=== PATIENT | male | born 1960 | race Caucasian/White ===

== ENCOUNTER 2020-10-23 08:11 | Outpatient (REF) | payer BC, SELFPAY ==
[2020-10-23 11:44] LABS: Alanine Aminotransferase 23 U/L (0-40); Albumin Level 4.3 g/dL (3.5-5.0); Alkaline Phosphatase 62 U/L (39-117); Anion Gap 13 (12-20); Aspartate Amino Transferase 22 U/L (5-37); Bilirubin Total 0.4 mg/dL (0.0-1.0); Blood Urea Nitrogen 19 mg/dL (9-16); Calcium 9.1 mg/dL (8.4-10.2); Carbon Dioxide 26 mmol/L (22-29); Chloride 104 mmol/L (96-108); Cholesterol 138 mg/dL; Estimated Glomerular Filt Rate > 60; Glucose Fasting 97 mg/dL (60-99); HDL Cholesterol 43 mg/dL; LDL Cholesterol Calculated 66 mg/dl; Sodium 139 mmol/L (135-145); Total Protein 7.2 g/dL (6.5-8.0); Triglycerides 146 mg/dL
[2020-10-23 12:07] LABS: Prostate Specific Antigen Scr 0.67 ng/mL (<0.05-4.0); TSH reflex Free T4 1.52 mIU/mL (0.32-4.0)
== END 2020-10-23 08:12 | disposition home or self-care (01) ==
LOC: HO.HMGCLDS 08:11
PROVIDERS: PCP Nurse Practitioner Family; Visit Provider Nurse Practitioner Family
DX: I10 Essential (primary) hypertension (principal); Z12.5 Encounter for screening for malignant neoplasm of prostate
CPT/HCPCS: 80053; 80061; 84153; 84443

== ENCOUNTER 2021-02-25 10:50 | Outpatient (REF) | payer BC, SELFPAY ==
--- NOTE | ~2021-02-25 | XR_ITS ---
EXAMINATION: XR CHEST CLINICAL INFORMATION: Cough. COMPARISON: Chest 12/05/2015 TECHNIQUE: 2 views of the chest were obtained. FINDINGS: The lungs are hyperinflated but clear of acute process. Heart size and pulmonary vascularity is normal. There is moderate spondylosis of dorsal spine. No lytic process. XR/XR chest 2V IMPRESSION: Hyperinflated lungs. No acute process.
== END 2021-02-25 10:51 | disposition home or self-care (01) ==
LOC: HO.HMGCX 10:50
PROVIDERS: Visit Provider Hospitalist
DX: R05 Cough (principal)
CPT/HCPCS: 71046

== ENCOUNTER 2021-05-07 10:24 | Outpatient (REF) | payer BC, SELFPAY ==
--- NOTE | ~2021-05-07 | XR_ITS ---
EXAMINATION: XR CHEST CLINICAL INFORMATION: Bronchitis; J40. COMPARISON: Chest radiographs 02/25/2021, 12/05/2015 TECHNIQUE: 2 views of the chest were obtained. FINDINGS: There is no hyperinflation, airspace consolidation, or effusion. The costophrenic sulci are well-defined. No bronchiectasis demonstrated. The vascularity is normal. The heart is normal in size. The hilar and mediastinal contours and bony structures are stable. XR/XR chest 2V IMPRESSION: No acute intrathoracic disease.
== END 2021-05-07 10:25 | disposition home or self-care (01) ==
LOC: HO.HMGCX 10:24
PROVIDERS: PCP Nurse Practitioner Family; Visit Provider Hospitalist
DX: J40 Bronchitis, not specified as acute or chronic (principal)
CPT/HCPCS: 71046

== ENCOUNTER → 2021-08-20 15:28 | Outpatient (BNVA) | payer BC, SELFPAY | PROVIDERS: PCP Nurse Practitioner Family; Visit Provider Internal Medicine ==

== ENCOUNTER 2021-09-17 08:44 | Outpatient (REF) | payer BC, SELFPAY ==
[2021-09-17 11:42] LABS: Appearance Urine CLEAR; Color Urine STRAW; Glucose Urine UA NEG (NEG); Leukocyte Esterase Urine NEG (NEG); Nitrite Urine NEG (NEG); UACC Culture Trigger NO; Urine Blood 2+ (NEG); Urine Ketones NEG (NEG); Urine Protein NEG (NEG-TRACE)
[2021-09-17 11:56] LABS: Alanine Aminotransferase 28 U/L (0-40); Albumin Level 4.5 g/dL (3.5-5.0); Alkaline Phosphatase 73 U/L (39-117); Anion Gap 11 (12-20); Aspartate Amino Transferase 26 U/L (5-37); Bilirubin Total 0.6 mg/dL (0.0-1.0); Blood Urea Nitrogen 16 mg/dL (9-16); Calcium 9.3 mg/dL (8.4-10.2); Carbon Dioxide 28 mmol/L (22-29); Chloride 104 mmol/L (96-108); Cholesterol 134 mg/dL; Estimated Glomerular Filt Rate > 60; Glucose Fasting 105 mg/dL (60-99); HDL Cholesterol 40 mg/dL; LDL Cholesterol Calculated 66 mg/dl; Potassium 4.1 mmol/L (3.3-5.1); Sodium 139 mmol/L (135-145); Total Protein 7.3 g/dL (6.5-8.0); Triglycerides 142 mg/dL
[2021-09-17 12:03] LABS: Prostate Specific Antigen Scr 0.39 ng/mL (<0.05-4.0); TSH reflex Free T4 1.39 uIU/mL (0.32-4.0)
== END 2021-09-17 08:45 | disposition home or self-care (01) ==
LOC: HO.HMGCLDS 08:44
PROVIDERS: PCP Nurse Practitioner Family; Visit Provider Nurse Practitioner Family
DX: Z00.00 Encounter for general adult medical examination without abnormal findings (principal); Z12.5 Encounter for screening for malignant neoplasm of prostate
CPT/HCPCS: 36415; 80053; 80061; 81001; 84153; 84443

== ENCOUNTER → 2021-09-29 15:45 | Outpatient (BNVA) | payer BC, SELFPAY | PROVIDERS: PCP Nurse Practitioner Family; Visit Provider Internal Medicine ==

== ENCOUNTER 2021-10-13 15:41 | Outpatient (REF) | payer BC, SELFPAY ==
--- NOTE | 2021-10-13 17:38 | PFT_ITS ---
Forced vital capacity, FEV1, GQC07-75, and MVV are all normal. There is no change after bronchodilator therapy. Total lung capacity normal. Residual volume is slightly decreased. Diffusion capacity normal. CONCLUSION: Normal pulmonary function test. No response to bronchodilator therapy noted. Ryder Prasad MD MSB/MODL / [id number]
== END 2021-10-13 15:42 | disposition home or self-care (01) ==
LOC: HO.RESP 15:41
PROVIDERS: PCP Nurse Practitioner Family; Visit Provider Internal Medicine
DX: J45.909 Unspecified asthma, uncomplicated (principal); R05.9 Cough, unspecified
CPT/HCPCS: 94060; 94727; 94729

== ENCOUNTER 2021-11-18 08:01 | Outpatient (REF) | payer BC, SELFPAY ==
[2021-11-18 11:27] LABS: MANUAL DIFF FLAG NO
[2021-11-18 11:30] LABS: Basophils Percent Auto 0.6 % (0-2); Eosinophils Absolute Auto 0.3 X10*3/uL (0.0-0.4); Eosinophils Percent Auto 5.5 % (0-4); Hematocrit 45.3 % (42.0-52.0); Imm Gran Abs Auto 0.02 X10*3/uL (0.00-0.03); Imm Gran Pct Auto 0.3 % (0.0-0.4); Lymphocytes Absolute Auto 1.5 X10*3/uL (1.2-4.9); Lymphocytes Percent Auto 24.3 % (20-40); Mean Corpuscular HGB Conc 33.1 g/dl (31.0-36.0); Mean Corpuscular Hemoglobin 29.5 pg (27.0-33.0); Monocytes Absolute Auto 0.5 X10*3/uL (0.1-1.2); Monocytes Percent Auto 7.2 % (2-11); Neutrophils Absolute Auto 3.9 x10*3/uL (2.0-8.3); Neutrophils Percent Auto 62.1 % (45-73); Platelet Count 227 X10*3/uL (160-400); Red Blood Count 5.09 X10*6/uL (4.60-5.80); Red Cell Distribution Width 12.3 % (11.0-16.0); White Blood Count 6.2 X10*3/uL (4.8-10.8)
[2021-11-18 11:34] LABS: Prothrombin Time 11.2 SEC (9.9-13.0)
[2021-11-18 11:36] LABS: Partial Thromboplastin Time 32.1 SEC (24.1-38.0)
[2021-11-18 11:51] LABS: Alanine Aminotransferase 34 U/L (0-40); Albumin Level 4.4 g/dL (3.5-5.0); Alkaline Phosphatase 73 U/L (39-117); Anion Gap 11 (12-20); Aspartate Amino Transferase 26 U/L (5-37); Bilirubin Total 0.8 mg/dL (0.0-1.0); Blood Urea Nitrogen 22 mg/dL (9-16); Calcium 9.7 mg/dL (8.4-10.2); Carbon Dioxide 28 mmol/L (22-29); Chloride 106 mmol/L (96-108); Estimated Glomerular Filt Rate > 60; Glucose Random 113 mg/dL (60-115); Potassium 4.4 mmol/L (3.3-5.1); Sodium 141 mmol/L (135-145); Total Protein 7.3 g/dL (6.5-8.0)
== END 2021-11-18 08:02 | disposition home or self-care (01) ==
LOC: HO.HMGCLDS 08:01
PROVIDERS: PCP Nurse Practitioner Family; Visit Provider Nurse Practitioner Family
DX: Z01.818 Encounter for other preprocedural examination (principal)
CPT/HCPCS: 36415; 80053; 85025; 85610; 85730

== ENCOUNTER → 2022-07-26 13:45 | Outpatient (REF) | payer BC, SELFPAY ==
--- NOTE | 2022-07-26 13:55 | HM_ITS ---
Conclusion: 1. Patient was monitored for total period of 3 days and 1 hour 2. Baseline rhythm was normal sinus rhythm with average heart rate of 67 beats per minute 3. No significant pauses or bradycardia noted 4. Very rare ectopy noted 5. Few short runs of SVT noted with longest episode lasting 4 beats at 155 beats per minute 6. No patient reported events MTDD
--- NOTE | 2022-07-26 13:55 | CA_ITS ---
Transthoracic Echocardiogram Patient (Last, First, Middle): Faraz Bailey D Gender: Male Date of : 1960 Age: 62 Procedure Date: 07/26/2022 Procedure Type: Transthoracic Echocardiogram Location: OP Height: 175.26 cm Weight: 83.92 kg BSA: 2.00 m2 Heart Rate: 64 bpm BP: 136 / 70 mmHg Thermodynamic Physicist: MEREDITH Referring MD: Abdulkadir Sanchez MD [employer] Liaison Officer: Abdulkadir Sanchez MD Symptoms: I49.3 - Ventricular premature depolarization Study Quality: Adequate ECG Rhythm: Sinus Conclusions: - Essentially normal study Findings Left Ventricle Normal left ventricular size, thickness, and systolic function. The visually estimated ejection fraction is between 60-65%. Spectral Doppler is indicative of a normal filling pattern. Right Ventricle Normal right ventricular cavity size and systolic function. Atria The left atrium is normal in size. There is no evidence of interatrial shunt. The right atrium is normal in size. Aortic Valve The aortic valve structure and function is likely normal. There is no aortic valve stenosis. There is no aortic valve regurgitation. Mitral Valve Normal mitral valve structure and function. There is trace mitral valve regurgitation. There is no mitral valve stenosis. Pulmonic Valve The pulmonic valve is likely normal. Tricuspid Valve Normal tricuspid valve structure. There is trace tricuspid valve regurgitation. The right ventricular systolic pressure is normal. The right ventricular systolic pressure is 35 mmHg. Normal right atrial pressure. There is no evidence of pulmonary hypertension. Great Vessels All visible segments of the aorta are normal in size. The pulmonary artery was not well visualized. Venous The inferior vena cava is normal in size and collapses greater than 50% with inspiration. Pericardium/Pleural There is no evidence of pericardial effusion. Measurements 2D Linear Measurements IVSd: 0.98 0.6-0.9/0.6-1.0 cm LVIDd: 5.02 3.9-5.3/4.2-5.9 cm LVIDd Index: 2.51 2.4-3.2/2.2-3.1 cm/m2 LVIDs: 3.17 2.0-3.6 cm LVPWd: 0.76 0.7-1.1 cm LA Diam: 3.70 2.7-3.8/3.0-4.0 cm LAIDs Index: 1.85 1.5-2.3 cm/m2 LV Mass: 189.99 67-162/88-224 g LV Mass Index: 95.00 43-95/49-115 g/m2 LVOT Diam: 2.10 3.0+(-)1.3 cm 2D Systolic Function EF 4C: 57.10 >55% Mitral Valve MV Pk E: 1.14 MV PK A: 0.86 MV Decel Time: 170.00 E/A: 1.30 E'Lateral: 10.30 E'Medial: 6.64 E/E' Med: 17.20 E/E' Lat: 11.10 PHT: 50.00 MVA PHT: 4.40 Decel Dade: 6.72 Aortic Valve AoV Pk Edmund: 1.65 AoV Mn Edmund: 1.10 AoV VTI: 0.37 AoV Pk Grad: 11.00 Aov Mn Grad: 5.00 STEPHANIE Cont.VTI: 2.71 LVOT LVOT Pk Edmund: 1.50 LVOT Mn Edmund: 0.96 LVOT VTI: 0.29 LVOT Pk Grad: 9.00 LVOT Mn Grad: 4.00 LVOT Diam: 2.10 LVOT Area: 3.46 Diastolic Function MV Pk E: 1.14 MV Pk A: 0.86 E/A: 1.30 E'Medial: 6.64 E/E' Med: 17.20 E' Laterial: 10.30 E/E' Lat: 11.10 Right Ventricle TAPSE (mm): 24.30 TVS' Edmund: 10.70 Tricuspid Valve TR Pk Edmund: 2.85 TR Pk Grad: 32.00 RA Press: 3.00 RVSP: 35.00 Great Vessels Aorta Sinus of Valsalva: 3.10 2.0-3.5 cm Ao Asc: 3.20 2.1-3.4 cm Pulmonary Veins Pulm Vein S/D 0.90 Pulmonary Valve PV Pk Edmund: 0.92 Peak PV Grad: 3.00 Updated in Other Vendor System with Status of Final Abdulkadir Sanchez MD electronically signed on 07/26/2022 4:50:26 PM with status of Final
== END ==
LOC: HO.CARD 13:45
PROVIDERS: Visit Provider Internal Medicine Cardiovascular Disease
DX: I49.3 Ventricular premature depolarization (principal); I10 Essential (primary) hypertension; G47.33 Obstructive sleep apnea (adult) (pediatric)
CPT/HCPCS: 93242; 93306

== ENCOUNTER → 2022-07-30 07:41 | Outpatient (REF) | payer BC, SELFPAY ==
--- NOTE | 2022-07-30 07:44 | CA_ITS ---
Acquisition Time: 2022-07-30 07:57:40 Total Exercise Time: 00:08:59 Test Indications: pvc's Medications: see chart Protocol: AUGUSTINA Max HR: 139 BPM 89% of Pred: 156 BPM Max BP: 172/078 mmHG Max Work Load: 10.1 METS Exercise stress test with exercise 8 min 59 sec of Augustina protocol, without anginal symptoms, with isolated PVC, with normotensive response to exercise, with borderline EKG changes in V4-V6 which correct quickly in recovery. EKG tracings and report reviewed with Dr Sanchez. Test: borderline positive. Referred By: Abdulkadir Sanchez Overread By: REHAN SCHAEFFER
== END ==
LOC: HO.CARD 07:41
PROVIDERS: Visit Provider Internal Medicine Cardiovascular Disease
DX: I49.3 Ventricular premature depolarization (principal)
CPT/HCPCS: 93017

== ENCOUNTER → 2022-09-15 10:49 | Outpatient (REF) | payer BC, SELFPAY ==
--- NOTE | 2022-09-15 10:53 | CA_ITS ---
Acquisition Time: 2022-09-15 11:30:31 Total Exercise Time: 00:09:35 Test Indications: abn ett Medications: see chart Protocol: AUGUSTINA Max HR: 141 BPM 90% of Pred: 156 BPM Max BP: 204/082 mmHG Max Work Load: 11.0 METS Exercise stress test with exercise 9 min 35 sec of Augustina protocol achieving > 85% MPHR, without anginal symptoms, with isolated PACs and PVCs, with BP 158/72 at baseline and BP 204/82 in early recovery, with borderline EKG changes suggestive of ischemia inferolateral leads. Echo images obtained by [employer] at rest and immediately post peak exercise. Definity contrast used. Test reviewed with Dr Farfan. Referred By: Abdulkadir Sanchez Overread By: REHAN SCHAEFFER
== END ==
LOC: HO.CARD 10:49
PROVIDERS: Visit Provider Internal Medicine Cardiovascular Disease
DX: R94.39 Abnormal result of other cardiovascular function study (principal)
CPT/HCPCS: 93350; Q9957

== ENCOUNTER 2022-09-24 07:56 | Outpatient (REF) | payer BC, SELFPAY ==
[2022-09-24 11:30] LABS: Appearance Urine Turbid; Color Urine Yellow; Glucose Urine UA Negative (Negative); Leukocyte Esterase Urine Negative (Negative); Nitrite Urine Negative (Negative); PH 5.5 (5.0-9.0); UMIC TRIGGER UACC YES; Urine Blood Small (1+) (Negative); Urine Ketones Negative (Negative); Urine Protein Negative (Neg-Trace)
[2022-09-24 11:32] LABS: MANUAL DIFF FLAG NO
[2022-09-24 11:48] LABS: Basophils Percent Auto 0.3 % (0-2); Eosinophils Absolute Auto 0.2 X10*3/uL (0.0-0.4); Eosinophils Percent Auto 3.1 % (0-4); Hematocrit 43.3 % (42.0-52.0); Hemoglobin 14.5 g/dl (14.0-18.0); Imm Gran Abs Auto 0.04 X10*3/uL (0.00-0.03); Imm Gran Pct Auto 0.6 % (0.0-0.4); Lymphocytes Absolute Auto 1.8 X10*3/uL (1.2-4.9); Lymphocytes Percent Auto 28.4 % (20-40); Mean Corpuscular HGB Conc 33.5 g/dl (31.0-36.0); Mean Corpuscular Hemoglobin 29.8 pg (27.0-33.0); Mean Corpuscular Volume 88.9 fL (80.0-98.0); Mean Platelet Volume 9.7 fL (9.4-12.4); Monocytes Absolute Auto 0.6 X10*3/uL (0.1-1.2); Monocytes Percent Auto 9.1 % (2-11); Neutrophils Absolute Auto 3.7 x10*3/uL (2.0-8.3); Neutrophils Percent Auto 58.5 % (45-73); Platelet Count 223 X10*3/uL (160-400); Red Blood Count 4.87 X10*6/uL (4.60-5.80); Red Cell Distribution Width 12.3 % (11.0-16.0); White Blood Count 6.4 X10*3/uL (4.8-10.8)
[2022-09-24 11:56] LABS: Alanine Aminotransferase 30 U/L (0-40); Albumin Level 4.1 g/dL (3.5-5.0); Alkaline Phosphatase 64 U/L (39-117); Anion Gap 15 (12-20); Aspartate Amino Transferase 29 U/L (5-37); Bilirubin Total 0.4 mg/dL (0.0-1.0); Blood Urea Nitrogen 20 mg/dL (9-16); Calcium 9.1 mg/dL (8.4-10.2); Carbon Dioxide 24 mmol/L (22-29); Chloride 105 mmol/L (96-108); Cholesterol 152 mg/dL; Estimated Glomerular Filt Rate > 60; Glucose Fasting 114 mg/dL (60-99); HDL Cholesterol 42 mg/dL; LDL Cholesterol Calculated 88 mg/dl; Potassium 4.3 mmol/L (3.3-5.1); Sodium 140 mmol/L (135-145); Total Protein 6.8 g/dL (6.5-8.0); Triglycerides 111 mg/dL
[2022-09-24 11:58] LABS: Bacteria Urine None Seen (None Seen); Hyaline Casts Urine 0-2 /LPF (0-2); RBC Urine 0-2 /HPF (0-2); Squamous Epithelial Cell Urine 0-2 /HPF (0-2); WBC Urine 0-5 /HPF (0-5)
[2022-09-24 12:22] LABS: Prostate Specific Antigen Scr 0.35 ng/mL (<0.05-4.0); TSH reflex Free T4 1.75 uIU/mL (0.32-4.0)
== END 2022-09-24 07:57 | disposition home or self-care (01) ==
LOC: HO.HMGCLDS 07:56
PROVIDERS: PCP Nurse Practitioner Family; Visit Provider Nurse Practitioner Family
DX: I10 Essential (primary) hypertension (principal); Z12.5 Encounter for screening for malignant neoplasm of prostate
CPT/HCPCS: 36415; 80053; 80061; 81001; 84153; 84443; 85025

== ENCOUNTER → 2022-12-02 13:23 | Outpatient (BNVA) | payer BC, SELFPAY | PROVIDERS: PCP Nurse Practitioner Family; Referring Provider Nurse Practitioner Family; Visit Provider Nurse Practitioner Family | DX: R00.2 Palpitations (principal) ==

== ENCOUNTER 2023-03-10 07:56 | Outpatient (REF) | payer BC, SELFPAY ==
[2023-03-10 11:04] LABS: MANUAL DIFF FLAG NO
[2023-03-10 11:15] LABS: Appearance Urine Clear; Color Urine Yellow; Glucose Urine UA Negative (Negative); Leukocyte Esterase Urine Negative (Negative); Nitrite Urine Negative (Negative); Specific Gravity - Urine 1.015 (1.005-1.025); UMIC TRIGGER UACC YES; Urine Blood Small (1+) (Negative); Urine Ketones Negative (Negative); Urine Protein Negative (Neg-Trace)
[2023-03-10 11:29] LABS: Bacteria Urine None Seen (None Seen); Hyaline Casts Urine 0-2 /LPF (0-2); RBC Urine 0-2 /HPF (0-2); Squamous Epithelial Cell Urine 0-2 /HPF (0-2); WBC Urine 0-5 /HPF (0-5)
[2023-03-10 11:42] LABS: Basophils Percent Auto 0.4 % (0-2); Eosinophils Absolute Auto 0.2 X10*3/uL (0.0-0.4); Eosinophils Percent Auto 3.3 % (0-4); Hematocrit 43.4 % (42.0-52.0); Hemoglobin 14.3 g/dl (14.0-18.0); Imm Gran Abs Auto 0.03 X10*3/uL (0.00-0.03); Imm Gran Pct Auto 0.5 % (0.0-0.4); Lymphocytes Absolute Auto 1.8 X10*3/uL (1.2-4.9); Lymphocytes Percent Auto 31.5 % (20-40); Mean Corpuscular HGB Conc 32.9 g/dl (31.0-36.0); Mean Corpuscular Hemoglobin 29.5 pg (27.0-33.0); Mean Corpuscular Volume 89.7 fL (80.0-98.0); Mean Platelet Volume 9.8 fL (9.4-12.4); Monocytes Absolute Auto 0.5 X10*3/uL (0.1-1.2); Monocytes Percent Auto 9.1 % (2-11); Neutrophils Absolute Auto 3.2 x10*3/uL (2.0-8.3); Neutrophils Percent Auto 55.2 % (45-73); Platelet Count 208 X10*3/uL (160-400); Red Blood Count 4.84 X10*6/uL (4.60-5.80); Red Cell Distribution Width 13.6 % (11.0-16.0); White Blood Count 5.7 X10*3/uL (4.8-10.8)
[2023-03-10 12:35] LABS: Urine Cytology See Pathology rpt
[2023-03-10 12:43] LABS: Alanine Aminotransferase 34 U/L (0-40); Albumin Level 4.3 g/dL (3.5-5.0); Alkaline Phosphatase 72 U/L (39-117); Aspartate Amino Transferase 36 U/L (5-37); Bilirubin Total 0.7 mg/dL (0.0-1.0); Blood Urea Nitrogen 16 mg/dL (9-16); Calcium 9.5 mg/dL (8.4-10.2); Carbon Dioxide 25 mmol/L (22-29); Chloride 107 mmol/L (96-108); Cholesterol 166 mg/dL; Estimated Glomerular Filt Rate > 60; Ferritin 493 ng/mL (20-250); Glucose Fasting 110 mg/dL (60-99); HDL Cholesterol 47 mg/dL; Iron 67 mcg/dL (45-160); LDL Cholesterol Calculated 95 mg/dl; Percent Iron Saturation 23 % (15-50); Potassium 4.2 mmol/L (3.3-5.1); Sodium 141 mmol/L (135-145); Total Iron Binding Capacity 288 mcg/dL (228-428); Total Protein 6.9 g/dL (6.5-8.0); Triglycerides 120 mg/dL; Unsaturated Iron Binding 221 ug/dL
[2023-03-10 12:51] LABS: Anion Gap 13 (12-20)
== END 2023-03-10 07:57 | disposition home or self-care (01) ==
LOC: HO.HMGCLDS 07:56
PROVIDERS: PCP Nurse Practitioner Family; Visit Provider Nurse Practitioner Family
DX: Z00.00 Encounter for general adult medical examination without abnormal findings (principal); G25.81 Restless legs syndrome; R31.29 Other microscopic hematuria; I10 Essential (primary) hypertension
CPT/HCPCS: 36415; 80053; 80061; 81001; 82728; 83540; 84443; 85025; 87086; 88112

== ENCOUNTER 2023-03-14 14:48 | Outpatient (REF) | payer BC, SELFPAY ==
[2023-03-14 16:31] LABS: Appearance Urine Clear; Color Urine Yellow; Glucose Urine UA Negative (Negative); Leukocyte Esterase Urine Negative (Negative); Nitrite Urine Negative (Negative); PH 5.5 (5.0-9.0); UMIC TRIGGER UACC YES; Urine Blood Small (1+) (Negative); Urine Ketones Negative (Negative); Urine Protein Negative (Neg-Trace)
[2023-03-14 16:44] LABS: Bacteria Urine None Seen (None Seen); Hyaline Casts Urine 0-2 /LPF (0-2); RBC Urine 0-2 /HPF (0-2); Squamous Epithelial Cell Urine 0-2 /HPF (0-2); WBC Urine 0-5 /HPF (0-5)
[2023-03-14 17:05] LABS: C Reactive Protein 0.22 mg/dL (< or = 0.50)
[2023-03-14 17:16] LABS: Erythrocyte Sedimentation Rate 6 MM/HR (0-15)
== END 2023-03-14 14:49 | disposition home or self-care (01) ==
LOC: HO.HMGCLDS 14:48
PROVIDERS: PCP Nurse Practitioner Family; Visit Provider Nurse Practitioner Family
DX: R79.89 Other specified abnormal findings of blood chemistry (principal); I10 Essential (primary) hypertension
CPT/HCPCS: 36415; 81001; 81256; 85652; 86140

== ENCOUNTER 2023-04-21 12:21 | Outpatient (REF) | payer BC, SELFPAY ==
[2023-04-21 13:54] LABS: MANUAL DIFF FLAG NO
[2023-04-21 13:59] LABS: Basophils Percent Auto 0.5 % (0-2); Eosinophils Absolute Auto 0.2 X10*3/uL (0.0-0.4); Eosinophils Percent Auto 2.9 % (0-4); Hematocrit 43.3 % (42.0-52.0); Hemoglobin 14.2 g/dl (14.0-18.0); Imm Gran Abs Auto 0.03 X10*3/uL (0.00-0.03); Imm Gran Pct Auto 0.5 % (0.0-0.4); Lymphocytes Percent Auto 31.6 % (20-40); Mean Corpuscular HGB Conc 32.8 g/dl (31.0-36.0); Mean Corpuscular Hemoglobin 29.2 pg (27.0-33.0); Mean Corpuscular Volume 88.9 fL (80.0-98.0); Mean Platelet Volume 9.9 fL (9.4-12.4); Monocytes Absolute Auto 0.4 X10*3/uL (0.1-1.2); Monocytes Percent Auto 6.7 % (2-11); Neutrophils Absolute Auto 3.6 x10*3/uL (2.0-8.3); Neutrophils Percent Auto 57.8 % (45-73); Platelet Count 213 X10*3/uL (160-400); Red Blood Count 4.87 X10*6/uL (4.60-5.80); Red Cell Distribution Width 12.5 % (11.0-16.0); White Blood Count 6.2 X10*3/uL (4.8-10.8)
[2023-04-21 14:24] LABS: Alanine Aminotransferase 24 U/L (0-40); Albumin Level 4.1 g/dL (3.5-5.0); Alkaline Phosphatase 75 U/L (39-117); Anion Gap 10 (12-20); Aspartate Amino Transferase 22 U/L (5-37); Bilirubin Total 0.8 mg/dL (0.0-1.0); Blood Urea Nitrogen 12 mg/dL (9-16); Calcium 9.5 mg/dL (8.4-10.2); Carbon Dioxide 28 mmol/L (22-29); Chloride 108 mmol/L (96-108); Estimated Glomerular Filt Rate > 60; Glucose Random 84 mg/dL (60-115); Sodium 142 mmol/L (135-145); Total Protein 6.9 g/dL (6.5-8.0)
[2023-04-21 14:45] LABS: Ferritin 454 ng/mL (20-250)
== END 2023-04-21 12:22 | disposition home or self-care (01) ==
LOC: HO.HMGCLDS 12:21
PROVIDERS: PCP Nurse Practitioner Family; Visit Provider Nurse Practitioner Family
DX: R79.89 Other specified abnormal findings of blood chemistry (principal)
CPT/HCPCS: 36415; 80053; 82728; 85025

== ENCOUNTER 2023-06-27 12:04 | Outpatient (REF) | payer BC, SELFPAY ==
[2023-06-27 14:59] LABS: Ferritin 427 ng/mL (20-250)
== END 2023-06-27 12:05 | disposition home or self-care (01) ==
LOC: HO.HMGCLDS 12:04
PROVIDERS: PCP Nurse Practitioner Family; Visit Provider Nurse Practitioner Family
DX: R79.89 Other specified abnormal findings of blood chemistry (principal)
CPT/HCPCS: 36415; 82728

== ENCOUNTER 2023-07-15 10:20 | Outpatient (REF) | payer BC, SELFPAY ==
--- NOTE | ~2023-07-15 | US_ITS ---
EXAMINATION: US ABDOMEN COMPLETE CLINICAL INFORMATION: Elevated ferritin. COMPARISON: Ultrasound abdomen complete dated 11/06/2019. TECHNIQUE: Real-time imaging of the abdominal viscera. FINDINGS: PANCREAS: Normal. ABDOMINAL AORTA: The proximal, mid, and distal segments are normal in caliber. There are distal atherosclerotic calcifications. INFERIOR VENA CAVA: Visualized portions are normal. LIVER: Normal. The liver is normal in size. The liver contour is normal. Parenchymal echogenicity is normal. No focal hepatic lesion. There is no intrahepatic biliary duct dilatation seen. GALLBLADDER: Normal. The gallbladder is physiologically distended without evidence of stones, sludge, polyps, wall thickening or pericholecystic fluid. COMMON BILE DUCT: Normal in caliber measuring 0.4 cm in diameter. RIGHT KIDNEY: Normal. No hydronephrosis. No renal calculi or focal parenchymal lesions. The kidney measures 12.2 cm in maximum dimension. LEFT KIDNEY: Normal. No hydronephrosis. No renal calculi or focal parenchymal lesions. The kidney measures 12.2 cm in maximum dimension. SPLEEN: Normal. The spleen measures 10.3 cm in maximum dimension. FREE FLUID: None. US/US abdomen complete IMPRESSION: Unremarkable examination.
== END 2023-07-15 10:21 | disposition home or self-care (01) ==
LOC: HO.HMGCX 10:20
PROVIDERS: PCP Nurse Practitioner Family; Visit Provider Nurse Practitioner Family
DX: R79.89 Other specified abnormal findings of blood chemistry (principal); Z87.19 Personal history of other diseases of the digestive system
CPT/HCPCS: 76700

== ENCOUNTER → 2023-07-29 11:20 | Outpatient (BNV) | payer BC, MEDICARE, SELFPAY | PROVIDERS: PCP Nurse Practitioner Family; Visit Provider Internal Medicine | DX: R79.89 Other specified abnormal findings of blood chemistry (principal) | CPT/HCPCS: 99204; 99213; 99214 ==

== ENCOUNTER 2023-12-01 08:44 | Outpatient (REF) | payer MEDICARE, SELFPAY ==
[2023-12-01 11:47] LABS: Appearance Urine Turbid; Color Urine Yellow; Glucose Urine UA Negative (Negative); Leukocyte Esterase Urine Negative (Negative); Nitrite Urine Negative (Negative); PH 5.5 (5.0-9.0); Specific Gravity - Urine 1.025 (1.005-1.025); UMIC TRIGGER UACC YES; Urine Blood Trace (Negative); Urine Ketones Negative (Negative); Urine Protein Negative (Neg-Trace)
[2023-12-01 11:49] LABS: MANUAL DIFF FLAG NO
[2023-12-01 11:52] LABS: Bacteria Urine None Seen (None Seen); Hyaline Casts Urine 0-2 /LPF (0-2); RBC Urine 0-2 /HPF (0-2); Squamous Epithelial Cell Urine 0-2 /HPF (0-2); WBC Urine 0-5 /HPF (0-5)
[2023-12-01 12:12] LABS: Basophils Absolute Auto 0.1 X10*3/uL (0.0-0.2); Basophils Percent Auto 0.9 % (0-2); Eosinophils Absolute Auto 0.2 X10*3/uL (0.0-0.4); Eosinophils Percent Auto 3.9 % (0-4); Hematocrit 46.5 % (42.0-52.0); Hemoglobin 15.3 g/dl (14.0-18.0); Imm Gran Abs Auto 0.03 X10*3/uL (0.00-0.03); Imm Gran Pct Auto 0.5 % (0.0-0.4); Lymphocytes Absolute Auto 1.7 X10*3/uL (1.2-4.9); Mean Corpuscular HGB Conc 32.9 g/dl (31.0-36.0); Mean Corpuscular Volume 88.1 fL (80.0-98.0); Mean Platelet Volume 9.9 fL (9.4-12.4); Monocytes Absolute Auto 0.5 X10*3/uL (0.1-1.2); Monocytes Percent Auto 8.2 % (2-11); Neutrophils Absolute Auto 3.4 x10*3/uL (2.0-8.3); Neutrophils Percent Auto 57.5 % (45-73); Platelet Count 244 X10*3/uL (160-400); Red Blood Count 5.28 X10*6/uL (4.60-5.80); Red Cell Distribution Width 13.9 % (11.0-16.0); White Blood Count 5.8 X10*3/uL (4.8-10.8)
[2023-12-01 12:33] LABS: Prostate Specific Antigen Scr 0.48 ng/mL (<0.05-4.0)
[2023-12-01 12:42] LABS: Alanine Aminotransferase 27 U/L (0-40); Albumin Level 4.3 g/dL (3.5-5.0); Alkaline Phosphatase 79 U/L (39-117); Anion Gap 14 (12-20); Aspartate Amino Transferase 28 U/L (5-37); Bilirubin Total 0.5 mg/dL (0.0-1.0); Blood Urea Nitrogen 27 mg/dL (9-16); Calcium 9.8 mg/dL (8.4-10.2); Carbon Dioxide 28 mmol/L (22-29); Chloride 107 mmol/L (96-108); Cholesterol 160 mg/dL (<200); Estimated Glomerular Filt Rate > 60; Glucose Fasting 106 mg/dL (60-99); HDL Cholesterol 43 mg/dL (>40); LDL Cholesterol Calculated 83 mg/dL (<100); Potassium 4.5 mmol/L (3.3-5.1); Sodium 144 mmol/L (135-145); Total Protein 7.5 g/dL (6.5-8.0); Triglycerides 172 mg/dL (<150)
[2023-12-01 12:44] LABS: Ferritin 550 ng/mL (20-250); TSH reflex Free T4 1.89 uIU/mL (0.32-4.0)
== END 2023-12-01 08:45 | disposition home or self-care (01) ==
LOC: HO.HMGCLDS 08:44
PROVIDERS: PCP Nurse Practitioner Family; Visit Provider Nurse Practitioner Family
DX: Z12.5 Encounter for screening for malignant neoplasm of prostate (principal); I10 Essential (primary) hypertension; R79.89 Other specified abnormal findings of blood chemistry; E78.5 Hyperlipidemia, unspecified
CPT/HCPCS: 36415; 80053; 80061; 81001; 82728; 84153; 84443; 85025

== ENCOUNTER 2023-12-14 14:03 | Outpatient (AMB) | payer MEDICARE, SELFPAY ==
--- NOTE | 2023-12-14 14:34 | A.OFFPC_ITS ---
Vital Signs 12/14/23 14:35 Height 5 ft 9 in Weight 181 lb 6 oz BMI 26.8 BP 128/72 Blood Pressure Location Rt brachial Position Sitting Pulse 58 Pulse Source Pulse Oximeter Pulse Oximetry (%) 98 Oxygen Delivery Method Room Air Intake Visit Reasons: 6M Follow up, rescheduled from 09/26 Intake Note: Pt is here to follow for HTN and lipids Allergies erythromycin base [ERYTHROMYCIN BASE] Allergy (Unknown, Verified 12/14/23 14:36) Gastrointestinal Upset penicillin V Allergy (Unknown, Verified 12/14/23 14:36) Gastrointestinal Upset Penicillins [PENICILLINS] Allergy (Unknown, Verified 12/14/23 14:36) Gastrointestinal Upset Tobacco use date assessed: 12/14/23 Fall risk assessment: No Falls in past year Last assessed Fall Risk: 12/14/23 Dental Screening Dental Screen Date: 12/14/23 Did you have a dental visit in the last 12 months?: Yes Did you have a dental problem in the last 6 months where you did not have access to dental care?: No Was dental information given to patient?: Patient has dentist HPI 6M Follow up, rescheduled from 09/26 HPI Details Pt has a hx of elevated ferritin. He is following up with hematology. Pt has cut down on drinking significantly. He quit drinking completely for 4 mo nths and his ferritin remained at 550. Due for colon screen, will refer to GI. Denies fever, chills, and dizziness. [facility] Medical History Obstructive sleep apnea on CPAP Asthma NICOLE (obstructive sleep apnea) Asthmatic bronchitis BPH (benign prostatic hyperplasia) Microscopic hematuria Urethral stricture Surgical History History of tonsillectomy History of appendectomy Family History Father HTN (hypertension) Mother No problems noted. Brother No problems noted. Sister No problems noted. Son No problems noted. Daughter No problems noted. Social History Housing: House Alcohol intake: current Alcohol intake frequency: a few times a week Patient Tobacco Use Status: Former Tobacco user Years Smoked: 20 years e-Cigarette/Vaping Use: Never Used Second Hand Smoke Exposure: No service: No Current occupational status: employed Current occupation: [employer] Current occupational exposures/hazards: No Cognitive needs: No Hearing needs: No Vision needs: No Questionnaire Thrive Questionnaire Date Thrive assessed: 03/24/23 JAMILAH-7 AMB Questionnaire JAMILAH-7 Date JAMILAH - 7 assessed: 03/24/23 Source: Developed by Drs. Rehan De La Cruz, Dayana Iglesias, Mendez Leigh and colleagues, with an educational reji from [employer]. Review of Systems Const Reports as per HPI Physical exam (Primary Care) Vital Signs: Last Vital Signs Pulse 58 12/14/23 14:35 BP 128/72 12/14/23 14:35 Pulse Ox 98 12/14/23 14:35 Oxygen Delivery Method Room Air 12/14/23 14:35 BMI result Body Mass Index 26.8 Tobacco/Smoking Status: Tobacco use Status Tobacco use date assessed 12/14/23 12/14/23 14:40 Patient Tobacco Use Status Former Tobacco user 12/14/23 14:40 e-Cigarette/Vaping Use Never Used 12/14/23 14:40 Thrive Assessment: Date of Thrive Assessment Date Thrive assessed 03/24/23 12/14/23 14:40 Const General: cooperative Orientation/consciousness: patient oriented x3 Resp Other: faint expiratory wheeze to right upper lobe Effort & Inspection: normal respiratory effort Cardio Rate: regular rate Rhythm: regular rhythm Heart sounds: S1 normal heart sound present and S2 normal heart sound present GI Palpation (GI): Soft to palpation and nontender Neuro General: patient oriented x3 Psych Appearance: grossly normal Mental Status: mental status grossly normal Speech and movement: Normal speech and movement present Affect: normal affect Attitude: cooperative Thought process: Normal thought process present Thought content: Normal thought content present Insight: Good insight present (Psych) Judgement: Good judgement present (Psych) Assessment and Plan Assessment & Plan (1) Screening for colon cancer: Code(s): Z12.11 - Encounter for screening for malignant neoplasm of colon Plan: Referred to GI (2) Elevated ferritin: Code(s): R79.89 - Other specified abnormal findings of blood chemistry Plan The patient agreed to the use of a medical records receptionist for this encounter. Scribed for HERLINDA Cagle-BC by Marcy Lewis medical records receptionist, on 12/14/2023 at 14:55 EST. Orders: Referrals Gastroenterology Referral Z12.11 - Encounter for screening for malignant neoplasm of colon Coding Level of Care Code Est Pt Level 3 (08164) Diagnoses Screening for colon cancer Z12.11 Elevated ferritin R79.89
[2023-12-14 14:35] VITALS: BP 128/72; PULSE 58; O2SAT 98; BMI 26.8
== END 2023-12-14 15:27 | disposition home or self-care (01) ==
PROVIDERS: PCP Nurse Practitioner Family; Visit Provider Nurse Practitioner Family
DX: Z12.11 Encounter for screening for malignant neoplasm of colon (principal); R79.89 Other specified abnormal findings of blood chemistry
CPT/HCPCS: 99213

== ENCOUNTER 2024-04-25 08:34 | Day surgery (SDC) | payer MEDICARE, SELFPAY ==
[2024-04-23 11:51] VITALS: BMI 27.2
--- NOTE | 2024-04-24 10:17 | P.CONAN_ITS ---
Documented by User: Taylor Gary NP 04/24/24 10:17 HPI - Anesthesia Eval Consult details Narrative: 64yo M for Colonoscopy PMFSH Active Problems Active Problems: All Active Problems Screening for colon cancer (Acute) History of fatty infiltration of liver (Acute) Elevated ferritin (Chronic) Elevated fasting blood sugar (Acute) Plantar fibromatosis (Acute) Chest discomfort (Acute) Palpitations (Acute) Viral illness (Acute) Otitis media (Acute) Restless leg (Acute) Physical exam (Acute) Pre-op evaluation (Acute) Wheezing (Acute) Tracheobronchitis (Acute) Cough (Acute) Hyperlipidemia, unspecified (Acute) Physical exam (Acute) Screening PSA (prostate specific antigen) (Acute) HTN (hypertension) (Acute) Microscopic hematuria (Acute) Asthma (Acute) NICOLE (obstructive sleep apnea) (Acute) Asthmatic bronchitis (Acute) Past Medical History Medical History (Updated 04/23/24 @ 11:47 by Candy Barrientos RN) Hiatal hernia Elevated PSA Anxiety Hyperlipidemia Obstructive sleep apnea on CPAP Asthma NICOLE (obstructive sleep apnea) Asthmatic bronchitis BPH (benign prostatic hyperplasia) Microscopic hematuria Urethral stricture Family History Family History Father HTN (hypertension) Mother No problems noted. Brother No problems noted. Sister No problems noted. Son No problems noted. Daughter No problems noted. Surgical History Surgical History (Updated 04/23/24 @ 11:47 by Candy Barrientos RN) Hx of arthroscopy of left knee History of esophagogastroduodenoscopy (EGD) H/O colonoscopy History of tonsillectomy History of appendectomy Social History Social History Housing: House Alcohol intake: current Alcohol intake frequency: a few times a week Patient Tobacco Use Status: Former Tobacco user Years Smoked: 20 years e-Cigarette/Vaping Use: Never Used Second Hand Smoke Exposure: No Advance Directives: No Advance Directives Information Provided: Yes service: No Current occupational status: employed Current occupation: [employer] Current occupational exposures/hazards: No Cognitive needs: No Hearing needs: No Vision needs: No Meds Allergies Allergy/AdvReac Type Severity Reaction Status Date / Time erythromycin base Allergy Unknown Gastrointestinal Verified 01/19/24 10:23 [ERYTHROMYCIN BASE] Upset penicillin V Allergy Unknown Gastrointestinal Verified 01/19/24 10:23 Upset Penicillins [PENICILLINS] Allergy Unknown Gastrointestinal Verified 01/19/24 10:23 Upset Home Medications ?Medication ?Instructions ?Recorded ?Confirmed ?Last Taken ?Type clonazepam 0.5 mg tablet 1 mg PO DAILY 02/15/23 04/23/24 Unknown History sertraline 100 mg tablet 200 mg PO DAILY 04/23/24 04/23/24 Unknown History Exam Height,Weight and Vital Signs: Height 5 ft 9 in Weight 83.461 kg Assessment and Plan Assessment Anesthesia Assessment: Chart Reviewed Documented by User: Asher Alexandra MD 04/25/24 08:45 [facility] Past Medical History Medical History (Updated 04/23/24 @ 11:47 by Candy Barrientos RN) Hiatal hernia Elevated PSA Anxiety Hyperlipidemia Obstructive sleep apnea on CPAP Asthma NICOLE (obstructive sleep apnea) Asthmatic bronchitis BPH (benign prostatic hyperplasia) Microscopic hematuria Urethral stricture Family History Family History Father HTN (hypertension) Mother No problems noted. Brother No problems noted. Sister No problems noted. Son No problems noted. Daughter No problems noted. Family history of problems with anesthesia: No Surgical History Surgical History (Updated 04/23/24 @ 11:47 by Candy Barrientos RN) Hx of arthroscopy of left knee History of esophagogastroduodenoscopy (EGD) H/O colonoscopy History of tonsillectomy History of appendectomy History of Problems with Anesthesia: No Social History Social History Housing: House Alcohol intake: current Alcohol intake frequency: a few times a week Patient Tobacco Use Status: Former Tobacco user Years Smoked: 20 years e-Cigarette/Vaping Use: Never Used Second Hand Smoke Exposure: No Advance Directives: No Advance Directives Information Provided: Yes service: No Current occupational status: employed Current occupation: [employer] Current occupational exposures/hazards: No Cognitive needs: No Hearing needs: No Vision needs: No Meds Allergies Allergy/AdvReac Type Severity Reaction Status Date / Time erythromycin base Allergy Unknown Gastrointestinal Verified 01/19/24 10:23 [ERYTHROMYCIN BASE] Upset penicillin V Allergy Unknown Gastrointestinal Verified 01/19/24 10:23 Upset Penicillins [PENICILLINS] Allergy Unknown Gastrointestinal Verified 01/19/24 10:23 Upset Home Medications ?Medication ?Instructions ?Recorded ?Confirmed ?Last Taken ?Type clonazepam 0.5 mg tablet 1 mg PO DAILY 02/15/23 04/23/24 Unknown History sertraline 100 mg tablet 200 mg PO DAILY 04/23/24 04/23/24 Unknown History Exam Airway Mallampati Class: III TM Dist: >3cm Neck ROM: Full Assessment and Plan Assessment Anesthesia Assessment: Anesthesia Plan Discussed Final Anesthetic Review Family History of Problems with Anesthesia: No History of Problems with Anesthesia: No NPO: Yes ASA Class: III Final Preanesthetic Review: No Changes in Pt Med Stat, Meds/Allgs Chart Re viewed, Consent Obtained/Reviewed and Anes Risks/Benef Reviewed Patient Risk: Intermediate Procedure Risk: Low Anesthetic Plan Anesthetic Plan: TIVA Disposition: Standard PACU
[2024-04-25 08:53] VITALS: BP 156/78; PULSE 56; RESP 16; TEMP 36.4; O2SAT 98
[2024-04-25] MEDS: Lactated Ringers 1,000 ML 100 ML IVCONT (09:03)
[2024-04-25 10:10] VITALS: BP 104/60; PULSE 50; RESP 16; TEMP 36.3; O2SAT 100
--- NOTE | 2024-04-25 10:10 | PM.OP ---
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 Ileocecal valve ulceration) Condition: stable Disposition: PACU
[2024-04-25 10:25] VITALS: BP 140/75; PULSE 47; RESP 16; TEMP 36.2; O2SAT 97
--- NOTE | 2024-04-25 11:25 | OP_ITS ---
DATE OF SERVICE: 04/25/2024 SURGEON: Rehan Gaviria MD INDICATIONS: The patient presents for evaluation of colorectal cancer screening and family history of colon cancer. Full consent has been obtained from him for this, including risks of bleeding and perforation. PREOPERATIVE DIAGNOSIS: POSTOPERATIVE DIAGNOSIS: PROCEDURE PERFORMED: Colonoscopy to the cecum with biopsies. ESTIMATED BLOOD LOSS: COMPLICATIONS: ANESTHESIA: Monitored anesthesia care. ASSISTANTS: SPECIMENS: PREOPERATIVE DIAGNOSES: Colorectal cancer screening and family history of colon cancer. POSTOPERATIVE DIAGNOSES: Colorectal cancer screening, family history of colon cancer, area of ulceration on ileocecal valve, diverticulosis, and internal hemorrhoids. DESCRIPTION OF PROCEDURE: The patient was placed in the left decubitus position. The digital rectal exam revealed no abnormalities. The Olympus video pediatric colonoscope was then entered into the rectum and advanced easily to the cecum. Once in the cecum, I did identify a normal-appearing cecal pouch. The entire cecum was well visualized and appeared normal. The ileocecal valve was well visualized. On a portion of the valve seen from the ascending colon, was an approximately 1 cm area of some ulceration, friability, and some firmness when biopsies were taken. The great majority of the ileocecal valve appeared normal. The scope was slowly withdrawn assessing all mucosal surfaces carefully. Preparation was excellent. I did not visualize any polyps, colitis, nor angiodysplasias. There was a mild amount of sigmoid diverticulosis. In the rectum, scope was retroflexed, visualizing internal hemorrhoids, but no other pathology. The rectal mucosa appeared normal. The scope was straightened and withdrawn from the patient. He tolerated the procedure well and was returned to the recovery area in stable condition. IMPRESSION: 1. Area of ulceration on ileocecal valve, status post biopsy. 2. Diverticulosis. 3. Internal hemorrhoids. PLAN: The results of the biopsies will be checked. If the biopsies are negative for any adenomatous or worrisome changes, then would recommend a repeat colonoscopy in 5 years for followup given the family history of colon cancer. He was advised not to use any aspirin and NSAIDs for at least 1 week. He was advised to continue to have his iron studies monitored. I did advise him to donate blood as a regular blood donor every 2 to 3 months. MD DOM Torres/PARKER / [id number]
--- NOTE | 2024-04-26 06:40 | PC.NURSE ---
24hr update documented on paper chart
== END 2024-04-25 10:51 | disposition home or self-care (01) ==
PROVIDERS: PCP Nurse Practitioner Family; Visit Provider Internal Medicine
PROC: 0DJD8ZZ Inspection of Lower Intestinal Tract, Via Natural or Artificial Opening Endoscopic (ICD-10-PCS; CPT 45378; principal; 2024-04-25 09:30)
DX: Z12.11 Encounter for screening for malignant neoplasm of colon (principal); K63.3 Ulcer of intestine; D3A.8 Other benign neuroendocrine tumors; K57.30 Diverticulosis of large intestine without perforation or abscess without bleeding; K64.8 Other hemorrhoids; Z80.0 Family history of malignant neoplasm of digestive organs; I10 Essential (primary) hypertension; Z79.899 Other long term (current) drug therapy
CPT/HCPCS: 45380; 88305; 88341; 88342; 88360; J2704

== ENCOUNTER 2024-06-12 08:53 | Outpatient (AMB) | payer MEDICARE, SELFPAY ==
--- NOTE | 2024-06-12 08:56 | MHC.PC.OV ---
Vital Signs 06/12/24 08:59 Height 5 ft 9 in Weight 182 lb BMI 26.9 BP 122/80 Blood Pressure Location Rt brachial Position Sitting Pulse 66 Pulse Source Pulse Oximeter Pulse Oximetry (%) 98 Oxygen Delivery Method Room Air Intake Visit Reasons: Annual PE Intake Note: Patient is here for physical exam. pt would like to talk about new Dx of colon cancer and will be having surgery on 06/20. Colon: 2023 due in 5yrs Allergies erythromycin base [ERYTHROMYCIN BASE] Allergy (Unknown, Verified 06/12/24 09:27) Gastrointestinal Upset penicillin V Allergy (Unknown, Verified 06/12/24 09:27) Gastrointestinal Upset Penicillins [PENICILLINS] Allergy (Unknown, Verified 06/12/24 09:27) Gastrointestinal Upset Medication List - Last Reconciled 06/12/24 by LEN Hicks clonazepam 1 mg PO DAILY fluticasone propion-salmeterol 500-50 mcg/dose (Advair Diskus) 1 inh inhalation BID lisinopril 10 mg PO DAILY 90 days pantoprazole 40 mg PO DAILY 90 days rosuvastatin 20 mg PO DAILY sertraline 200 mg PO DAILY Tobacco use date assessed: 12/14/23 Fall risk assessment: No Falls in past year Last assessed Fall Risk: 06/12/24 Dental Screening Dental Screen Date: 12/14/23 HPI Annual PE HPI Details Pt is here for a PE. Will order labs. Colon screen is up to date, recent diagnosis of colon cancer, see notes. PSA is up to date. [facility] Medical History (Updated 06/12/24 @ 09:28 by LEN Hicks) Colon carcinoma Hiatal hernia Elevated PSA Anxiety Hyperlipidemia Obstructive sleep apnea on CPAP Asthma NICOLE (obstructive sleep apnea) Asthmatic bronchitis BPH (benign prostatic hyperplasia) Microscopic hematuria Urethral stricture Surgical History Hx of arthroscopy of left knee History of esophagogastroduodenoscopy (EGD) H/O colonoscopy History of tonsillectomy History of appendectomy Family History (Updated 06/12/24 @ 09:29 by LEN Hicks) Father HTN (hypertension) Mother No problems noted. Brother Colon cancer Sister No problems noted. Son No problems noted. Daughter No problems noted. Social History Housing: House Alcohol intake: current Alcohol intake frequency: a few times a week Patient Tobacco Use Status: Former Tobacco user Years Smoked: 20 years e-Cigarette/Vaping Use: Never Used Second Hand Smoke Exposure: No service: No Current occupational status: employed Current occupation: [employer] Current occupational exposures/hazards: No Cognitive needs: No Hearing needs: No Vision needs: No Questionnaire PHQ-9 Over the last 2 weeks, how often have you been bothered by any of the following problems? 1. Little interest or pleasure in doing things: not at all 2. Feeling down, depressed, or hopeless: not at all 3. Trouble falling or staying asleep, or sleeping too much: not at all 4. Feeling tired or having little energy: not at all 5. Poor appetite or overeating: not at all 6. Feeling bad about yourself - or that you are a failure or have let yourself or your family down: not at all 7. Trouble concentrating on things, such as reading the newspaper or watching television: not at all 8. Moving or speaking so slowly that other people could have noticed. Or the opposite - being so fidgety or restless that you have been moving around a lot more than usual: not at all 9. Thoughts that you would be better off or of hurting yourself in some way: not at all Total score: 0 Depression Screening Interpretation: Negative Depression Screening Done: Yes 41941 - PHQ-9 Billing: Yes Source: Developed by Drs. Rehan De La Cruz, Dayana Iglesias, Mendez Leigh and colleagues, with an educational reji from [employer]. Thrive Questionnaire Date Thrive assessed: 06/05/24 I am a: Patient What is your living situation today?: I have a steady place to live Within the past 12 months, did the food you bought not last and you didn't have the money to get more?: Never true Within the past 12 months, did you worry whether your food would run out before you got money to buy more?: Never true Do you have trouble paying for medicines?: No Do you have trouble getting transportation to medical appointments?: No Do you have trouble paying your heating and electricity bill?: No Do you have trouble taking care of your child, family member or friend?: No Do you have trouble with day-to-day activities such as bathing, preparing meals, shopping, managing finances, etc.?: No Are you currently unemployed and looking for a job?: No Are you interested in more education?: No Please select the resources that you would like help with: Housing/Skilled Nursing Currently or been in a relationship where the following occur: No concerns reported THRIVE Score: 0 AUDIT C Alcohol Use Questionnaire (AUDIT-C) 1. How often do you have a drink containing alcohol?: 2-3 times a week 2. How many drinks containing alcohol do you have on a typical day when you are drinking?: 3 or 4 3. How often do you have six or more drinks on one occasion?: Never Total Score: 4 Score Reviewed/Action Taken: Yes JAMILAH-7 AMB Questionnaire JAMILAH-7 Date JAMILAH - 7 assessed: 03/24/23 Feeling nervous, anxious, or on edge: 0 = Not at all Not being able to stop or control worryin = Not at all Worrying too much about different things: 0 = Not at all Trouble relaxin = Not at all Being so restless that it is hard to sit still: 0 = Not at all Becoming easily annoyed or irritable: 0 = Not at all Feeling afraid as if something awful might happen: 0 = Not at all Total JAMILAH-7 score (0-4 normal; 5-9 mild; 10-14 moderate; 15-21 severe): 0 Source: Developed by Drs. Rehan De La Cruz, Dayana Iglesias, Mendez Leigh and colleagues, with an educational reji from [employer]. JAMILAH-7 Assessment Billing JAMILAH-7 Assessment Tool: JAMIALH-7 Assessment 96536 Review of Systems Const Denies chills and Denies fever(s) Eyes Denies blurry vision ENT Denies vertigo, Denies dizziness and Denies sore throat Card Denies chest pain at rest, Denies chest pain with activity, Denies diaphoresis, Denies dyspnea and Denies dyspnea on exertion Resp Denies cough, Denies dyspnea, Denies dyspnea on exertion and Denies wheezing GI Denies abdominal pain, Denies melena, Denies hematochezia, Denies constipation, Denies diarrhea and Denies loose stools Denies hematuria Musc Denies numbness and Denies tingling Skin/Breast Denies lesions Neuro Denies vertigo, Denies dizziness, Denies numbness and Denies tingling Psych Denies anxiety, Denies depression, Denies homicidal ideation, Denies suicidal ideation and Denies other (substance abuse) Aller/Immun Denies wheezing Physical exam (Primary Care) Vital Signs: Last Vital Signs Pulse 66 06/12/24 08:59 BP 122/80 06/12/24 08:59 Pulse Ox 98 06/12/24 08:59 Oxygen Delivery Method Room Air 06/12/24 08:59 BMI result Body Mass Index 26.9 Tobacco/Smoking Status: Tobacco use Status Tobacco use date assessed 12/14/23 06/12/24 08:57 Patient Tobacco Use Status Former Tobacco user 06/12/24 08:57 e-Cigarette/Vaping Use Never Used 06/12/24 08:57 PHQ-9: PHQ-9 Score PHQ-9: Total score 0 06/12/24 09:28 Depression Screening Interpretation: Negative Thrive Assessment: Date of Thrive Assessment Date Thrive assessed 06/05/24 06/12/24 08:57 Currently or been in a relationship where the following occur: No concerns reported Const General: cooperative Nutritional Appearance: well nourished Orientation/consciousness: patient oriented x3 HENMT Head: Yes normal to inspection, Yes normocephalic and Yes atraumatic Ears: TM's normal bilaterally Eyes General: appearance normal, both eyes and all related structures Alignment and Position: alignment normal and position normal Neck Neck: Yes normal visual inspection and Yes no lymphadenopathy Thyroid: Thyroid normal Resp Effort & Inspection: normal respiratory effort Auscultation: clear to auscultation bilaterally Cardio Rate: regular rate Rhythm: regular rhythm Heart sounds: S1 normal heart sound present, S2 normal heart sound present and no murmurs GI Palpation (GI): Soft to palpation and nontender Auscultation: normal bowel sounds Male General Exam: Yes normal external exam Penis: normal penis Scrotum: scrotum normal, testes descended bilaterally and no inguinal hernias Testes: no testicular mass Skin Rashes: no rashes Neuro General: patient oriented x3, moves all extremities, no focal motor deficits and deep tendon reflexes 2+ bilaterally Romberg Test: Negative Psych Appearance: grossly normal Mental Status: mental status grossly normal Speech and movement: Normal speech and movement present Affect: normal affect Attitude: cooperative Thought process: Normal thought process present Thought content: Normal thought content present Insight: Good insight present (Psych) Judgement: Good judgement present (Psych) Assessment and Plan Assessment & Plan (1) Encounter for routine adult physical exam with abnormal findings: Code(s): Z00. - Encounter for general adult medical examination with abnormal findings Plan: Labs ordered, pt following up with GI for colon carcinoma Plan The patient agreed to the use of a adjunct faculty for medical terminology for this encounter. Scribed for LEN Cagle by Marcy Lewis adjunct faculty for medical terminology, on 06/12/2024 at 09:15 EST. Orders: Orders Complete Blood Count Auto Diff Today Z00. - Encounter for general adult medical examination with abnormal findings Comprehensive [place]. Panel Fast Today Z00.01 - Encounter for general adult medical examination with abnormal findings UA CC w/rflx Micro + Cult Today Z00.01 - Encounter for general adult medical examination with abnormal findings TSH reflex Free T4 Today Z00.01 - Encounter for general adult medical examination with abnormal findings Lipid Panel Today Z00.01 - Encounter for general adult medical examination with abnormal findings Coding Level of Care Code Est Pt Prev Care >65y(74935) Diagnoses Encounter for routine adult physical exam with abnormal findings Z00. Additional Codes JAMILAH-7 Assessment Billing - JAMILAH-7 Assessment Tool: JAMILAH-7 Assessment [id number] ([id number])
[2024-06-12 08:59] VITALS: BP 122/80; PULSE 66; O2SAT 98; BMI 26.9
== END 2024-06-12 09:29 | disposition home or self-care (01) ==
PROVIDERS: PCP Nurse Practitioner Family; Visit Provider Nurse Practitioner Family
DX: Z00.00 Encounter for general adult medical examination without abnormal findings (principal)
CPT/HCPCS: 99397

== ENCOUNTER 2024-07-11 08:10 | Outpatient (REF) | payer MEDICARE, SELFPAY ==
[2024-07-11 10:09] LABS: MANUAL DIFF FLAG NO
[2024-07-11 10:18] LABS: Basophils Percent Auto 0.4 % (0-2); Eosinophils Absolute Auto 0.1 X10*3/uL (0.0-0.4); Eosinophils Percent Auto 1.9 % (0-4); Hemoglobin 13.5 g/dl (14.0-18.0); Imm Gran Abs Auto 0.03 X10*3/uL (0.00-0.03); Imm Gran Pct Auto 0.4 % (0.0-0.4); Lymphocytes Absolute Auto 2.2 X10*3/uL (1.2-4.9); Lymphocytes Percent Auto 29.7 % (20-40); Mean Corpuscular HGB Conc 32.9 g/dl (31.0-36.0); Mean Corpuscular Hemoglobin 29.5 pg (27.0-33.0); Mean Corpuscular Volume 89.5 fL (80.0-98.0); Mean Platelet Volume 9.6 fL (9.4-12.4); Monocytes Absolute Auto 0.6 X10*3/uL (0.1-1.2); Monocytes Percent Auto 8.2 % (2-11); Neutrophils Absolute Auto 4.4 x10*3/uL (2.0-8.3); Neutrophils Percent Auto 59.4 % (45-73); Platelet Count 345 X10*3/uL (160-400); Red Blood Count 4.58 X10*6/uL (4.60-5.80); White Blood Count 7.4 X10*3/uL (4.8-10.8)
[2024-07-11 10:24] LABS: Appearance Urine Clear; Color Urine Yellow; Glucose Urine UA Negative (Negative); Leukocyte Esterase Urine Negative (Negative); Nitrite Urine Negative (Negative); PH 5.5 (5.0-9.0); Specific Gravity - Urine 1.025 (1.005-1.025); UMIC TRIGGER UACC YES; Urine Blood Small (1+) (Negative); Urine Ketones Negative (Negative); Urine Protein Negative (Neg-Trace)
[2024-07-11 10:35] LABS: Bacteria Urine None Seen (None Seen); Hyaline Casts Urine 0-2 /LPF (0-2); RBC Urine 0-2 /HPF (0-2); Squamous Epithelial Cell Urine 0-2 /HPF (0-2); WBC Urine 0-5 /HPF (0-5)
[2024-07-11 10:53] LABS: Alanine Aminotransferase 23 U/L (0-40); Albumin Level 4.3 g/dL (3.5-5.0); Alkaline Phosphatase 64 U/L (39-117); Anion Gap 10 (12-20); Aspartate Amino Transferase 18 U/L (5-37); Bilirubin Total 0.5 mg/dL (0.0-1.0); Blood Urea Nitrogen 26 mg/dL (9-16); Calcium 9.4 mg/dL (8.4-10.2); Carbon Dioxide 29 mmol/L (22-29); Chloride 106 mmol/L (96-108); Cholesterol 133 mg/dL (<200); Estimated Glomerular Filt Rate > 60; Glucose Fasting 99 mg/dL (60-99); HDL Cholesterol 44 mg/dL (>40); LDL Cholesterol Calculated 70 mg/dL (<100); Potassium 4.3 mmol/L (3.3-5.1); Sodium 141 mmol/L (135-145); TSH reflex Free T4 1.32 uIU/mL (0.32-4.0); Total Protein 7.2 g/dL (6.5-8.0); Triglycerides 96 mg/dL (<150)
== END 2024-07-11 08:11 | disposition home or self-care (01) ==
LOC: HO.HMGCLDS 08:10
PROVIDERS: PCP Nurse Practitioner Family; Visit Provider Nurse Practitioner Family
DX: Z00.01 Encounter for general adult medical examination with abnormal findings (principal)
CPT/HCPCS: 36415; 80053; 80061; 81001; 84443; 85025

== ENCOUNTER 2025-01-04 07:53 | Outpatient (REF) | payer MEDICARE, SELFPAY ==
--- OUTSIDE RECORDS SUMMARY | 2025-01-04 07:57 | XMS_ITS ---
Author Name [facility] Organization Unknown History of Medication Use Medication Directions Dispensed Refills Start Date End Date [facility] lidocaine (PF) 10 mg/mL (1 %) injection solution Take 5 mL by injection route. 09/13/2023 3 completed rosuvastatin 20 mg tablet active albuterol sulfate HFA 90 mcg/actuation aerosol inhaler active methylprednisolone 4 mg tablets in a dose pack TAKE 6 TABLETS ON DAY 1 DIRECTED ON PACKAGE AND DECREASE BY 1 TAB EACH DAY FOR A TOTAL OF 6 DAYS active rosuvastatin 20 mg tablet TAKE 1 TABLET BY MOUTH EVERY DAY active Laxative (bisacodyl) 5 mg tablet,delayed release TAKE 2 TABLETS BY MOUTH AT 2 PM DAY BEFORE SURGERY DIRECTED active Advair Diskus 500 mcg-50 mcg/dose powder for inhalation active sertraline 100 mg tablet active albuterol sulfate HFA 90 mcg/actuation aerosol inhaler INHALE 2 PUFFS EVERY 4 HOURS NEEDED FOR WHEEZE OR FOR SHORTNESS OF BREATH 3 completed Advair Diskus 500 mcg-50 mcg/dose powder for inhalation active oxycodone 5 mg tablet TAKE 1 TABLET (5 MG TOTAL) BY MOUTH EVERY 4 HOURS NEEDED 3 completed acetaminophen 325 mg tablet TAKE 2 TABLETS BY MOUTH EVERY 6 HOURS NEEDED FOR PAIN 3 active clonazepam 1 mg tablet TAKE 2 TABLETS BY MOUTH DAILY AT BEDTIME active clobetasol 0.05 % topical cream APPLY TOPICALLY TO RASH TWICE DAILY FOR 1 TO 2 WEEKS active meloxicam 15 mg tablet Take 1 tablet every day by oral route as needed for 14 days. 10/18/2024 active ciprofloxacin 500 mg tablet active oxycodone 5 mg tablet TAKE 1 TABLET BY MOUTH EVERY 6 HOURS NEEDED FOR PAIN active clobetasol 0.05 % topical cream APPLY TOPICALLY TO RASH TWICE DAILY FOR 1 TO 2 WEEKS 3 active acetaminophen 325 mg tablet TAKE 2 TABLETS BY MOUTH EVERY 6 HOURS NEEDED FOR PAIN active clonazepam 0.5 mg tablet TAKE 1 TABLET BY MOUTH AT BEDTIME AND 1/2 TABLET NEEDED FOR ACTING OUT DREAMS 3 active lisinopril 10 mg tablet TAKE 1 TABLET BY MOUTH EVERY DAY active clonazepam 0.25 mg disintegrating tablet 3 active Problems Problem Status Onset Date Problem Type Date of Resoluti on Source Pain of right shoulder region active 2024-10-19 ProblemAct [facility] Prepatellar bursitis of right knee active 2023-09-15 ProblemAct [facility] Pain of left shoulder joint active 2024-10-18 ProblemAct [facility] Chondrocalcinosis due to pyrophosphate crystals active 2023-10-21 ProblemAct ENS_A ONECT
--- OUTSIDE RECORDS SUMMARY | 2025-01-04 07:57 | XMS_ITS | Encounter Summary ---
Author Organization [email or web address] Address [address] [place] [address] Care Team Providers Care Groundwater Monitoring Technician Name Role Phone Kaden Boston NP Primary Care Provider + [phone] Reason for Referral * Imaging (Routine) - Pending Review Specialty Diagnoses / Procedures Referred By Ion hart Referred To Contact Radiology Diagnoses Pain Procedures MR Shoulder wo Contrast Right Eulogio Chavez MD [address] [place] [address] Phone: tel: fax: [facility] Referral ID Status Reason Start Date Expiration Date V isits Requested Visits Authorized [id number] Pending Review 12/31/2024 12/31/2025 1 1 Reason for Visit * Imaging (Routine) - Pending Review Specialty Diagnoses / Procedures Referred By Ion hart Referred To Contact Radiology Diagnoses Pain Procedures MR Shoulder wo Contrast Right uElogio Chavez MD [address] [place] [address] Phone: tel: fax: [facility] Referral ID Status Reason Start Date Expiration Date V isits Requested Visits Authorized [id number] Pending Review 12/31/2024 12/31/2025 1 1 Encounter Details Date Type Department Care Team (Latest Contact Info) Description 01/02/2025 5:00 PM EST - 01/02/2025 11:59 PM EST Hospital Encounter [facility] MRI [address] [place] [address] Pain Discharge Disposition: Home or Self Care Social History Tobacco Use Types Packs/Day Years Used Date Smoking Tobacco: Former Smokeless Tobacco: Never Alcohol Use Standard Drinks/Week Comments Yes 0 (1 standard drink = 0.6 oz pur e alcohol) Sex and Gender Information Value Date Recorded Sex Assigned at Not on file Legal Sex Male 5:50 PM EST Gender Identity Not on file Sexual Orientation Not on file documented as of this encounter Discharge Disposition Disposition Code Departure Means Destination Home or Self Care documented in this encounter Plan of Treatment Not on file documented as of this encounter Procedures Procedure Name Priority Date/Time Associated Diagnosis Comments MR SHOULDER WO CONTRAST RIGHT Routine 01/02/2025 5:37 PM EST Pain documented in this encounter Results * MR Shoulder wo Contrast Right (01/02/2025 5:37 PM EST) Anatomical Region Laterality Modality Upper Extremities, Shoulder Right Magn etic Resonance 01/03/2025 4:50 PM EST Impressions 01/03/2025 4:59 PM EST 1. ??Severe tendinopathy of the supraspinatus with extension to involve the conjoined supraspinatus and infraspinatus fibers. ??There is mild bursal surface fraying of the mid supraspinatus and a small intrasubstance tear of the infraspinatus near the musculotendinous junction. 2. ??Insertional tendinopathy and partial tearing of the subscapularis, with partial subluxation of the long biceps tendon from the bicipital groove. ??Severe tendinopathy of the long biceps tendon with a short segment longitudinal split tear. 3. ??Irregular tear of the posterior inferior labrum with a multilobulated paralabral cyst. -------- FINAL REPORT -------- Dictated By: Marshall Renae Dictated Date: 01/03/2025 16:50 ET Assigned Physician: Marshall Renae Reviewed and Electronically Signed By: Marshall Renae Signed Date: 01/03/2025 16:59 ET Workstation ID: [id number] Transcribed By: Self Edit Transcribed Date: 01/03/2025 16:50 ET Narrative 01/03/2025 4:59 PM EST PROCEDURE: MRI of the right shoulder without intravenous contrast. HISTORY: Right shoulder pain. COMPARISON: None. TECHNIQUE: Multiplanar multisequence MRI of the right shoulder without intravenous contrast administration. FINDINGS: Rotator cuff: Normal muscle bulk. ??Prominent diffuse tendinopathy of the supraspinatus, with mild fraying of the mid bursal surface fibers. ??The tendinopathy extends to involve the conjoined supraspinatus and infraspinatus fibers. ??There is a small intrasubstance tear of the infraspinatus near the musculotendinous junction. ??Insertional tendinopathy and partial-thickness insertional tear of the subscapularis, with partial subluxation of the long biceps tendon from the bicipital groove. Tendons: Partial subluxation of the long biceps tendon from the bicipital groove. ??Severe tendinopathy of the long biceps tendon, with a small longitudinal split tear of its extra-articular segment. Labrum: Irregular tear of the posterior inferior labrum with an adjacent multilobulated paralabral cyst. Glenohumeral joint: Minimal cartilage thinning. ??No joint effusion. Acromioclavicular joint: Mild degenerative change. ??Type I acromion. ??Lateral downsloping of the acromion. ??No significant subacromial impingement. Ligaments: The glenohumeral ligaments appear normal. Other: Trace fluid in the subacromial/subdeltoid bursa. Procedure Note Marshall Renae MD - 01/03/2025 PROCEDURE: MRI of the right shoulder without intravenous contrast. HISTORY: Right shoulder pain. COMPARISON: None. TECHNIQUE: Multiplanar multisequence MRI of the right shoulder withoutintravenous contrast administration. FINDINGS: Rotator cuff: Normal muscle bulk. Prominent diffuse tendinopathy of thesupraspinatus, with mild fraying of the mid bursal surface fibers. Thetendinopathy extends to involve the conjoined supraspinatus andinfraspinatus fibers. There is a small intrasubstance tear of theinfraspinatus near the musculotendinous junction. Insertionaltendinopathy and partial-thickness insertional tear of the subscapularis,with partial subluxation of the long biceps tendon from the bicipitalgroove. Tendons: Partial subluxation of the long biceps tendon from the bicipitalgroove. Severe tendinopathy of the long biceps tendon, with a smalllongitudinal split tear of its extra-articular segment. Labrum: Irregular tear of the posterior inferior labrum with an adjacentmultilobulated paralabral cyst. Glenohumeral joint: Minimal cartilage thinning. No joint effusion. Acromioclavicular joint: Mild degenerative change. Type I acromion.Lateral downsloping of the acromion. No significant subacromialimpingement. Ligaments: The glenohumeral ligaments appear normal. Other: Trace fluid in the subacromial/subdeltoid bursa. IMPRESSION: 1. Severe tendinopathy of the supraspinatus with extension to involve theconjoined supraspinatus and infraspinatus fibers. There is mild bursalsurface fraying of the mid supraspinatus and a small intrasubstance tearof the infraspinatus near the musculotendinous junction. 2. Insertional tendinopathy and partial tearing of the subscapularis,with partial subluxation of the long biceps tendon from the bicipitalgroove. Severe tendinopathy of the long biceps tendon with a shortsegment longitudinal split tear. 3. Irregular tear of the posterior inferior labrum with a multilobulatedparalabral cyst. -------- FINAL REPORT -------- Dictated By: Marshall Renae Dictated Date: 01/03/2025 16:50 ET Assigned Physician: Marshall Renae Reviewed and Electronically Signed By: Marshall Renae Signed Date: 01/03/2025 16:59 ET Workstation ID: [id number] Transcribed By: Self Edit Transcribed Date: 01/03/2025 16:50 ET Eulogio Chavez MD IMG MRI PROCEDURES Final Resu lt documented in this encounter Visit Diagnoses Diagnosis Pain Generalized pain documented in this encounter Care Teams Groundwater Monitoring Technician Relationship Specialty Start Date End Date Kaden Boston NP [address] [facility] [place] PCP - General Family Medicine 12/16/20 documented as of this encounter
--- OUTSIDE RECORDS SUMMARY | 2025-01-04 07:57 | XMS_ITS ---
Author Organization [facility] Address [address] [place] [phone] Care Team Providers Care Sheet Sorter Name Role Phone JENS HERNÁNDEZ Primary Care Provider Rehan Lund [phone] ALLERGIES Allergen (clinical drug ingredient) Drug/Non Drug Allergy documented on EMR Reaction Allergy Type Onset Date Status penicillamine Penicillamine Unknown Drug Allergy Active erythromycin Erythromycin Unknown Drug Allergy A ctive REASON FOR VISIT Patient presents today for a neuroendocrine tumor, colon MEDICATIONS Medication SIG (Take, Route, Frequency, Duration) Notes Start Date End Date Status Protonix 40 MG 1 tablet Orally Once a day Active Rosuvastatin Calcium 20 MG 1 tablet Oral ly Once a day for 30 day(s) Active clonazePAM 1 MG 1 tablet Orally Once a day Active Zoloft 100 MG 2 tablet Orally Once a day Active Lisinopril 10 MG 1 tablet Orally Once a day Active SOCIAL HISTORY Tobacco Use: Social History Observation Description Date Details (start date - stop date) Former Smoker NA - NA Sex Assigned At : Social History Observation Description Sex Assigned At Unknown Tobacco Use/Smoking Question Answer Notes Patient is a former smoker How long has it been since you last smoked? > 10 years Alcohol Screen Question Answer Notes Did you have a drink contain ing alcohol in the past year? Yes How many drinks did you have on a typical day when you were drinking in the past year? 3 or 4 drinks (1 point) How often did you have 6 or more drinks on one occasion in the past year? Weekly (3 points) Points 4 Interpretation Positive PROBLEMS Problem Type ICD Code Onset Dates Problem Status W/U Status Risk SNOMED Code Notes Problem Other malignant neuroendocrine tumors (C7A.8) Active confirmed Malignant neuroendocrine tumor ([id number]) VITAL SIGNS BMI 26.93 kg/m2 05/01/2024 Blood pressure systolic 000 mm Hg 05/01/20 24 Blood pressure diastolic 00 mm Hg 024 Height 69 in 05/01/2024 Temperature 97.5 degrees Fahrenheit 05/01/20 24 Weight 182 lb 6 oz lbs 05/01/2024 Encounters Encounter Location Date Provider Diagnosis [facility] [address] [place] [address] 05/01/2024 Rehan Gaviria Other malignant neuroendocrine tumors C7A.8 ASSESSMENTS Encounter Date Diagnosis Assessment Notes Treatment Notes Treatment Clinical Notes 05/01/2024 Other malignant neuroendocrine tumors (ICD-10 - C7A.8) Let me know when the appointment at [facility] is going to be. PLAN OF TREATMENT Treatment Notes Assessment Notes Other malignant neuroendocrine tumors Le t me know when the appointment at [facility] is going to be. Next Appt Details Follow Up: prn, Reason: Progress Notes * Examination Category Sub-Category Detail Notes General Examination GENERAL APPEARANCE: pleasant , well nourished, well developed, in no acute distress HEAD: EYES: sclera non-icteric EARS: NOSE: THROAT: NECK/THYROID: no cervical lymphade nopathy, neck supple HEART: S1, S2 normal CHEST: LUNGS: clear to auscultatio n bilaterally ABDOMEN: normal bowel sounds, no guarding or rigidity, no guarding or rigidity, no masses palpable, soft, nontender, nondistended NEUROLOGIC: alert and oriented SKIN: nonjaundiced, no spi amador angiomata EXTREMITIES: no edema PERIPHERAL PULSES: BACK: BREASTS: MUSCULOSKELETAL: MALE GENITOURINARY: LYMPH NODES: RECTAL EXAM: FEMALE GENITOURINARY: ORAL CAVITY: mucosa moist
--- OUTSIDE RECORDS SUMMARY | 2025-01-04 07:57 | XMS_ITS ---
Author Organization [facility] Address [address] [place] [phone] Care Team Providers Care Bank Runner Name Role Phone JENS HERNÁNDEZ Primary Care Provider Rehan Lund [phone] REASON FOR VISIT Call patient's 05/04/24 Encounters Encounter Location Date Provider Diagnosis [facility] [address] [place] [phone] 05/03/2024 Rehan Gaviria PLAN OF TREATMENT No Information
--- OUTSIDE RECORDS SUMMARY | 2025-01-04 07:57 | XMS_ITS ---
Author Organization [facility] Address [address] [place] [phone] Care Team Providers Care Scheduler Conveyor Name Role Phone JENS HERNÁNDEZ Primary Care Provider Rehan Lund [phone] REASON FOR VISIT Need path report Encounters Encounter Location Date Provider Diagnosis [facility] [address] [place] [address] 09/05/2024 Rehan Gaviria PLAN OF TREATMENT No Information
--- OUTSIDE RECORDS SUMMARY | 2025-01-04 07:57 | XMS_ITS | Clinical Summary ---
Author Organization [facility] Address [address] [place] [id number] Care Team Providers Care Automotive Buyer Name Role Phone Kaden Boston Primary Care Provider [phone] Allergies Active Allergy Reactions Criticality Noted Date Comments Erythromycin Other (See Comments) High 11/12/2019 Levofloxacin 01/06/2021 Penicillins Other (See Comments) High 11/12/2019 Medications Medication Sig Dispensed Refills Start Date End Date Status lisinopril (PRINIVIL,ZESTRIL) tablet 10 mg TAKE 1 T BY MOUTH DAILY 2 04/19/2018 Active pantoprazole (PROTONIX) 40 MG tablet TK 1 T PO ONCE A DAY GEF PROTONIX 3 03/27/2018 Active sertraline (ZOLOFT) 100 MG tablet TAKE 2 TS BY MOUTH DAILY 2 04/19/2018 Active simvastatin (ZOCOR) tablet 20 mg TAKE 1 T BY MOUTH IN THE EVENING ONCE A DAY 2 04/09/2018 Active prazosin (MINIPRESS) 1 MG capsule Take 1 mg by mouth every night at bedtime. 0 11/18/2020 Active rosuvastatin (CRESTOR) tablet 20 mg Take 20 mg by mouth daily. 0 11/18/2020 Active doxycycline (VIBRA-TABS) 100 MG tablet Take 100 mg by mouth 2 (two) times a day. 0 05/07/2021 Active predniSONE (DELTASONE) tablet 20 mg 0 05/07/2021 Active meloxicam (MOBIC) 15 MG tablet Take 1 tablet daily for 7 days following surgery, beginning the night of surgery 7 tablet 0 12/07/2021 Active gabapentin (Neurontin) 300 MG capsule Take 300mg for 3 days at bedtime. Please start 1 night prior to surgery 3 capsule 0 12/07/2021 Active oxyCODONE (ROXICODONE) 5 MG immediate release tablet Take 1 tablet (5 mg total) by mouth every 6 (six) hours as needed for pain. Do not take until after surgery 25 tablet 0 12/07/2021 Active promethazine (PHENERGAN) 12.5 MG tablet Take 1 tablet (12.5 mg total) by mouth every 8 (eight) hours as needed for nausea. Use after surgery as needed 4 tablet 0 12/07/2021 Active albuterol 108 (90 Base) MCG/ACT inhaler 0 10/22/2022 Active fluticasone-salmeter ol (Advair Diskus) 500-50 MCG/ACT AEPB 0 12/09/2022 Activ e lisinopril (PRINIVIL,ZESTRIL) tablet 5 mg Daily 0 Active Active Problems Problem Noted Date Diagnosed Date S/P left rotator cuff repair 04/19/2022 Impingement syndrome of left shoulder 01/06/2021 Subacromial bursitis of left shoulder joint 12/16 Impingement syndrome of right shoulder 8 Family History Medical History Relation Name Comments Heart disease Mother Relation Name Status Comments Mother Social History Tobacco Use Types Packs/Day Years Used Date Smoking Tobacco: Former Smokeless Tobacco: Never Alcohol Use Standard Drinks/Week Comments Yes 0 (1 standard drink = 0.6 oz pur e alcohol) Sex and Gender Information Value Date Recorded Sex Assigned at Not on file Gender Identity Not on file Sexual Orientation Not on file Job Start Date Occupation Industry Not on file Not on file Not on file Last Filed Vital Signs Vital Sign Reading Time Taken Comments Blood Pressure - - Pulse - - Temperature - - Respiratory Rate - - Oxygen Saturation - - Inhaled Oxygen Concentration - - Weight 84.4 kg (186 lb) 04/19/2022 8:50 AM EDT Height 175.3 cm (5' 9 ) 04/19/2022 8:50 AM EDT Body Mass Index 27.47 04/19/2022 8:50 AM EDT Plan of Treatment Health Maintenance Due Date Last Done Comments Hepatitis C Screening 1960 COVID-19 Vaccine (#1) 1958 Depression Screening 1970 BMI Counseling 1976 Preventative Health Evaluation 1976 DTap / Tdap / Td (1 - Tdap) 1977 Colon Cancer Screening (Colonoscopy) 2003 Shingrix-Zoster Vaccine (1 of 2) 2008 Fall Risk Assessment 2023 Pneumococcal Vaccine (1 of 1 - PCV) 2023 Influenza Vaccine (#1) 2024 RSV Adult > 60+ Yrs or Pregn ant (1 - 1-dose 75+ series) 2033 Hepatitis B Vaccines Aged Out No long er eligible based on patient's age to complete this topic RSV Ped < 20 months Aged Out No longe r eligible based on patient's age to complete this topic Care Teams Automotive Buyer Relationship Specialty Start Date End Date Kaden Boston [address] [facility] [place] [address] PCP - General Family Medicine 12/16/20
--- OUTSIDE RECORDS SUMMARY | 2025-01-04 07:57 | XMS_ITS | Continuity of Care Document ---
Author Organization [facility] [place] Address [address] [place] [address] Care Team Providers Care Trackwalker Name Role Phone JENS HERNÁNDEZ Primary Care Provider JENS HERNÁNDEZ Referring Provider [phone] Assessment Encounter Date Assessment Date Assessment LastModified by Organization Details LastModified Time 12/24/2024 12/24/2024 I went over my findings with him and his . His right shoulder pain remains persistent and consistent. I have concerns about a rotator cuff tear. He has now completed a course of physical therapy. I am not sure what else I have to offer until we have additional information with an MRI. I placed an order for an MRI once again. Hopefully at this point things will be approved through his insurance. He is going to continue his self-directed home exercise program. He will let symptoms be his guide with regards to activity. Questions invited and answered. Greater than 20 minutes was spent with the encounter today, including face to face time with the patient, documentation, review of records/imaging if applicable, and coordination of care. PRIOR: Acute on chronic right shoulder pain. Unclear etiology to his persistent symptoms. Cannot exclude a small rotator cuff tear. At this point he would like to move forward with an MRI, order placed. I did give him a formal prescription for physical therapy for him to start as well. He will let symptoms be his guide with regards to activity. Down the line may consider a cortisone injection depending on what the MRI shows. PRIOR THEODORA: 64-year-old male with acute on chronic right shoulder pain less than 24 hours status post fall. He has very well-preserved strength today. His range of motion is quite reasonable, most painful with abduction. Low suspicion for high-grade rotator cuff tear. More than likely his symptoms flared up from acute aggravation. I reviewed my findings with him and we discussed treatment options. I will send him in a short course of meloxicam. GI precautions reviewed. Icing protocol reviewed. Gentle range of motion exercises were demonstrated and encouraged today. He will follow-up in 2 weeks for recheck, sooner if his condition worsens. PRIOR 06/2023: Patient's history and physical exam are very reassuring today. There is no evidence of acute injury or complication with the shoulders. He can continue activity as tolerated. He is happy with reassurance today. Advised should his symptoms worsen or progress he can present to the office for follow-up evaluation at which time physical therapy and/or injections can be discussed as appropriate. Icing protocol reviewed. Okay to use anti-inflammator ies and Tylenol with appropriate [id number] dosing and GI precautions. Questions invited & answered. Patient and his verbalize understanding and agreement with plan. Not available 12/24/2024 10:42:15 Plan of Treatment Reminders Order Date Submit Date Provider Last Modified By Organization Details Last Modified Time Details Appointments RESULTS 2024 09:00A M Eulogio Chavez MD Not available Not available Not available Lab None recorded. Referral None recorded. Procedures None recorded. Surgeries None recorded. Imaging MRI, shoulder, w/o contrast 2024 025 [facility], [address], [place], [address], 01/03/2025 17:46:53 Medication Orders None recorded. Patient TargetsNo targets recorded. Patient Instructions Encounter Date Encounter Id Patient Instructions Last Modified By Organization Details Last Modified Time 12/24/2024 [id number] views of the right shoulder were obtained 10/18/24 in the [place] office. Welled maintain joint space. Acromiohumeral interval intact. No obvious soft tissue calcification. Type II acromion. No acute fracture or dislocation appreciated. Mild degenerative changes Interpreted by: Kendrick Hrat PA-C 3 views of each of the bilateral shoulders were obtained 06/27/2023 in the [place] office. Joint spaces well-maintained. Moderate degenerative changes of the AC joint bilaterally. No acute fractures or dislocations. Marginal spurring at the inferior aspect of the right glenoid. There is evidence of rotator cuff repair and acromioplasty of the left. No acute complications appreciated. Findings: Well-maintained joint spaces. No acute fracture. Interpreted by: Kendrick Hart PA-C Not available 12/24/2024 08:19:14 Reason for Referral None Reported. Results Created Date Observation Date Name Description Value Unit Range Abnormal Flag Note LastModifiedBy Organization Detail LastModifiedTime 01/03/2001/02/2025 MRI, shoul amador, w/o contr ast No observ ation record ed. [facility] [address] [place], [address], 01/03/2025 17:46:53 Result Notes None recorded. 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 2022 LIOR VELASCO PA-C [address], [place], [address], [place] [facility] 13:08:25 Pain of right shoulder joint 5315453812456 9100 Active [address], [place], [address], [place] [facility] 09:40:11 Pain of left shoulder joint 8713010701048 9109 Active 2023 KENDRICK HART PA-C [address], [place], [address], [place] [facility] 4 09:40:11 Pain of right shoulder region Active 2023 KENDRICK HART PA-C [address], [place], [address], [place] [facility] 08:33:39 Problem Notes None recorded. Procedures Surgical History Date Name Laterality Status Provider Name and Address Organization Details Recorded Time 09/13/20 23 Knee Joint/Bursa Asp & Inj completed LIOR VELASCO PA-C [address], [place], [address], [place] [facility] 09/15/2023 08:15:22 repair of musculotendinous cuff of shoulder completed [facility] [place] [facility] 06/27/2023 14:15:30 Imaging Results None recorded. Procedure Notes None recorded. Medical Equipment None Reported. Medications Name Sig Start Date Stop Date Status Note LastModified by Organization Details LastModified Time acetaminoph en 325 mg tablet TAKE 2 TABLETS BY MOUTH EVERY 6 HOURS NEEDED FOR PAIN 09/28 completed Not Available Not Available Not Available prednisone 10 mg tablet TAKE 3 TABLETS BY MOUTH EVERY DAY FOR 4 DAYS THEN TAKE 2 TABLETS BY MOUTH EVERY DAY FOR 4 DAYS THEN TAKE 1 TABLET BY MOUTH EVERY DAY FOR 4 DAYS active Not Available Not Available No t Available meloxicam 15 mg tablet TAKE 1 TABLET BY MOUTH EVERY DAY NEEDED FOR 14 DAYS 2024 active Not Available Not Available Not Avai lable bupivacaine HCl 0.5 % (5 mg/mL) injection solution Take 5 mL by injection route. 09/28 completed Not Available Not Available Not Available clonazepam 0.5 mg tablet TAKE 1 TABLET BY MOUTH AT BEDTIME AND 1/2 TABLET NEEDED FOR ACTING OUT DREAMS 09/28 completed Not Available Not Available Not Available sertraline 100 mg tablet TAKE 2 TABLETS BY MOUTH EVERY DAY active Not Available Not Available No t Available clonazepam 1 mg tablet TAKE 1 TABLET BY MOUTH EVERYDAY AT BEDTIME active Not Available Not Available No t Available clobetasol 0.05 % topical cream APPLY TOPICALLY TO RASH TWICE DAILY FOR 1 TO 2 WEEKS 09/28 completed Not Available Not Available Not Available metronidazo le 500 mg tablet TAKE 1 TABLET BY MOUTH AT 5 PM & 1 TABLET AT 10 PM DAY BEFORE SURGERY active Not Available Not Available No t Available ciprofloxac in 500 mg tablet active Not Available Not Available Not Available pantoprazol e 40 mg tablet,dom yed release TAKE 1 TABLET BY MOUTH EVERY DAY active Not Available Not Available No t Available lisinopril 10 mg tablet TAKE 1 TABLET BY MOUTH EVERY DAY active Not Available Not Available No t Available Advair Diskus 500 mcg-50 mcg/dose powder for inhalation active Not Available Not Available N ot Available ibuprofen 600 mg tablet TAKE 1 TABLET BY MOUTH EVERY 6 HOURS FOR 14 DAYS ALTERNATE EVERY 6 HOURS WITH TYLENOL 09/28 completed Not Available Not Available Not Available methylpredn isolone 4 mg tablets in a dose pack TAKE 6 TABLETS ON DAY 1 DIRECTED ON PACKAGE AND DECREASE BY 1 TAB EACH DAY FOR A TOTAL OF 6 DAYS active Not Available Not Available No t Available neomycin 500 mg tablet TAKE 2 TABLETS AT 5PM AND 2 TABLETS AT 10 PM THE DAY BEFORE SURGERY. active Not Available Not Available No t Available albuterol sulfate HFA 90 mcg/actuati on aerosol inhaler INHALE 2 PUFFS EVERY 4 HOURS NEEDED FOR WHEEZE OR FOR SHORTNESS OF BREATH 09/28 completed Not Available Not Available Not Available oxycodone 5 mg tablet TAKE 1 TABLET (5 MG TOTAL) BY MOUTH EVERY 4 HOURS NEEDED 09/28 completed Not Available Not Available Not Available Laxative (bisacodyl) 5 mg tablet,dom yed release TAKE 2 TABLETS BY MOUTH AT 2 PM DAY BEFORE SURGERY DIRECTED active Not Available Not Available No t Available enoxaparin 40 mg/0.4 mL subcutaneou s syringe active Not Available Not Available No t Available clonazepam 0.25 mg disintegrat ing tablet 09/28 completed Not Available Not Available Not Available rosuvastati n 20 mg tablet TAKE 1 TABLET BY MOUTH EVERY DAY active Not Available Not Available No t Available lidocaine (PF) 10 mg/mL (1 %) injection solution Take 5 mL by injection route. 09/28 completed Not Available Not Available Not Available Vitals Date Recorded Body height Body mass index (BMI) Body weight Provider Name and Address Organization Details Last Updated DateTime 12/24/2024 177.8 cm 25.5 kg/m2 42890.[address] [place] [facility] 12/24/2024 10:17:50 Social History Question Answer Notes LastModified by Organizat ion Details LastModified Time Tobacco Smoking Status Never Smoker Nadya Ramon gord[place], [place] [facility] [place] 06/27/2023 14:15:56 What Is Your Level Of Alcohol Consumption? None Information not available 06/27/2023 Do You Use Any Illicit Or Recreational Drugs? No Information not available 06/27/2023 Do You Or Have You Ever Used Any Other Forms Of Tobacco Or Nicotine? No Information not available 06/27/2023 Sex: Unknown Functional Status None recorded. Mental Status None recorded. Family History Relationship Description Onset Age of this Age Resolved Age Notes LastModified by Organization Details LastModified Time Mother Hypertensive disorder Not available 2022 14:14:57 Medical History Condition Response Anxiety Disorder Y Reflux/GERD Y Hypertension Y Past Encounters Encounter ID Performer Location Encounter Start Date Encounter Closed Date Diagnosis/Indication Diagnosis SNOMED-CT Code Diagnosis ICD10 Code Diagnosis Note [id number] Eulogio Chavez MD [address] [address] 12/24/2024 09:47:09 12/24/2024 10:45:38 Pain of right shoulder joint [id number] M25.511 History of fall 49364162 9 Z91.81 Health Concerns Section Related Observation LastModified by Organization Detai ls LastModified Time None Recorded Concern Status LastModified by Organization Details LastModified Time None Recorded Payers Encounter Date Sequence Insurance Name Policy Number Policy Melton Covered Member ID Melton Member ID Guarantor Name 12/24/2024 1 [id number]ANTAGE - [place]PO) [id number] Faraz Bailey [id number] Faraz Bailey Notes Date Note Type Note Provider Name and Address Organization Details Recorded Time 12/24/2024 text/html Patient returns along with his for reevaluation of his right shoulder. He reports no interval change in his symptoms despite attending therapy twice a week for 4 to 6 weeks. At rest he reports his pain is a 0/10. With certain movements he has pain over the anterolateral shoulder rated as a 6 to a 7 on a 10 point scale. He denies any new injuries. PRIOR:Patient returns for reevaluation of his right shoulder. He tells me that his right shoulder symptoms started about a year ago. They were then aggravated about a month ago after he fell and landed on the right shoulder. He thinks the recent fall finished it off . The shoulder has not improved at all since his last visit. At rest he rates his pain as a 0/10, but with any movement he has pain. In particular abduction past 30 degrees is quite uncomfortable. Sleeping is difficult. He has not started formal physical therapy. He continues a home exercise program. He tells me he is irritated with the whole situation regarding ordering an MRI. He does not understand that if we have diagnostic tools available to us why we would not just go ahead and order and obtain an MRI. PRIOR THEODORA:64-year-old male with history of left shoulder rotator cuff repair presents to the office today for evaluation of his right side. He has had chronic intermittent right shoulder pain for over a year. His symptoms were under decent control until yesterday when he was walking in the [place] and [place]. He thinks he struck his elbow on the ground and it aggravated the shoulder. Denies dislocation. He was concerned about a rotator cuff tear as it is painful to move. He has not tried any treatment.PRIOR 06/2023:Patient presented to the office today with his complaining of random onset, intermittent right shoulder pain for approximately 1 year. He reports this happens about once or twice per month. He states the pain is usually on the front and side of his shoulder, sometimes around the biceps and describes it as mild, dull aching that is fleeting, not requiring any treatment. No trauma or injury recalled. He has no pain at rest and minimal limitations to any daily activity or sports/exercise. He denies feelings of instability. He denies any numbness, tingling or loss of sensation. He denies nighttime pain. No neck pain.Of note he did have a left rotator cuff repair in 2021. Recovered well he was concerned that the same thing may have happened on the right side. 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 Never smoker. Denies EtOH, illicit or recreational drug use. Reported medical history includes high blood pressure and GERD. Euloigo Chavez MD [address], [place], [address], [place] [facility] 12/24/2024 11:53:07
--- OUTSIDE RECORDS SUMMARY | 2025-01-04 07:57 | XMS_ITS | Data Portability ---
Author Organization [place] [facility] [place] Address [address] [place] [address] Care Team Providers Care Refractory Mixer Name Role Phone JENS HERNÁNDEZ Primary Care Provider JENS HERNÁNDEZ Referring Provider Assessment Encounter Date Assessment Date Assessment LastModified by Organization Details LastModified Time 09/13/2023 09/13/2023 63-year-old male with right knee mass consistent with prepatellar traumatic bursitis. I had a discussion with the patient regarding management. He opted for aspiration which was carried out with a 20 cc yield of serosanguineous fluid. The site was then bandaged with a sterile dressing, Kerlix, Dionicio wrap and Coban. Aftercare instructions were discussed in detail he should rest ice elevate. He can take the compression bandage off within the next 24 to 48 hours I do want to see him back within 2 weeks. Patient understands this may return for which I would have him see one of our surgeons the patient is in agreement with the above-noted plan. Patient was seen and evaluated by Lior Eastman PA-C in indirect conjuction with Documenting Provider: Kavin Leal MD . He/She agrees with history, physical examination, tests/diagnostic imaging, and treatment plan. Additional treatment plan discussed with the patient (only initiated if in boldface font) otherwise not applicable. Treatment may include the following; - Provider focused nonsteroidal anti-inflammatory regimen (discussed were the pros, cons, benefits and risks as well as any black box warnings) in patients over 60 years old they should be very cautious in taking these medications due to potential decreased kidney function and or elevated blood pressure. - Analgesic pain medication for pain suppression (discussed were the pros, cons, benefits and risks as well as any black box warnings) - The use of topical pain relieving medication were discussed - The use of ice to decrease inflammation and pain - The use of assistive ambulatory devices for ambulation and fall prevention - Formal specific guided physical therapy program I reviewed my findings at length with the patient today. ? ? ?We discussed the nature and etiology of this problem along with current treatment options. We discussed the expected course and outcomes and what to expect. We also discussed risks and benefits. ? ? ? All of their questions were answered today, and there was exhibited understanding and comprehension of all that was discussed. Time Spent: 10 minutes were spent reviewing previous imaging and charting. ? ? ?10 minutes were spent obtaining patient history. ? ? ?5 minutes were spent on physical exam. ? ? ?5? ? ?minutes were spent explaining diagnosis and assessment. Today's documentation was made using voice recognition software. This note may contain grammatical errors secondary to the software. 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 This was aspirated on 09/13/2023. It was explained to the patient and his that this had a high probability of returning for which he has. I discussed treatment options which included aspiration at today's visit however high probability of return. I also discussed referring him to interventional radiology at [facility] for ultrasound-guided drainage. He is amenable to the latter. We will arrange this and he will follow-up shortly after the procedure. If this returns I will have him see Dr. Chavez if possible. If his insurance does not allow him to see Dr. Chavez in [place] I will have him see Dr. Leal. I explained to his that an MRI would not have a higher yield regarding his current problem. She states that she feels that he has a meniscus tear . We will not exclude an MRI however at this point it is not indicated. Patient was seen and evaluated by Lior Eastman PA-C in indirect conjuction with Documenting Provider: Kavin Leal MD . He/She agrees with history, physical examination, tests/diagnostic imaging, and treatment plan. Additional treatment plan discussed with the patient (only initiated if in boldface font) otherwise not applicable. Treatment may include the following; - Provider focused nonsteroidal anti-inflammatory regimen (discussed were the pros, cons, benefits and risks as well as any black box warnings) in patients over 60 years old they should be very cautious in taking these medications due to potential decreased kidney function and or elevated blood pressure. - Analgesic pain medication for pain suppression (discussed were the pros, cons, benefits and risks as well as any black box warnings) - The use of topical pain relieving medication were discussed - The use of ice to decrease inflammation and pain - The use of assistive ambulatory devices for ambulation and fall prevention - Formal specific guided physical therapy program I reviewed my findings at length with the patient today. ? ? ?We discussed the nature and etiology of this problem along with current treatment options. We discussed the expected course and outcomes and what to expect. We also discussed risks and benefits. ? ? ? All of their questions were answered today, and there was exhibited understanding and comprehension of all that was discussed. Time Spent: 10 minutes were spent reviewing previous imaging and charting. ? ? ?10 minutes were spent obtaining patient history. ? ? ?5 minutes were spent on physical exam. ? ? ?5? ? ?minutes were spent explaining diagnosis and assessment. Today's documentation was made using voice recognition software. This note may contain grammatical errors secondary to the software. Not available 10/03/2023 06:49:10 10/18/2024 10/18/2024 64-year-old male with acute on chronic right [...] for recheck, sooner if his condition worsens. Questions invited and answered. Patient verbalizes understanding and agreement with plan. PRIOR 06/2023: Patient's history and physical exam [...] appropriate. Icing protocol reviewed. Okay to use anti-inflammatorie s and Tylenol with appropriate copp-ype-ptxvlif dosing and GI precautions. Questions invited & answered. Patient and his verbalize understanding and agreement with plan. Not available 10/18/2024 09:59:29 11/06/2024 11/06/2024 Acute on chronic right shoulder pain. Unclear [...] injection depending on what the MRI shows. Questions invited and answered. Greater than 20 minutes was spent with the encounter today, including face to face time with the patient, documentation, review of records/imaging if applicable, and coordination of care. PRIOR THEODORA: 64-year-old male with acute on [...] appropriate. Icing protocol reviewed. Okay to use anti-inflammatorie s and Tylenol with appropriate rlxi-ujp-gxyrkuu dosing and GI precautions. Questions invited & answered. Patient and his verbalize understanding and agreement with plan. Not available 11/06/2024 11:14:40 12/24/2024 12/24/2024 I went over my findings [...] appropriate. Icing protocol reviewed. Okay to use anti-inflammatorie s and Tylenol with appropriate zack-ifj-jmwekyi dosing and GI precautions. Questions invited & answered. Patient and his verbalize understanding and agreement with plan. Not available 12/24/2024 10:42:15 Plan of Treatment Reminders Order Date Submit Date Provider Last Modified By Organization Details Last Modified Time Details Appointments RESULTS 2024 09:00A M Eulogio Chavez MD Not available Not available Not available Lab None recorde d. Referral interve ntional radiolo gist referra l - Ultraso und guided aspirat ion of right prepate llar bursa, sent for fluid analysi s.Patie nt was drained on 023 with return of prepate llar bursiti s.Gram- Stain, Culture , Crystal s, Lyme [email or web address] Interventional Radiology Scheduling, [address] [place], [address], 10/11/2023 13:07:24 Procedures None recorde d. Surgeries None recorde d. Imaging MRI, shoulde r, w/o contras t 2024 025 [facility], [address] [place], [address], 01/03/2025 17:46:53 MRI, shoulde r, w/o contras t 2023 024 [email or web address] Not available 11/16/2024 10:07:43 XR, shoulde r, 2 or more view 2023 024 [email or web address] [facility], [address], [address], [place], [address], 10/18/2024 09:19:33 XR, knee, 4 or more view 2022 023 [email or web address] [facility], [address], [address], [place], [address], 09/14/2023 07:57:27 Medication Orders meloxic am 15 mg tablet 2023 025 [id number], [address] [facility], [place], [address], 12/26/2024 11:55:35 lidocai ne (PF) 10 mg/mL (1 %) injecti on solutio n 2022 023 Not available 11/06/2024 09:29:59 bupivac sean HCl 0.5 % (5 mg/mL) injecti on solutio n 2022 023 [email or web address] Not available 11/06/2024 09:30:00 Patient TargetsNo targets recorded. Patient Instructions Encounter Date Encounter Id Patient Instructions Last Modified By Organization Details Last Modified Time 09/13/2023 [id number] X-ray of the rig ht knee reveals well-maintained joint space in all 3 compartments. There is notable soft tissue edema best visualized on lateral and sunrise view when compared to the left knee. No acute bony abnormality Not available 09/15/2023 08:18:02 10/18/2024 [id number] 3 views of the right shoulder were obtained today 10/18/24 in the [place] office. Welled maintain joint space. Acromiohumeral interval intact. No obvious soft tissue calcification. Type II acromion. No acute fracture or dislocation appreciated. Mild degenerative changes Interpreted by: Kendrick Hart PA-C Not available 10/18/2024 10:00:03 11/06/2024 [id number] 3 views of the right shoulder were obtained 10/18/24 in the [place] office. Welled maintain joint space. Acromiohumeral interval intact. No obvious soft tissue calcification. Type II acromion. No acute fracture or dislocation appreciated. Mild degenerative changes Interpreted by: Kendrick Hart PA-C 3 views of each of the bilateral shoulders were obtained 06/27/2023 in the [place] office. Joint spaces well-maintained. Moderate degenerative changes of the AC joint bilaterally. No acute fractures or dislocations. Marginal spurring at the inferior aspect of the right glenoid. There is evidence of rotator cuff repair and acromioplasty of the left. No acute complications appreciated. Findings: Well-maintained joint spaces. No acute fracture. Interpreted by: Kendrick Hart PA-C Not available 11/06/2024 06:51:36 12/24/2024 [id number] views of the right shoulder were obtained 10/18/24 in the [place] office. Welled maintain joint space. Acromiohumeral interval intact. No obvious soft tissue calcification. Type II acromion. No acute fracture or dislocation appreciated. Mild degenerative changes Interpreted by: Kendrick Hart PA-C 3 views of each of the bilateral shoulders were obtained 06/27/2023 in the [place] office. Joint spaces well-maintained. Moderate degenerative changes of the AC joint bilaterally. No acute fractures or dislocations. Marginal spurring at the inferior aspect of the right glenoid. There is evidence of rotator cuff repair and acromioplasty of the left. No acute complications appreciated. Findings: Well-maintained joint spaces. No acute fracture. Interpreted by: Kendrick Hart PA-C [email or web address] Not available 12/24/2024 08:19:14 Reason for Referral Interventional Radiologist Jonnie bacon for Prepatellar bursitis of right knee Ultrasound guided aspiration of right prepatellar bursa, sent for fluid analysis.Patient was drained on 09/13/2023 with return of prepatellar bursitis.Gram-Stain, Culture, Crystals, Lyme Referring Physician: Lior Eastman, Orthopedic Surgery, Encounter Date: 09/29/2023 Results Created Date Observation Date Name Description Value Unit Range Abnormal Flag Note LastModifiedBy Organization Detail LastModifiedTime 10/12/20 23 imagi ng/di agnos tic resul t No observ ation record ed. [email or web address] Not Available 10/12 11:34:21 01/03/20 25 01/02/2025 MRI, juan amador, w/o contr ast No observ ation record ed. [facility] [address] [facility], [place], [address], 01/03/2025 17:46:53 Result Notes None recorded. 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 016238187 Active 2022 LIOR EASTMAN PA-C [address], [place], [address], [place] [facility], P 3 13:08:25 Pain of right shoulder joint 9323802910688 9100 Active 2023 KENDRICK HART PA-C [address], [place], [address], [place] [facility], P 4 09:40:11 Pain of left shoulder joint 4517155073776 9109 Active 2023 KENDRICK HART PA-C [address], [place], [address], [place] [facility], P 4 09:40:11 Pain of right shoulder region Active 2023 KENDRICK HART PA-C [address], [place], [address], [place] [facility], P 4 08:33:39 Problem Notes None recorded. Procedures Surgical History Date Name Laterality Status Provider Name and Address Organization Details Recorded Time 09/13/20 23 Knee Joint/Bursa Asp & Inj completed LIOR EASTMAN PA-C [address], [place], [address], [place] [facility], P 09/15/2023 08:15:22 repair of musculotendinous cuff of shoulder completed Nadya Ramon [place] [facility], P 06/27/2023 14:15:30 Imaging Results Imaging Date Name Status LastModified by Lisa judge Details LastModified Time 10/12/2023 imaging/diagn ostic result completed [email or web address] Information not available 10/12/2023 11:34:21 01/02/2025 MRI, shoulder, w/o contrast completed [facility] [address] [facility], [place], [address], 01/03/2025 17:46:53 Procedure Notes None recorded. Medical Equipment None [...] and Address Organization Details Last Updated DateTime 11/06/2024 177.8 cm 25.7 kg/m2 [address]48[address] [facility], P 11/06/2024 09:30:08 Date Recorded Body height Body mass index (BMI) Body weight Provider Name and Address Organization Details Last Updated DateTime 12/24/2024 177.8 cm 25.5 kg/m2 [address] [facility] P 12/24/2024 10:17:50 Date Recorded Body height Provider Name an d Address Organization Details Last Updated DateTime 09/13/[address] [place] [facility], P 09/13/2023 14:59:00 Social History Question Answer Notes LastModified by Organizat ion Details LastModified Time Tobacco Smoking Status Never Smoker Nadya Ramon null, [place] [facility] 06/27/2023 14:15:56 What Is Your Level Of [...] SNOMED-CT Code Diagnosis ICD10 Code Diagnosis Note [id number] MD VANDA Abebe[address] [address] 06/27/2023 13:34:51 06/27/2023 14:12:40 Pain of right shoulder joint 5875963757 8854947 M25.511 Pain of le ft shoulder joint 3124477985 7234635 M25.512 [id number] MD VANDA Causey [address] [address] 09/13/2023 14:29:31 09/13/2023 15:30:29 Pain of right knee joint 8706787281 35708 M25.561 Effusion o f joint of right knee 9257086483 57704 M25.461 Prepatella r bursitis of right knee 5931205743 57123 M70.41 [id number] MD VANDA Causeyeric [address] [address] 09/29/2023 15:20:13 09/29/2023 15:55:52 Prepatellar bursitis of right knee 3911735388 08638 M70.41 [id number] [facility] [address] [place] [address] 10/18/2024 08:32:20 10/18/2024 09:19:33 Pain of right shoulder region 6167184203 M25.511 Pain of ri ght shoulder joint 2873686463 1008682 M25.511 History of fall 10237039 9 Z91.81 [id number] Eulogio Chavez MD [address] [address] 11/06/2024 09:18:20 11/06/2024 10:00:54 Pain of right shoulder joint 6973487289 0762974 M25.511 History of fall 88559305 9 Z91.81 [id number] Eulogio Chavez MD [address] [address] 12/24/2024 09:47:09 12/24/2024 10:45:38 Pain of right shoulder joint 1270085019 8359292 M25.511 History of fall 51548197 9 Z91.81 Health Concerns Section Related Observation LastModified by Organization Detai ls LastModified Time None Recorded Concern Status LastModified by Organization Details LastModified Time None Recorded Advance Directives Directive None Recorded Payers Encounter Date Sequence Insurance Name Policy Number Policy Melton Covered Member ID Melton Member ID Guarantor Name 09/13/2023 1 [place] [id number] Faraz Bailey [id number] Faraz Bailey 09/29/2023 1 [place] [id number] Faraz Bailey [id number] Faraz Bailey 10/18/2024 1 [place] [id number] Faraz Bailey [id number] Faraz Bailey 11/06/2024 1 [place] [id number] Faraz Bailey [id number] Faraz Bailey 12/24/2024 1 [place] [id number] Faraz Bailey [id number] Faraz Bailey Notes Date Note Type Note Provider Name and Address Organization Details Recorded Time 09/13/2023 text/html Pleasant 63-year -old male chief complaint right bump overlying the kneecap onset of symptoms began approximately a month ago. He states he was doing tile work on his bare knees for which then he had noticed the growth of a large bump the size of a racquetball. He states he is not in any significant pain except for when he kneels on it. He denies any history of gout, rheumatoid arthritis or Lyme disease. He denies any fevers or chills denies any warmth overlying the right knee here for evaluation and treatment. LIOR EASTMAN PA-C [address] [facility] [address], [place], [address], [place] [facility] 09/15/2023 08:18:32 09/29/2023 text/html Assessment & Geoffrey n: Previous visit on [id number] male with right knee mass consistent with prepatellar traumatic bursitis. I had a discussion with the patient regarding management. He opted for aspiration which was carried out with a 20 cc yield of serosanguineous fluid. The site was then bandaged with a sterile dressing, Kerlix, Dionicio wrap and Coban. Aftercare instructions were discussed in detail he should rest ice elevate. He can take the compression bandage off within the next 24 to 48 hours I do want to see him back within 2 weeks.Patient understands this may return for which I would have him see one of our surgeons the patient is in agreement with the above-noted plan. HPI:Patient returns with his complaints of return of right traumatic prepatellar bursitis. 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 He is yet to obtain a knee pad however he does not state he has not been kneeling but his intervened during the conversation and stated he has not been on his knees. He is here for other treatment options. His who is a retired nurse is requesting an MRI of his knee because she feels that he has a meniscus tear causing the bursitis. LIOR EASTMAN PA-C [address] [facility] [address], [place], [address], [place] [facility] P 10/11/2023 10:34:41 10/18/2024 text/html 64-year-old male with history of left shoulder rotator [...] to move. He has not tried any treatment. PRIOR 06/2023:Patient presented to the office today with [...] sensation. He denies nighttime pain. No neck pain. Of note he did have a left rotator cuff repair in 2021. Recovered well he was concerned that the same thing may have happened on the right side. He states approximately 6 months ago he was moving a large water tank and felt a random twinge of pain in the left shoulder but this has otherwise not been bothersome. 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 Never smoker. Denies EtOH, illicit or recreational drug use. Reported medical history includes high blood pressure and GERD. KENDRICK HART PA-C [address], [place], [address], [place] [facility] P 10/18/2024 10:00:41 11/06/2024 text/html Patient returns for reevaluation of his right shoulder. 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 Never smoker. Denies EtOH, illicit or recreational drug use. Reported medical history includes high blood pressure and GERD. 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 Never smoker. Denies EtOH, illicit or recreational drug use. Reported medical history includes high blood pressure and GERD. Eulogio Chavez MD [address], [place], [address], [place] [facility] P 12/24/2024 11:53:07
--- OUTSIDE RECORDS SUMMARY | 2025-01-04 07:57 | XMS_ITS | Clinical Summary ---
Author Organization [facility] Address [address] [place] [address] Phone Care Team Providers Care Linux Devops Engineer Name Role Phone Kaden Boston NP Primary Care Provider [phone] Encounters Date Type Department Care Team Description 01/02/2025 5:00 PM EST - 01/02/2025 11:59 PM EST Hospital Encounter [facility] MRI [address] [place] [phone] Pain Discharge Disposition: Home or Self Care from Last 3 Months Medical History Medical History Date Comments Hypertension DX:Hypertension Anxiety DX:Anxiety Family History Medical History Relation Name Comments [...] on file Sexual Orientation Not on file Obstetrics History Last Filed Vital Signs Vital Sign Reading [...] Health Maintenance Due Date Last Done Comments COVID-19 Vaccine (#1) 1963 Zoster Vaccines (1 of 2) 1977 Abdominal Aortic Aneurysm (AAA) Screen 10/16/2022 Cholesterol Screening (Lipid Panel) 10/16/2022 Colorectal Cancer Screening: Colonoscopy 10/16/2022 Depression Screening 10/16/2022 Hepatitis C Screening 10/16/2022 Social Influencers of Health Screening 10/16/2022 Falls Risk Assessment 2023 Influenza Vaccine (#1) 2024 Hypertension/CHF/CAD Annual BMP Blood Test 05/16/2025 05/16/2024 DTaP,Tdap,and Td Vaccines (3 - Td or Tdap) 08/15/2031 08/15/2021, 11/14/2013 RSV Immunization Patients 60 + Years Old (1 - 1-dose 75+ series) 2033 Pneumococcal Vaccine: 50+ Years Completed 03/24/2023 HIB Vaccines Aged Out No longer eligi ble based on patient's age to complete this topic HPV Vaccines Aged Out No longer eligi ble based on patient's age to complete this topic Hepatitis A Vaccines Aged Out No long er eligible based on patient's age to complete this topic Hepatitis B Vaccines Aged Out No long er eligible based on patient's age to complete this topic IPV Vaccines Aged Out No longer eligi ble based on patient's age to complete this topic MMR Vaccines Aged Out No longer eligi ble based on patient's age to complete this topic Meningococcal ACWY Vaccine Aged Out N o longer eligible based on patient's age to complete this topic Meningococcal B Vacine Aged Out No lo nger eligible based on patient's age to complete this topic RSV Immunization Patients Under 20 months Aged Out No longer eligible b ased on patient's age to complete this topic Varicella Vaccines Aged Out No longer eligible based on patient's age to complete this topic Procedures Procedure Name Priority Date/Time Associated Diagnosis Comments MR SHOULDER WO CONTRAST RIGHT Routine 01/02/2025 5:37 PM EST Pain from Last 3 Months Results * MR Shoulder wo Contrast Right [...] Signed Date: 01/03/2025 16:59 ET Workstation ID: [id number] Transcribed By: Self Edit Transcribed Date: 01/03/2025 [...] Signed Date: 01/03/2025 16:59 ET Workstation ID: [id number] Transcribed By: Self Edit Transcribed Date: 01/03/2025 16:50 ET Eulogio Chavez MD IMG MRI PROCEDURES Final Resu lt from Last 3 Months Care Teams Linux Devops Engineer Relationship Specialty Start Date End Date Kaden Boston NP [address] [place], [place] PCP - General Family Medicine 12/16/20
--- OUTSIDE RECORDS SUMMARY | 2025-01-04 07:57 | XMS_ITS | Patient Health Record ---
Author Organization [facility] Address [address] [place] [address] Care Team Providers Care Data Analytics Architect Name Role Phone JENS HERNÁNDEZ Primary Care Provider Rehan Lund [phone] ALLERGIES Allergen (clinical drug ingredient) Drug/Non Drug Allergy documented on EMR Reaction Allergy Type Onset Date Status penicillamine Penicillamine Unknown Drug Allergy Active erythromycin Erythromycin Unknown Drug Allergy A ctive RESULTS Component Value Reference Range Notes Pathology Reviewed date:05/07/2024 10:31:16 PM Interpretation: Performing Lab:[facility], [address] [place] [phone] Notes/Report: REASON FOR REFERRAL No Information MEDICATIONS Medication SIG (Take, Route, Frequency, Duration) [...] 1 tablet Orally Once a day Active IMMUNIZATIONS Vaccine Route Administration Date Status Comme nts Influenza Unknown 11/15/2018 Refused Influenza Unknown 01/18/2024 Refused SOCIAL HISTORY Tobacco Use: Social History Observation [...] W/U Status Risk SNOMED Code Notes Problem Gastroesophageal reflux disease without esophagitis (K21.9) Active confirmed 720024423 Problem Esophageal dysphagia (R13.10) Active confirmed 95203897 Problem Encounter for screening for malignant neoplasm of colon (Z12.11) Active confirmed 693379900 Problem Family history of colon cancer (Z80.0) Active confirmed 235074235 Problem Elevated ferritin (R79.89) Active confirmed Serum ferritin high (665875965) Problem Other malignant neuroendocrine tumors (C7A.8) Active confirmed Malignant neuroendocrine tumor (600780263724023 ) Problem Diverticulosis of large intestine without perforation or abscess without bleeding (K57.30) Active confirmed Diverticul ar disease of colon (407636308) VITAL SIGNS Temperature 97.5 degrees Fahrenheit 05/01/2024 Blood pressure diastolic 00 mm Hg 05/01/2024 Height 69 in 05/01/2024 Blood pressure systolic 000 mm Hg 05/01/2024 Weight 182 lb 6 oz lbs 05/01/2024 BMI 26.93 kg/m2 05/01/2024 Encounters Encounter Location Date Provider Diagnosis [facility] [address] [place] [phone] 04/23/2024 Rehan Gaviria [facility] [address] [place], [place] [phone] 04/25/2024 Rehan Gaviria Encounter for screen ing colonoscopy Z12.11 ; Family history of colon cancer Z80.0 ; Ulcer of intestine K63.3 ; Diverticulosis of large intestine without perforation or abscess without bleeding K57.30 and Internal hemorrhoids K64.8 [facility] [address] [place] [phone] 01/18/2024 Rehan Gaviria Gastroesophageal ref lux disease without esophagitis K21.9 ; Family history of colon cancer Z80.0 ; Encounter for screening for malignant neoplasm of colon Z12.11 and Elevated ferritin R79.89 [facility] [address] [place] [address] 05/01/2024 Rehan Gaviria Other malignant neuroendocrine tumors C7A.8 [facility] [address] [place] [address] [place] [address] 01/19/2024 Rehan Khadra Test [place] [address] 04/27/2024 Rehan Gaviria [facility] [address] [place] [phone] 05/03/2024 Rehan Gaviria [facility] [address] [place] [address] 09/05/2024 Rehan Gaviria ASSESSMENTS Encounter Date Diagnosis Assessment Notes Treatment Notes Treatment Clinical Notes 04/25/2024 Encounter for screening colonoscopy (ICD-10 - Z12.11) 04/25/2024 Family history of colon cancer (ICD-10 - Z80.0) 01/18/2024 Gastroesophageal reflux disease without esophagitis (ICD-10 - K21.9) 01/18/2024 Family history of colon cancer (ICD-10 - Z80.0) 05/01/2024 Other malignant neuroendocrine tumors (ICD-10 - C7A.8) Let me know when the appointment at [facility] is going to be. 04/25/2024 Ulcer of intestine (ICD-10 - K63.3) 01/18/2024 Encounter for screening for malignant neoplasm of colon (ICD-10 - Z12.11) 04/25/2024 Diverticulosis of large intestine without perforation or abscess without bleeding (ICD-10 - K57.30) 01/18/2024 Elevated ferritin (ICD-10 - R79.89) Donate blood once every 2-3 months to keep the ferritin down. You don't have Hereditary Hemochromatosis based on the gentic testing from Dr. Caballero.The ferritin level can be followed by your PCP periodically. 04/25/2024 Internal hemorrhoids (ICD-10 - K64.8) PLAN OF TREATMENT Future Test Test Name Order Date UPPER GI ENDOSCOPY [place] DILATION OF ESOPH 11/15/2018 COLONOSCOPY 11/15/2018 COLONOSCOPY 01/18/2024 Insurance Providers Payer Name Payer Address Payer Phone Subscriber Number Group Number Insured Name Patient Relationship to Insured Coverage Start Date Coverage End Date [facility] [address] [place], [place] [id number] MIKE MENG Self - patient is the insured MEDICAL (GENERAL) HISTORY Medical History History ICD Code Denies DE,DM,CVA,Lung disease,renal dise ase Negative screening colonoscopy in 9 GERD--EGD in 2003--no Eastman's no stric ture HTN Hyperlipidemia Anxiety Elevated PSA--sees Dr. Lombardo---observing things for now Negative screening colonosco py in December of 2018 other than a lipomatous ileocecal valve with biopsies from the ileocecal valve were nonrevealing Upper endoscopy in December of 2018 revealed a small hiatal hernia and slight changes of reflux, without any sign of Eastman's esophagus, esophagitis, nor esophageal stricture Elevated ferritin level of a pproximately 500. Testing for hereditary hemochromatosis was negative. He did see Dr. Caballero for this. It was felt that it may be related to his intermittent alcohol use although the ferritin level remained elevated despite normal LFTs. His iron saturation was normal. 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
[2025-01-04 10:06] LABS: MANUAL DIFF FLAG NO
[2025-01-04 10:35] LABS: Basophils Percent Auto 0.4 % (0-2); Eosinophils Absolute Auto 0.2 X10*3/uL (0.0-0.4); Eosinophils Percent Auto 4.3 % (0-4); Hemoglobin 14.2 g/dl (14.0-18.0); Imm Gran Abs Auto 0.02 X10*3/uL (0.00-0.03); Imm Gran Pct Auto 0.4 % (0.0-0.4); Lymphocytes Absolute Auto 1.3 X10*3/uL (1.2-4.9); Lymphocytes Percent Auto 25.5 % (20-40); Mean Corpuscular HGB Conc 33.8 g/dl (31.0-36.0); Mean Corpuscular Hemoglobin 29.7 pg (27.0-33.0); Mean Corpuscular Volume 87.9 fL (80.0-98.0); Mean Platelet Volume 9.7 fL (9.4-12.4); Monocytes Absolute Auto 0.5 X10*3/uL (0.1-1.2); Monocytes Percent Auto 8.7 % (2-11); Neutrophils Absolute Auto 3.1 x10*3/uL (2.0-8.3); Neutrophils Percent Auto 60.7 % (45-73); Platelet Count 209 X10*3/uL (160-400); Red Blood Count 4.78 X10*6/uL (4.60-5.80); Red Cell Distribution Width 12.8 % (11.0-16.0); White Blood Count 5.2 X10*3/uL (4.8-10.8)
[2025-01-04 10:41] LABS: Prostate Specific Antigen Scr 0.37 ng/mL (<0.05-4.0)
[2025-01-04 10:43] LABS: Alanine Aminotransferase 30 U/L (0-40); Albumin Level 4.2 g/dL (3.5-5.0); Alkaline Phosphatase 74 U/L (39-117); Anion Gap 10 (12-20); Aspartate Amino Transferase 31 U/L (5-37); Bilirubin Total 0.5 mg/dL (0.0-1.0); Blood Urea Nitrogen 19 mg/dL (9-16); Calcium 9.8 mg/dL (8.4-10.2); Carbon Dioxide 28 mmol/L (22-29); Chloride 107 mmol/L (96-108); Cholesterol 126 mg/dL (<200); Estimated Glomerular Filt Rate > 60; Ferritin 479 ng/mL (20-250); Glucose Fasting 104 mg/dL (60-99); HDL Cholesterol 44 mg/dL (>40); LDL Cholesterol Calculated 62 mg/dL (<100); Potassium 4.3 mmol/L (3.3-5.1); Sodium 141 mmol/L (135-145); TSH reflex Free T4 1.73 uIU/mL (0.32-4.0); Total Protein 7.7 g/dL (6.5-8.0); Triglycerides 102 mg/dL (<150)
[2025-01-04 11:14] LABS: Appearance Urine Clear; Color Urine Yellow; Glucose Urine UA Negative (Negative); Leukocyte Esterase Urine Negative (Negative); Nitrite Urine Negative (Negative); PH 6.5 (5.0-9.0); Specific Gravity - Urine 1.025 (1.005-1.025); UMIC TRIGGER UACC YES; Urine Blood Small (1+) (Negative); Urine Ketones Negative (Negative); Urine Protein Negative (Neg-Trace)
[2025-01-04 12:19] LABS: Bacteria Urine None Seen (None Seen); Hyaline Casts Urine 0-2 /LPF (0-2); Squamous Epithelial Cell Urine 0-2 /HPF (0-2); WBC Urine 0-5 /HPF (0-5)
== END 2025-01-04 07:54 | disposition home or self-care (01) ==
LOC: HO.HMGCLDS 07:53
PROVIDERS: PCP Nurse Practitioner Family; Visit Provider Nurse Practitioner Family
DX: I10 Essential (primary) hypertension (principal); Z12.5 Encounter for screening for malignant neoplasm of prostate; R79.89 Other specified abnormal findings of blood chemistry
CPT/HCPCS: 36415; 80053; 80061; 81001; 81003; 82728; 84153; 84443; 85025

== ENCOUNTER 2025-01-10 08:21 | Outpatient (REF) | payer MEDICARE, SELFPAY ==
--- NOTE | ~2025-01-10 | XR_ITS ---
EXAMINATION: XR HIP, RIGHT CLINICAL INFORMATION: M25.559 - Pain in unspecified hip COMPARISON: None available. TECHNIQUE: Two views of the right hip. FINDINGS: No fracture, dislocation, or suspicious bone lesion. Normal bone mineralization. Normal alignment. Normal femoral head contour without evidence of AVN. Mild degenerative arthropathy in the right hip joint, with minimal subcapital and superolateral acetabular osteophytic spurs. There is mild calcific enthesopathy at the anterior aspect of the greater trochanter. There is normal acetabular coverage. Soft tissues appear normal. There are vasectomy clips present. XR/XR hip RT min 2V IMPRESSION: 1. Mild degenerative arthritis right hip joint. 2. Mild calcific enthesopathy the anterior aspect greater trochanter. This may represent insertional gluteal CPPD. Electronically signed by: Marcos Hernandez MD 01/10/2025 10:13 AM [facility]
--- NOTE | ~2025-01-10 | XR_ITS ---
EXAMINATION: XR KNEE, RIGHT CLINICAL INFORMATION: M25.569 - Pain in unspecified knee COMPARISON: None available. TECHNIQUE: Two views of the right knee. FINDINGS: There is an excess stenosis at the quadriceps tendon insertion in the patella. There is chondrocalcinosis involving the medial and lateral menisci. There is mild joint space narrowing involving the medial compartment. No suprapatellar bursa joint effusion. No acute cortical disruption or malalignment. XR/XR knee RT 2V IMPRESSION: Enthesopathy, quadriceps tendon insertion. Consider CPPD. Medial compartment osteoarthrosis, mild. Electronically signed by: Андрей Weller MD 01/10/2025 10:01 AM [facility]
--- OUTSIDE RECORDS SUMMARY | 2025-01-10 10:46 | XMS_ITS | Clinical Summary ---
Author Organization [facility] Address [address] [place] [address] Phone Care Team Providers Care Emergency Services Dispatcher Name Role Phone Kaden Boston NP Primary Care Provider Encounters Date Type Department Care Team Description 01/02/2025 5:00 PM EST - 01/02/2025 11:59 PM EST Hospital Encounter [facility] MRI [address] [place] [id number] Pain Discharge Disposition: Home or Self Care [...] Signed Date: 01/03/2025 16:59 ET Workstation ID: [id number] Transcribed By: Self Edit Transcribed Date: 01/03/2025 [...] Signed Date: 01/03/2025 16:59 ET Workstation ID: [id number] Transcribed By: Self Edit Transcribed Date: 01/03/2025 16:50 ET Eulogio Chavez MD IMG MRI PROCEDURES Final Resu lt from Last 3 Months Care Teams Emergency Services Dispatcher Relationship Specialty Start Date End Date Kaden Boston NP [address] [place], [place] PCP - General Family Medicine 12/16/20
--- OUTSIDE RECORDS SUMMARY | 2025-01-10 10:46 | XMS_ITS | Encounter Summary ---
Author Organization [facility] Address [address] [place] [address] Care Team Providers Care Branch Controller Name Role Phone Kaden Boston NP Primary Care Provider + [phone] Reason for Referral * Imaging (Routine) - Pending Review Specialty Diagnoses / Procedures Referred By Ion hart Referred To Contact Radiology Diagnoses Pain Procedures MR Shoulder wo Contrast Right Eulogio Chavez MD [address] [place] [address] Phone: tel: fax: [facility] Referral ID Status Reason Start Date Expiration Date V isits Requested Visits Authorized [id number] Pending Review 12/31/2024 12/31/2025 1 1 Reason for Visit * Imaging (Routine) - Pending Review Specialty Diagnoses / Procedures Referred By Ion hart Referred To Contact Radiology Diagnoses Pain Procedures MR Shoulder wo Contrast Right Eulogio Chavez MD [address] [place] [address] Phone: tel: fax: [facility] Referral ID Status Reason Start Date Expiration Date V isits Requested Visits Authorized [id number] Pending Review 12/31/2024 12/31/2025 1 1 Encounter Details Date Type Department Care Team (Latest Contact Info) Description 01/02/2025 5:00 PM EST - 01/02/2025 11:59 PM EST Hospital Encounter [facility] MRI [address] [place] [address] Pain Discharge Disposition: Home or [...] Signed Date: 01/03/2025 16:59 ET Workstation ID: [id number] Transcribed By: Self Edit Transcribed Date: 01/03/2025 [...] Signed Date: 01/03/2025 16:59 ET Workstation ID: [id number] Transcribed By: Self Edit Transcribed Date: 01/03/2025 16:50 ET Eulogio Chavez MD IMG MRI PROCEDURES Final Resu lt documented in this encounter Visit Diagnoses Diagnosis Pain Generalized pain documented in this encounter Care Teams Branch Controller Relationship Specialty Start Date End Date Kaden Boston NP [address] [facility] [place] PCP - General Family Medicine 12/16/20 documented as of this encounter
--- OUTSIDE RECORDS SUMMARY | 2025-01-10 10:46 | XMS_ITS | Clinical Summary ---
Author Organization [facility] Address [address] [place] [address] Care Team Providers Care Snow Ranger Name Role Phone Kaden Boston Primary Care Provider Allergies Active Allergy Reactions Criticality Noted Date [...] age to complete this topic Care Teams Snow Ranger Relationship Specialty Start Date End Date Kaden Boston [address] [facility] [place] [address] PCP - General Family Medicine 12/16/20
== END 2025-01-10 08:22 | disposition home or self-care (01) ==
LOC: HO.HMGCX 08:21
PROVIDERS: PCP Nurse Practitioner Family; Visit Provider Nurse Practitioner Family
DX: M25.561 Pain in right knee (principal); M25.551 Pain in right hip; Z90.49 Acquired absence of other specified parts of digestive tract
CPT/HCPCS: 73502; 73560; 96127; 99212

== ENCOUNTER 2025-01-10 08:21 | Outpatient (AMB) | payer MEDICARE, SELFPAY ==
--- OUTSIDE RECORDS SUMMARY | 2025-01-10 08:45 | XMS_ITS | Clinical Summary ---
Author Organization [facility] Address [address] [place] [address] Phone Care Team Providers Care Surveillance Observer Name Role Phone Kaden Boston NP Primary Care Provider Encounters Date Type Department Care Team Description 01/02/2025 5:00 PM EST - 01/02/2025 11:59 PM EST Hospital Encounter [facility] MRI [address] [place] [phone] Pain Discharge Disposition: Home or Self Care [...] Signed Date: 01/03/2025 16:59 ET Workstation ID: [id number] Transcribed By: Self Edit Transcribed Date: 01/03/2025 [...] Signed Date: 01/03/2025 16:59 ET Workstation ID: [id number] Transcribed By: Self Edit Transcribed Date: 01/03/2025 16:50 ET Eulogio Chavez MD IMG MRI PROCEDURES Final Resu lt from Last 3 Months Care Teams Surveillance Observer Relationship Specialty Start Date End Date Kaden Boston NP [address], [place] PCP - General Family Medicine 12/16/20
--- OUTSIDE RECORDS SUMMARY | 2025-01-10 08:45 | XMS_ITS ---
Author Organization [facility] Address [address] [place] [address] Care Team Providers Care Tire Room Supervisor Name Role Phone JENS HERNÁNDEZ Primary Care Provider Rehan Lund [phone] REASON FOR VISIT Need path report Encounters Encounter Location Date Provider Diagnosis [facility] [address] [place] [address] 09/05/2024 Rehan Gaviria PLAN OF TREATMENT No Information
--- OUTSIDE RECORDS SUMMARY | 2025-01-10 08:45 | XMS_ITS | Encounter Summary ---
Author Organization [employer] [facility] Address [address] [place] [address] Care Team Providers Care E Commerce Architect Name Role Phone Kaden Boston NP Primary Care Provider [phone] Reason for Referral * Imaging (Routine) - Pending Review Specialty Diagnoses / Procedures Referred By Ion hart Referred To Contact Radiology Diagnoses Pain Procedures MR Shoulder wo Contrast Right Eulogio Chavez MD [address] [place] [address] Phone: tel: fax: [facility] Referral ID Status Reason Start Date Expiration Date V isits Requested Visits Authorized [id number] Pending Review 12/31/2024 12/31/2025 1 1 Reason for Visit * Imaging (Routine) - Pending Review Specialty Diagnoses / Procedures Referred By Ion hart Referred To Contact Radiology Diagnoses Pain Procedures MR Shoulder wo Contrast Right Eulogio Chavez MD [address] [place] [address] Phone: tel: fax: [facility] Referral ID Status Reason Start Date Expiration Date V isits Requested Visits Authorized [id number] Pending Review 12/31/2024 12/31/2025 1 1 Encounter Details Date Type Department Care Team (Latest Contact Info) Description 01/02/2025 5:00 PM EST - 01/02/2025 11:59 PM EST Hospital Encounter [facility] MRI [address] [place] [address] Pain Discharge Disposition: Home or [...] Signed Date: 01/03/2025 16:59 ET Workstation ID: [id number] Transcribed By: Self Edit Transcribed Date: 01/03/2025 [...] Signed Date: 01/03/2025 16:59 ET Workstation ID: [id number] Transcribed By: Self Edit Transcribed Date: 01/03/2025 16:50 ET Eulogio Chavez MD IMG MRI PROCEDURES Final Resu lt documented in this encounter Visit Diagnoses Diagnosis Pain Generalized pain documented in this encounter Care Teams E Commerce Architect Relationship Specialty Start Date End Date Kaden Boston NP [address] [facility] [place] PCP - General Family Medicine 12/16/20 documented as of this encounter
--- OUTSIDE RECORDS SUMMARY | 2025-01-10 08:45 | XMS_ITS ---
Author Organization [facility] Address [address] [place] [address] Care Team Providers Care Electronics Repair Technician Name Role Phone JENS HERNÁNDEZ Primary Care Provider Rehan Lund [phone] REASON FOR VISIT Call patient's 05/04/24 Encounters Encounter Location Date Provider Diagnosis [facility] [address] [place] [phone] 05/03/2024 Rehan Gaviria PLAN OF TREATMENT No Information
--- OUTSIDE RECORDS SUMMARY | 2025-01-10 08:45 | XMS_ITS | Data Portability ---
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 This was aspirated on 09/13/2023. It was explained to the patient and his that this had a high probability of returning for which he has. I discussed treatment options which included aspiration at today's visit however high probability of return. I also discussed referring him to interventional radiology at [facility] for ultrasound-guided drainage. He is amenable to the latter. We will arrange this and he will follow-up shortly after the procedure. If this returns I will have him see Dr. Chavez if possible. If his insurance does not allow him to see Dr. Chavez in [place] I will have him see Dr. Leal. [...] use anti-inflammatorie s and Tylenol with appropriate nnbd-znr-lckqnbp dosing and GI precautions. Questions invited & [...] use anti-inflammatorie s and Tylenol with appropriate rrjz-fyw-iqpyrzj dosing and GI precautions. Questions invited & [...] use anti-inflammatorie s and Tylenol with appropriate cmeu-mpz-xdptlje dosing and GI precautions. Questions invited & [...] Culture , Crystal s, [place] [email or web address] Interventional Radiology Scheduling, [address] [place], [address], 10/11/2023 13:07:24 Procedures None recorde d. Surgeries None recorde d. Imaging MRI, shoulde r, w/o contras t 2024 025 [facility], [address] [place], [address], 01/03/2025 17:46:53 MRI, shoulde r, w/o contras t 2023 024 [email or web address] Not available 11/16/2024 10:07:43 XR, shoulde r, 2 or more view 2023 024 [email or web address] 252 [facility], [address], [place], [address], 10/18/2024 09:19:33 XR, knee, 4 or more view 2022 023 [email or web address] [facility], [address], [address], [place], [address], 09/14/2023 07:57:27 Medication Orders meloxic am 15 mg tablet 2023 025 [id number], [address] [facility], [place], [address], 12/26/2024 11:55:35 lidocai ne (PF) 10 mg/mL (1 %) injecti on solutio n 2022 023 [email or web address] Not available 11/06/2024 09:29:59 bupivac sean HCl 0.5 % (5 mg/mL) injecti on solutio n 2022 023 [email or web address] Not available 11/06/2024 09:30:00 Patient TargetsNo targets recorded. Patient Instructions Encounter Date Encounter Id Patient Instructions Last Modified By Organization Details Last Modified Time 09/13/2023 [id number] X-ray of the rig ht knee reveals well-maintained joint space in all 3 compartments. There is notable soft tissue edema best visualized on lateral and sunrise view when compared to the left knee. No acute bony abnormality Not available 09/15/2023 08:18:02 10/18/2024 [id number] 3 views of the right shoulder were obtained today 10/18/24 in the [place] office. Welled maintain joint space. Acromiohumeral interval intact. No obvious soft tissue calcification. Type II acromion. No acute fracture or dislocation appreciated. Mild degenerative changes Interpreted by: Kendrick Hart PA-C Not available 10/18/2024 10:00:03 11/06/2024 [id number] 3 views of the right shoulder were obtained 10/18/24 in the [place] office. Welled maintain joint space. Acromiohumeral interval intact. No obvious soft tissue calcification. Type II acromion. No acute fracture or dislocation appreciated. Mild degenerative changes Interpreted by: Kendrick Hart PA-C 3 views of each of the bilateral shoulders were obtained 06/27/2023 in the [place] office. Joint spaces well-maintained. Moderate degenerative changes of the AC joint bilaterally. No acute fractures or dislocations. Marginal spurring at the inferior aspect of the right glenoid. There is evidence of rotator cuff repair and acromioplasty of the left. No acute complications appreciated. Findings: Well-maintained joint spaces. No acute fracture. Interpreted by: Kendrick Hart PA-C Not available 11/06/2024 06:51:36 12/24/2024 [id number] 3 views of the right shoulder were obtained 10/18/24 in the [place] office. Welled maintain joint space. Acromiohumeral interval intact. No obvious soft tissue calcification. Type II acromion. No acute fracture or dislocation appreciated. Mild degenerative changes Interpreted by: Kendrick Hart PA-C 3 views of each of the bilateral shoulders were obtained 06/27/2023 in the [place] office. Joint spaces well-maintained. Moderate degenerative changes [...] contr ast No observ ation record ed. [facility] [address] [facility], [place], [address], 01/03/2025 17:46:53 Result Notes None recorded. 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 Active 2022 LIOR EASTMAN PA-C [address], [place], [address], [place] [facility], P 3 13:08:25 Pain of right shoulder joint 0207717876352 9100 Active 2023 KENDRICK HART PA-C [address], [place], [address], [facility], P 4 09:40:11 Pain of left shoulder joint 8741900516628 9109 Active 2023 KENDRICK HART PA-C [address], [place], [address], [place] [facility], P 4 09:40:11 Pain of right shoulder region Active 2023 KENDRICK HART PA-C [address], [place], [address], [facility], P 4 08:33:39 Problem Notes None recorded. Procedures Surgical History Date Name Laterality Status Provider Name and Address Organization Details Recorded Time 09/13/20 23 Knee Joint/Bursa Asp & Inj completed LIOR EASTMAN PA-C [address], [place], [address], [place] [facility] 09/15/2023 08:15:22 repair of musculotendinous cuff of shoulder completed Nadya Ramon [facility], P 06/27/2023 14:15:30 Imaging Results Imaging Date Name Status LastModified by Lisa judge Details LastModified Time 10/12/2023 imaging/diagn ostic result completed pippa Information not available 10/12/2023 11:34:21 01/02/2025 MRI, shoulder, w/o contrast completed [facility] [address] [facility], [place], [address], 01/03/2025 17:46:53 Procedure Notes None recorded. Medical [...] Updated DateTime 11/06/2024 177.8 cm 25.7 kg/m2 58167.[address] [facility] 11/06/2024 09:30:08 Date Recorded Body height Body mass index (BMI) Body weight Provider Name and Address Organization Details Last Updated DateTime 12/24/2024 177.8 cm 25.5 kg/m2 [address]120.[address] [facility] 12/24/2024 10:17:50 Date Recorded Body height Provider Name an d Address Organization Details Last Updated DateTime 09/13/[address]23 [address] [facility] 09/13/2023 14:59:00 Social History Question Answer Notes LastModified by Organizat ion Details LastModified Time Tobacco Smoking Status Never Smoker Nadya Ramon null, [facility] 06/27/2023 14:15:56 What Is Your Level [...] SNOMED-CT Code Diagnosis ICD10 Code Diagnosis Note [id number] MD VANDA Abebe[address] [address] 06/27/2023 13:34:51 06/27/2023 14:12:40 Pain of right shoulder joint 4397936493 7716658 M25.511 Pain of le ft shoulder joint 2743887232 3401824 M25.512 [id number] MD VANDA Causey [address] [address] 09/13/2023 14:29:31 09/13/2023 15:30:29 Pain of right knee joint 4106178847 32253 M25.561 Effusion o f joint of right knee 6995364762 31897 M25.461 Prepatella r bursitis of right knee 3505061432 90192 M70.41 [id number] MD VANDA Causeyeric [address] [address] 09/29/2023 15:20:13 09/29/2023 15:55:52 Prepatellar bursitis of right knee 1479647180 33082 M70.41 [id number] [facility] [address] [place] [address] 10/18/2024 08:32:20 10/18/2024 09:19:33 Pain of right shoulder region 9019025295 M25.511 Pain of ri ght shoulder joint 1175329434 9807781 M25.511 History of fall 90942281 9 Z91.81 [id number] Eulogio Chavez MD [address] [address] 11/06/2024 09:18:20 11/06/2024 10:00:54 Pain of right shoulder joint 1656671285 0215263 M25.511 History of fall 52815339 9 Z91.81 [id number] Eulogio Chavez MD [address] [address] 12/24/2024 09:47:09 12/24/2024 10:45:38 Pain of right shoulder joint 6994138214 0195677 M25.511 History of fall 46445916 9 Z91.81 Health Concerns Section Related Observation LastModified by Organization Detai ls LastModified Time None Recorded Concern Status LastModified by Organization Details LastModified Time None Recorded Advance Directives Directive None Recorded Payers Encounter Date Sequence Insurance Name Policy Number Policy Melton Covered Member ID Melton Member ID Guarantor Name 09/13/2023 1 [place] [id number] Faraz Bailey [id number] Faraz Bailey 09/29/2023 1 [place] [id number] Faraz Bailey [id number] Faraz Bailey 10/18/2024 1 [place] - [place]) [id number] Faraz Bailey [id number] Faraz Bailey 11/06/2024 1 [place]) [id number] Faraz Bailey [id number] Faraz Bailey 12/24/2024 1 [place]) [id number] Faraz Bailey [id number] Faraz Bailey Notes Date Note Type [...] evaluation and treatment. 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 Never smoker. Denies EtOH, illicit or recreational drug use. Reported medical history includes high blood pressure and GERD. 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 Never smoker. Denies EtOH, illicit or recreational drug use. Reported medical history includes high blood pressure and GERD. 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 Never smoker. Denies EtOH, illicit or recreational drug use. Reported medical history includes high blood pressure and GERD. Eulogio Chavez MD [address], [place], [address], [facility] 12/24/2024 11:53:07
--- OUTSIDE RECORDS SUMMARY | 2025-01-10 08:45 | XMS_ITS | Clinical Summary ---
Author Organization [facility] Address [address] [place] [address] Care Team Providers Care Commercial Leasing Agent Name Role Phone Kaden Boston Primary Care Provider [phone] Allergies Active Allergy Reactions Criticality Noted Date [...] age to complete this topic Care Teams Commercial Leasing Agent Relationship Specialty Start Date End Date Kaden Boston [address] [facility] [place] [address] PCP - General Family Medicine 12/16/20
--- OUTSIDE RECORDS SUMMARY | 2025-01-10 08:45 | XMS_ITS ---
Author Organization [facility] Address [address] [place] [address] Care Team Providers Care Photo Graphics Librarian Name Role Phone JENS HERNÁNDEZ Primary Care Provider Rehan Lund [phone] ALLERGIES Allergen (clinical drug ingredient) Drug/Non Drug [...] tumors (C7A.8) Active confirmed Malignant neuroendocrine tumor (295577781605790) VITAL SIGNS Temperature 97.5 degrees Fahrenheit 05/01/20 24 Blood pressure systolic 000 mm Hg 05/01/20 24 Blood pressure diastolic 00 mm Hg 024 Height 69 in 05/01/2024 Weight 182 lb 6 oz lbs 05/01/2024 BMI 26.93 kg/m2 05/01/2024 Encounters Encounter Location Date Provider Diagnosis [facility] [address] [place] [address] 05/01/2024 Rehan Gaviria Other malignant neuroendocrine tumors C7A.8 ASSESSMENTS Encounter Date Diagnosis Assessment Notes Treatment Notes Treatment Clinical Notes 05/01/2024 Other malignant neuroendocrine tumors (ICD-10 - C7A.8) Let me know when the appointment at [facility] is going to be. PLAN OF TREATMENT Treatment Notes Assessment Notes Other malignant neuroendocrine tumors Le t me know when the appointment at [facility] is going to be. Next Appt [...]
--- OUTSIDE RECORDS SUMMARY | 2025-01-10 08:46 | XMS_ITS | Patient Health Record ---
Author Organization [facility] Address [address] [place] [address] Care Team Providers Care Search Engine Marketing Manager Name Role Phone JENS HERNÁNDEZ Primary Care Provider Rehan Lund [phone] ALLERGIES Allergen (clinical drug ingredient) Drug/Non Drug Allergy documented on EMR Reaction Allergy Type Onset Date Status penicillamine Penicillamine Unknown Drug Allergy Active erythromycin Erythromycin Unknown Drug Allergy A ctive RESULTS Component Value Reference Range Notes Pathology Reviewed date:05/07/2024 10:31:16 PM Interpretation: Performing Lab:[facility], [address] [place] [address] Notes/Report: REASON FOR REFERRAL No Information MEDICATIONS [...] W/U Status Risk SNOMED Code Notes Problem Encounter for screening for malignant neoplasm of colon (Z12.11) Active confirmed 631801823 Problem Other malignant neuroendocrine tumors (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) Active confirmed Malignant neuroendocrine tumor (878559120569283 ) Problem Diverticulosis of large intestine without perforation or abscess without bleeding (K57.30) Active confirmed Diverticul ar disease of colon (256317827) Problem Gastroesophageal reflux disease without esophagitis (K21.9) Active confirmed 332634422 Problem Family history of colon cancer (Z80.0) Active confirmed 392412054 Problem Elevated ferritin (R79.89) Active confirmed Serum ferritin high (017650802) Problem Esophageal dysphagia (R13.10) Active confirmed 63318664 VITAL SIGNS Temperature 97.5 degrees Fahrenheit 05/01/2024 Blood pressure diastolic 00 mm Hg 05/01/2024 Height 69 in 05/01/2024 Blood pressure systolic 000 mm Hg 05/01/2024 Weight 182 lb 6 oz lbs 05/01/2024 BMI 26.93 kg/m2 05/01/2024 Encounters Encounter Location Date Provider Diagnosis [facility] [place] [address] [place], [place] [id number] 04/23/2024 Rehan Gaviria [facility] [place] [address] [place], [place] [id number] 04/25/2024 Rehan Gaviria Encounter for screen ing colonoscopy Z12.11 ; Family history of colon cancer Z80.0 ; Ulcer of intestine K63.3 ; Diverticulosis of large intestine without perforation or abscess without bleeding K57.30 and Internal hemorrhoids K64.8 [facility] [address] [place] [address] 01/18/2024 Rehan Gaviria Gastroesophageal ref lux disease without esophagitis K21.9 ; Family history of colon cancer Z80.0 ; Encounter for screening for malignant neoplasm of colon Z12.11 and Elevated ferritin R79.89 [facility] [address] [place] [address] 05/01/2024 Rehan Gaviria Other malignant neuroendocrine tumors C7A.8 [facility] [address] [place] [address] [place] [address] 01/19/2024 Rehan Khadra [place] [address] 04/27/2024 Rehan Gaviria [facility] [address] [place] [address] 05/03/2024 Rehan Gaviria [facility] [address] [place] [address] 09/05/2024 Rehan Gaviria ASSESSMENTS Encounter Date Diagnosis [...] Let me know when the appointment at [facility] is going to be. 04/25/2024 Ulcer of [...] Insured Coverage Start Date Coverage End Date [facility] [address] [place], [place] [id number] MIKE MENG Self - patient is the insured MEDICAL (GENERAL) HISTORY Medical History History ICD Code Denies MD,DM,CVA,Lung disease,renal dise ase Negative screening colonoscopy in [...]
--- OUTSIDE RECORDS SUMMARY | 2025-01-10 08:46 | XMS_ITS | Continuity of Care Document ---
Author Organization [facility] [place] Address [address] [facility] [address] [place] [address] Care Team Providers Care Speeder Frame Tender Name Role Phone JENS HERNÁNDEZ Primary [...] use anti-inflammator ies and Tylenol with appropriate wscp-xlb-mjptkho dosing and GI precautions. Questions invited & [...] Imaging MRI, shoulder, w/o contrast 2024 025 [facility], [address], [place], [address], 01/03/2025 17:46:53 Medication Orders None recorded. Patient TargetsNo targets recorded. Patient Instructions Encounter Date Encounter Id Patient Instructions Last Modified By Organization Details Last Modified Time 12/24/2024 [id number] 3 views of the right shoulder were obtained 10/18/24 in the [place] office. Welled maintain joint space. Acromiohumeral interval intact. No obvious soft tissue calcification. Type II acromion. No acute fracture or dislocation appreciated. Mild degenerative changes Interpreted by: Kendrick Hart PA-C 3 views of each of the bilateral shoulders were obtained 06/27/2023 in the [place] office. Joint spaces well-maintained. Moderate degenerative changes [...] contr ast No observ ation record ed. [facility] [address] [place], [address], 01/03/2025 17:46:53 Result Notes None recorded. 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 768657447 Active 2022 LIOR VELASCO PA-C [address] [facility],[address], [place], [address], [place] [facility], P 3 13:08:25 Pain of right shoulder joint 2278151947005 9100 Active [address], [place], [address], [place] [facility], P 4 09:40:11 Pain of left shoulder joint 0839273149306 9109 Active 2023 KENDRICK HART PA-C [address], [place], [address], [place] [facility], P 4 09:40:11 Pain of right shoulder region Active 2023 KENDRICK HART PA-C [address], [place], [address], [facility] P 08:33:39 Problem Notes None recorded. Procedures Surgical History Date Name Laterality Status Provider Name and Address Organization Details Recorded Time 09/13/20 23 Knee Joint/Bursa Asp & Inj completed LIOR VELASCO PA-C [address], [place], [address], [place] [facility] 09/15/2023 08:15:22 repair of musculotendinous cuff of shoulder completed [facility] 06/27/2023 14:15:30 Imaging Results None recorded. [...] Updated DateTime 12/24/2024 177.8 cm 25.5 kg/m2 43403.[address] [facility] 12/24/2024 10:17:50 Social History Question Answer Notes LastModified by Organizat ion Details LastModified Time Tobacco Smoking Status Never Smoker Nadya Ramon gordy, [facility], [place] 06/27/2023 14:15:56 What Is Your Level [...] SNOMED-CT Code Diagnosis ICD10 Code Diagnosis Note [id number] Eulogio Chavez MD [address] [address] 12/24/2024 09:47:09 12/24/2024 10:45:38 Pain of right shoulder joint 0678199960 8141811 M25.511 History of fall 83789195 9 Z91.81 Health Concerns Section Related Observation LastModified by Organization Detai ls LastModified Time None Recorded Concern Status LastModified by Organization Details LastModified Time None Recorded Payers Encounter Date Sequence Insurance Name Policy Number Policy Melton Covered Member ID Melton Member ID Guarantor Name 12/24/2024 1 [place] - [place]) [id number] Faraz Bailey [id number] Faraz Bailey Notes Date Note Type [...] 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 Never smoker. Denies EtOH, illicit or recreational drug use. Reported medical history includes high blood pressure and GERD. Eulogio Chavez MD [address], [place], [address], [place] [facility] 12/24/2024 11:53:07
[2025-01-10 08:52] VITALS: BP 122/80; PULSE 58; TEMP 36.6; O2SAT 98; BMI 26.9
--- NOTE | 2025-01-10 08:52 | A.OFFPC_ITS ---
Vital Signs 01/10/25 08:52 Height 5 ft 9 in Weight 182 lb BMI 26.9 BP 122/80 Blood Pressure Location Lt brachial Position Sitting Pulse 58 Pulse Source Pulse Oximeter Temp 97.9 F Temp Source Oral Pulse Oximetry (%) 98 Intake Visit Reasons: 6 mon f/up Allergies erythromycin base [ERYTHROMYCIN BASE] Allergy (Unknown, Verified 01/10/25 09:34) Gastrointestinal Upset penicillin V Allergy (Unknown, Verified 01/10/25 09:34) Gastrointestinal Upset Penicillins [PENICILLINS] Allergy (Unknown, Verified 01/10/25 09:34) Gastrointestinal Upset Medication List - Last Reconciled 01/10/25 by Kaden Boston, MAC DEVELOPER- clonazepam 1 mg PO DAILY fluticasone propion-salmeterol 500-50 mcg/dose (Advair Diskus) 1 inh inhalation BID lisinopril 10 mg PO DAILY 90 days pantoprazole 40 mg PO DAILY 90 days rosuvastatin 20 mg PO DAILY sertraline 200 mg (2 x 100 mg) PO DAILY Tobacco use date assessed: 01/10/25 Fall risk assessment: No Falls in past year Last assessed Fall Risk: 01/10/25 Dental Screening Dental Screen Date: 01/10/25 Did you have a dental visit in the last 12 months?: Yes Did you have a dental problem in the last 6 months where you did not have access to dental care?: No Was dental information given to patient?: Patient has dentist HPI 6 mon f/up HPI Details Chief Complaint The patient presents with ongoing right knee and hip pain. History of Present Illness The patient is a 65-year-old male presenting with persistent right knee and hip pain. He has a previous diagnosis of pseudogout, for which he has received drainage in the past. The knee pain is localized to the anterior aspect, without recent swelling, but ongoing discomfort. Despite a lack of knee joint swelling, faint crepitus has been noted during joint movement. The patient also reports isolated pain in the right hip, unsupported by any clicking or popping sounds. This aligns with a positive Benja?s test result, suggestive of hip involvement. The patient is scheduled to follow up in [place] for prior colectomy treatment and upcoming PET scan. Previous lung examinations have been normal, with S1 S2 sounds clear. Social History Health Maintenance - Preparation for follow-up treatment in [place] - Upcoming PET scan in the next weeks Review of Systems - Musculoskeletal: Reports right knee pa in and right hip pain. Physical Exam General: Cooperative, healthy appearing, comfortable, no acute distress and well developed Orientation: Patient oriented x3 Limitations: No limitations Head: Normal to inspection Ears: Hearing grossly normal bilaterally Nose: Normal external nose present Face and sinus: Normal facial exam Eyes: Appearance normal, both eyes and all related structures Neck: Normal visual inspection and Yes full ROM Respiratory: Normal respiratory effort and able to speak in complete sentences. Clear to auscultation bilaterally Cardiovascular: Regular rate and rhythm. Normal S1 and S2 GI: Normal to inspection. Soft to palpation and nontender Skin: No rashes or lesions noted Neuro: Patient oriented x3 Extremities: Right knee with faint crepitus with extension and flexion without pain. Negative Seamus's and Joe's tests. Positive Benja's test for the right hip. Normal to inspection otherwise. Results Plan For the patient's ongoing pain, imaging through X-rays of the right knee and hip has been ordered to identify any contributing factors related to the patient?s history of pseudogout or new pathology. The clinical approach will include continued monitoring with the patient's [facility] follow-up care, including a PET scan, given his prior colectomy. The outcomes of these diagnostic studies will inform any further clinical management required. Discussion Notes We discussed that the patient will have X-rays of both his knee and his hip today. I explained that these imaging studies will help assess the reasons for his continued joint pain. Additionally, we talked about his upcoming [place] follow-up care related to his recent colectomy and upcoming PET scan, emphasizing the importance of these evaluations. The patient was informed about the necessity for ongoing monitoring and consented to the recommended imaging studies. Patient Instructions - Proceed with X-rays of your right knee and hip as planned. - Follow up with your treatment team in [place] as scheduled. - Ensure that you attend your PET scan a ppointment in the coming weeks. - Contact the office immediately for any worsening of pain or new symptoms. [facility] Medical History (Updated 01/10/25 @ 09:14 by JOSSE HicksP-) Trigger finger Dupuytren contracture Colon carcinoma Hiatal hernia Elevated PSA Anxiety Hyperlipidemia Obstructive sleep apnea on CPAP Asthma NICOLE (obstructive sleep apnea) Asthmatic bronchitis BPH (benign prostatic hyperplasia) Microscopic hematuria Urethral stricture Surgical History (Updated 01/10/25 @ 09:33 by LEN Hicks) H/O right hemicolectomy Hx of arthroscopy of left knee History of esophagogastroduodenoscopy (EGD) H/O colonoscopy History of tonsillectomy History of appendectomy Family History Father HTN (hypertension) Mother No problems noted. Brother Colon cancer Sister No problems noted. Son No problems noted. Daughter No problems noted. Social History Housing: House Alcohol intake: current Alcohol intake frequency: a few times a week Patient Tobacco Use Status: Former Tobacco user Years Smoked: 20 years e-Cigarette/Vaping Use: Never Used Second Hand Smoke Exposure: No service: No Current occupational status: employed Current occupation: [employer] Current occupational exposures/hazards: No Cognitive needs: No Hearing needs: No Vision needs: No Questionnaire PHQ-9 Over the last 2 weeks, how often have you been bothered by any of the following problems? 1. Little interest or pleasure in doing things: not at all 2. Feeling down, depressed, or hopeless: not at all 3. Trouble falling or staying asleep, or sleeping too much: not at all 4. Feeling tired or having little energy: not at all 5. Poor appetite or overeating: not at all 6. Feeling bad about yourself - or that you are a failure or have let yourself or your family down: not at all 7. Trouble concentrating on things, such as reading the newspaper or watching television: not at all 8. Moving or speaking so slowly that other people could have noticed. Or the opposite - being so fidgety or restless that you have been moving around a lot more than usual: not at all 9. Thoughts that you would be better off or of hurting yourself in some way: not at all Total score: 0 Depression Screening Interpretation: Negative Depression Screening Done: Yes 67762 - PHQ-9 Billing: Yes Source: Developed by Drs. Rehan De La Cruz, Dayana BMendez Murry and colleagues, with an educational reji from [employer]. Thrive Questionnaire Date Thrive assessed: 01/10/25 I am a: Patient What is your living situation today?: I have a steady place to live Within the past 12 months, did the food you bought not last and you didn't have the money to get more?: Never true Within the past 12 months, did you worry whether your food would run out before you got money to buy more?: Never true Do you have trouble paying for medicines?: No Do you have trouble getting transportation to medical appointments?: No Do you have trouble paying your heating and electricity bill?: No Do you have trouble taking care of your child, family member or friend?: No Do you have trouble with day-to-day activities such as bathing, preparing meals, shopping, managing finances, etc.?: No Are you currently unemployed and looking for a job?: No Are you interested in more education?: No Please select the resources that you would like help with: None Currently or been in a relationship where the following occur: No concerns reported THRIVE Score: 0 AUDIT C Alcohol Use Questionnaire (AUDIT-C) 1. How often do you have a drink containing alcohol?: 2-3 times a week 2. How many drinks containing alcohol do you have on a typical day when you are drinking?: 3 or 4 3. How often do you have six or more drinks on one occasion?: Never Total Score: 4 Score Reviewed/Action Taken: Yes JAMILAH-7 AMB Questionnaire JAMILAH-7 Date JAMILAH - 7 assessed: 01/10/25 Feeling nervous, anxious, or on edge: 0 = Not at all Not being able to stop or control worryin = Not at all Worrying too much about different things: 0 = Not at all Trouble relaxin = Not at all Being so restless that it is hard to sit still: 0 = Not at all Becoming easily annoyed or irritable: 0 = Not at all Feeling afraid as if something awful might happen: 0 = Not at all Total JAMILAH-7 score (0-4 normal; 5-9 mild; 10-14 moderate; 15-21 severe): 0 Source: Developed by Drs. Rehan De La Cruz, Mendez Wilson and colleagues, with an educational reji from [employer]. JAMILAH-7 Assessment Billing JAMILHA-7 Assessment Tool: JAMILAH-7 Assessment 84953 Physical exam (Primary Care) Vital Signs: Last Vital Signs Temp 97.9 F 01/10/25 08:52 Pulse 58 01/10/25 08:52 BP 122/80 01/10/25 08:52 Pulse Ox 98 01/10/25 08:52 BMI result Body Mass Index 26.9 Tobacco/Smoking Status: Tobacco use Status Tobacco use date assessed 01/10/25 01/10/25 08:59 Patient Tobacco Use Status Former Tobacco user 01/10/25 08:59 e-Cigarette/Vaping Use Never Used 01/10/25 08:59 PHQ-9: PHQ-9 Score PHQ-9: Total score 0 01/10/25 08:59 Depression Screening Interpretation: Negative Thrive Assessment: Date of Thrive Assessment Date Thrive assessed 01/10/25 01/10/25 08:59 Currently or been in a relationship where the following occur: No concerns reported Coding Level of Care Code Est Pt Level 3 (29184) Diagnoses Acute hip pain M25.559 Knee pain M25.569 H/O right hemicolectomy Z90.49 Additional Codes JAMILAH-7 Assessment Billing - JAMILAH-7 Assessment Tool: JAMILAH-7 Assessment 68267 ([id number]) PHQ-9 - 07296 - PHQ-9 Billing: Yes ([id number]) Assessment & Plan Assessment & Plan (1) Acute hip pain: Code(s): M25.559 - Pain in unspecified hip Category: Medical (2) Knee pain: Code(s): M25.569 - Pain in unspecified knee Category: Medical (3) H/O right hemicolectomy: Comment: 06/2024 Code(s): Z90.49 - Acquired absence of other specified parts of digestive tract Category: Surgical Plan . Orders: Orders XR knee RT 2V Today M25.569 - Pain in unspecified knee XR hip RT min 2V Today M25.559 - Pain in unspecified hip
== END 2025-01-10 09:32 | disposition home or self-care (01) ==
PROVIDERS: PCP Nurse Practitioner Family; Visit Provider Nurse Practitioner Family
DX: M25.559 Pain in unspecified hip (principal); M25.569 Pain in unspecified knee; Z90.49 Acquired absence of other specified parts of digestive tract

== ENCOUNTER → 2025-01-10 09:37 | Outpatient (BNV) | payer MEDICARE, SELFPAY | PROVIDERS: PCP Nurse Practitioner Family; Visit Provider Radiology Diagnostic Radiology | DX: M25.561 Pain in right knee (principal); M25.551 Pain in right hip | CPT/HCPCS: 73502; 73560 ==

== ENCOUNTER 2025-02-01 08:05 | Outpatient (AMB) | payer MEDICARE, SELFPAY ==
--- NOTE | 2025-02-01 08:12 | MHC.OFFVIS ---
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 Allergies erythromycin base [ERYTHROMYCIN BASE] Allergy (Unknown, Verified 01/10/25 09:34) Gastrointestinal Upset penicillin V Allergy (Unknown, Verified 01/10/25 09:34) Gastrointestinal Upset Penicillins [PENICILLINS] Allergy (Unknown, Verified 01/10/25 09:34) Gastrointestinal Upset PFSH Medical History (Updated 01/28/25 @ 07:29 by HERLINDA Hicks-) Primary malignant neuroendocrine tumor of cecum Trigger finger Dupuytren contracture Colon carcinoma Hiatal hernia Elevated PSA Anxiety Hyperlipidemia Obstructive sleep apnea on CPAP Asthma NICOLE (obstructive sleep apnea) Asthmatic bronchitis BPH (benign prostatic hyperplasia) Microscopic hematuria Urethral stricture Surgical History (Updated 01/10/25 @ 09:33 by LEN Hicks) H/O right hemicolectomy Hx of arthroscopy of left knee History of esophagogastroduodenoscopy (EGD) H/O colonoscopy History of tonsillectomy History of appendectomy Family History Father HTN (hypertension) Mother No problems noted. Brother Colon cancer Sister No problems noted. Son No problems noted. Daughter No problems noted. Social History Housing: House Alcohol intake: current Alcohol intake frequency: a few times a week Patient Tobacco Use Status: Former Tobacco user Years Smoked: 20 years e-Cigarette/Vaping Use: Never Used Second Hand Smoke Exposure: No service: No Current occupational status: employed Current occupation: [id number] Current occupational exposures/hazards: No Cognitive needs: No Hearing needs: No Vision needs: No Review of Systems Const Denies chills, Denies fatigue, Denies fever(s), Denies weight gain and Denies weight loss ENT Denies dizziness Card Denies chest pain, Denies leg edema, Denies lightheadedness, Denies palpitations, Denies dyspnea on exertion, Denies orthopnea and Denies other Resp Denies cough and Denies dyspnea on exertion GI Denies hematochezia and Denies change in stool character Musc Denies abnormal gait, Denies muscle weakness, Denies numbness, Denies radiating pain into limb and Denies tingling Neuro Denies abnormal gait, Denies dizziness, Denies numbness and Denies tingling Endo Denies fatigue and Denies palpitations Coding
[2025-02-01 08:14] VITALS: BP 170/80; PULSE 65; BMI 26.8
--- NOTE | 2025-02-01 08:18 | MHC.OFFVIS ---
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 Allergies erythromycin base [ERYTHROMYCIN BASE] Allergy (Unknown, Verified 01/10/25 09:34) Gastrointestinal Upset penicillin V Allergy (Unknown, Verified 01/10/25 09:34) Gastrointestinal Upset Penicillins [PENICILLINS] Allergy (Unknown, Verified 01/10/25 09:34) Gastrointestinal Upset Medication List - Last Reconciled 02/01/25 by Tiffanie Pete, MOTORCYCLE SUBASSEMBLER-C clonazepam 1 mg PO DAILY colchicine 0.3 mg (1/2 x 0.6 mg) PO DAILY famotidine 20 mg PO DAILY 30 days indomethacin 50 mg PO BID PRN 30 days lisinopril 10 mg PO DAILY 90 days rosuvastatin 20 mg PO DAILY sertraline 200 mg (2 x 100 mg) PO DAILY HPI HPI Cardiac clearance/02-06/Ortho/Lt shoulder rotater: Details: Faraz is a 65-year-old male with past medical history of hypertension, hyperlipidemia, sleep apnea with CPAP use, prior cardiac evaluation for atypical chest discomfort and palpitations without significant findings who presents for preop cardiovascular clearance for right rotator cuff surgery. Today he reports he has been feeling well with the exception of his shoulder, right hip and right knee discomfort. He is scheduled to undergo surgery on his shoulder on 02/06/2025 at [facility]. No chest discomfort at rest or with activity. No shortness of breath, PND, orthopnea or edema. No concerning heart palpitations, lightheadedness, presyncope, syncope. He says he walks 3 miles daily including hills without any chest symptoms. He does have orthopedic complaints with walking. Tells me he is anxious coming to office visits and that is why his blood pressure is high. His home blood pressures are running 130/80. Blood pressure at recent PCP visit was 122/80. He has been compliant with his medications. [facility] Medical History Primary malignant neuroendocrine tumor of cecum Trigger finger Dupuytren contracture Colon carcinoma Hiatal hernia Elevated PSA Anxiety Hyperlipidemia Obstructive sleep apnea on CPAP Asthma NICOLE (obstructive sleep apnea) Asthmatic bronchitis BPH (benign prostatic hyperplasia) Microscopic hematuria Urethral stricture Surgical History H/O right hemicolectomy Hx of arthroscopy of left knee History of esophagogastroduodenoscopy (EGD) H/O colonoscopy History of tonsillectomy History of appendectomy Family History Father HTN (hypertension) Mother No problems noted. Brother Colon cancer Sister No problems noted. Son No problems noted. Daughter No problems noted. Social History Housing: House Alcohol intake: current Alcohol intake frequency: a few times a week Patient Tobacco Use Status: Former Tobacco user Years Smoked: 20 years e-Cigarette/Vaping Use: Never Used Second Hand Smoke Exposure: No service: No Current occupational status: employed Current occupation: [employer] Current occupational exposures/hazards: No Cognitive needs: No Hearing needs: No Vision needs: No Review of Systems Const All systems reviewed & are unremarkable except as noted in HPI and below Card Denies chest pain, Denies chest pain at rest, Denies chest pain with activity, Denies rapid heart rate, Denies irregular heart rhythm, Denies leg edema, Denies dyspnea, Denies dyspnea on exertion and Denies orthopnea Resp Denies dyspnea and Denies dyspnea on exertion GI Denies no additional complaints Musc Details: right knee, hip and right shoulder discomfort Neuro Details: anxiety when he comes to office visits Denies no additional complaints Physical Exam Vital Signs: Last Vital Signs Pulse 65 02/01/25 08:14 BP 170/80 H 02/01/25 08:14 BMI result Body Mass Index 26.8 Const General: cooperative, healthy appearing, comfortable and no acute distress Orientation/consciousness: patient oriented x3 Neck Neck: Yes normal visual inspection and Yes no JVD Resp Effort & Inspection: normal respiratory effort Auscultation: clear to auscultation bilaterally, no rales, no rhonchi and no wheezes Cardio Rate: regular rate Rhythm: regular rhythm Heart sounds: S1 normal heart sound present, S2 normal heart sound present, no gallops, no murmurs and no rubs Neuro General: patient oriented x3 Extrem General: Yes normal to inspection, No no pedal edema and No calf tenderness Psych Appearance: grossly normal Mental Status: mental status grossly normal Speech and movement: Normal speech and movement present Office Procedures EKG Details: Today, read by me Sinus bradycardia, rate 56, Qtc 418ms [id number], Complete Results Reviewed Results Reviewed: Stress echo 09/15/2022: Exercise 9 minutes 35 seconds, no anginal symptoms, borderline EKG changes, no echo evidence of ischemia. Echocardiogram done 07/26/2022 showed normal study. Holter monitor 07/26/2022 for 3 days showed sinus rhythm with average heart rate 67, rare ventricular ectopy, short SVT runs, longest 4 beats. Coronary calcium score done 09/15/2022 was 7, in the LAD. Assessment & Plan Assessment & Plan (1) Preop cardiovascular exam: Code(s): Z01.810 - Encounter for preprocedural cardiovascular examination Category: Medical Plan: Preop for right rotator cuff surgery with Dr. Santillan at [facility] scheduled for 02/06/2025. Has activity level greater than 4 Mets without symptoms. He can proceed with low cardiac risk. Continue antihypertensives. Call/consult Cardiology if needed. (2) NICOLE (obstructive sleep apnea): Code(s): G47.33 - Obstructive sleep apnea (adult) (pediatric) Category: Medical Plan: Known obstructive sleep apnea, uses CPAP faithfully. (3) HTN (hypertension): Code(s): I10 - Essential (primary) hypertension Category: Medical Plan: Blood pressure elevated today however he reports anxiety at visits. Home blood pressures and blood pressure at recent PCP visit within normal limits. Will have him continue on lisinopril. Plan Time spent on chart review, documentation, interview assessment. Coding Level of Care Code Est Pt Level 4 (21851) Complex EM visit Add On G2211 Diagnoses Preop cardiovascular exam Z01.810 NICOLE (obstructive sleep apnea) G47.33 HTN (hypertension) I10 CPT Codes EKG - CPT: 86524-Kaapztyphxzcirpal, Complete ([id number]) Time Spent (min) 28
== END 2025-02-01 08:38 | disposition home or self-care (01) ==
LOC: HO.HCS 08:06
PROVIDERS: PCP Nurse Practitioner Family; Visit Provider Nurse Practitioner Family
DX: G47.33 Obstructive sleep apnea (adult) (pediatric) (principal); I10 Essential (primary) hypertension; Z01.810 Encounter for preprocedural cardiovascular examination
CPT/HCPCS: 93010; 99214; G2211

== ENCOUNTER → 2025-02-01 08:05 | Outpatient (BNVA) | payer MEDICARE, SELFPAY | PROVIDERS: PCP Nurse Practitioner Family; Visit Provider Nurse Practitioner Family | DX: Z01.810 Encounter for preprocedural cardiovascular examination (principal); I10 Essential (primary) hypertension; G47.33 Obstructive sleep apnea (adult) (pediatric); R00.1 Bradycardia, unspecified | CPT/HCPCS: 93005; 99212 ==

== ENCOUNTER 2025-07-05 07:39 | Outpatient (REF) | payer MEDICARE, SELFPAY ==
--- OUTSIDE RECORDS SUMMARY | 2024-04-23 04:50 | XMS_ITS ---
Author Organization [facility] Address [address] [place] [phone] Care Team Providers Care High Court Justice Name Role Phone JENS HERNÁNDEZ Primary Care Provider Rehan Lund [phone] REASON FOR VISIT colon screening Encounters Encounter Location Date Provider Diagnosis [facility] [place] Out[place] [address], [place] [phone] 04/23/2024 Rehan Gaviria Plan Of Treatment No Information Progress Notes * MIKE MENG DDOB:[birth year] (65 yo M)Acc No.[id number]:04/23/2024 COLON WITH MAC Patient: Michelet PIMENTELMIKE Provider: Jonnie Gaviria MD :1960 A ge:64 Y S ex:Male Date:04/23/2024 Address:[address] [place], [place] [address] [address] [facility] Pcp:JENS HERNÁNDEZ Subjective: * Chief Complaints: * 1 . Colon screening. * Medical History: Objective: * Vitals: Assessment: Plan: * Treatment: * * The named appointment provid er may or may not be the originator of this progress note, and it is not deemed complete until electronically signed by the appointment provider. Sign off status: Pending * Provider: Jonnie Gaviria MD Date: 04/23/2024 Generated for Linda berger/Jose/eTransmitting on: 07/05/2025 07:42 AM EDT
--- OUTSIDE RECORDS SUMMARY | 2025-07-05 07:43 | XMS_ITS | Clinical Summary ---
Author Organization [facility] Address [address] [place] [id number] Care Team Providers Care Industrial Tech Instructor Name Role Phone Kaden Boston Primary Care Provider [phone] Allergies Active Allergy Reactions Criticality Noted Date [...] 1 - PCV) 2023 Influenza Vaccine (#1) 2025 RSV Adult > 60+ Yrs or Pregn ant (1 - 1-dose 75+ series) 2033 Hepatitis B Vaccines Aged Out No long er eligible based on patient's age to complete this topic RSV Ped < 20 months Aged Out No longe r eligible based on patient's age to complete this topic Care Teams Industrial Tech Instructor Relationship Specialty Start Date End Date Kaden Boston [address] [facility], Located Within [facility] [place] [address] PCP - General Family Medicine 12/16/20
--- OUTSIDE RECORDS SUMMARY | 2025-07-05 07:43 | XMS_ITS | Clinical Summary ---
Author Organization [facility] Address [address] [place] [address] Phone Care Team Providers Care Core Cleaner Name Role Phone Kaden Boston NP Primary Care Provider Medical History Medical History Date Comments Hypertension [...] Health Maintenance Due Date Last Done Comments Zoster Vaccines (1 of 2) 2008 Abdominal Aortic Aneurysm (AAA) Screen 10/16/2022 Cholesterol Screening (Lipid Panel) 10/16/2022 Colorectal Cancer Screening: Colonoscopy 10/16/2022 Hepatitis C Screening 10/16/2022 Social Influencers of Health Screening 10/16/2022 Falls Risk Assessment 2023 COVID-19 Vaccine (1 - 2023-2 5 season) 2024 Depression Screening 11/14/2024 Influenza Vaccine (#1) 2025 Hypertension/CHF/CAD Annual BMP Blood Test 01/25/2026 01/25/2025, 05/16/2024 DTaP,Tdap,and Td Vaccines (3 - Td or Tdap) 08/15/2031 08/15/2021, 11/14/2013 RSV Immunization Adult Patients (1 - 1-dose 75+ series) 2033 Pneumococcal [...] age to complete this topic Meningococcal B Vaccine Aged Out No l onger eligible based on patient's age to complete this topic RSV Immunization Patients Under 20 months Aged Out No longer eligible b ased on patient's age to complete this topic Varicella Vaccines Aged Out No longer eligible based on patient's age to complete this topic Care Teams Core Cleaner Relationship Specialty Start Date End Date Kaden Boston NP [address] [facility] MARTY Spears PCP - General Family Medicine 12/16/20
--- OUTSIDE RECORDS SUMMARY | 2025-07-05 07:43 | XMS_ITS ---
Author Name [facility] Organization Unknown History of Medication Use Medication Directions Dispensed Refills Start Date End Date Status meloxicam 15 mg tablet Take 1 tablet every day by oral route as needed for 14 days. 4 active lidocaine (PF) 10 mg/mL (1 %) injection solution Take 5 mL by injection route. 3 09/28/20 23 completed cephalexin 500 mg capsule TAKE 1 CAPSULE BY MOUTH EVERY 6 HOURS START EVENING OF SURGERY 02/15/20 25 completed acetaminophen 325 mg tablet TAKE 2 TABLETS BY MOUTH EVERY 6 HOURS NEEDED FOR PAIN 09/28/20 23 active albuterol sulfate HFA 90 mcg/actuation aerosol inhaler INHALE 2 PUFFS EVERY 4 HOURS NEEDED FOR WHEEZE OR FOR SHORTNESS OF BREATH 09/28/20 23 completed clobetasol 0.05 % topical cream APPLY TOPICALLY TO RASH TWICE DAILY FOR 1 TO 2 WEEKS 09/28/20 23 active clonazepam 0.25 mg disintegrating tablet 23 active clonazepam 0.5 mg tablet TAKE 1 TABLET BY MOUTH AT BEDTIME AND 1/2 TABLET NEEDED FOR ACTING OUT DREAMS 09/28/20 23 active oxycodone 5 mg tablet TAKE 1 TABLET (5 MG TOTAL) BY MOUTH EVERY 4 HOURS NEEDED 09/28/20 23 completed acetaminophen 325 mg tablet TAKE 2 TABLETS BY MOUTH EVERY 6 HOURS NEEDED FOR PAIN active Advair Diskus 500 mcg-50 mcg/dose powder for inhalation active Advair Diskus 500 mcg-50 mcg/dose powder for inhalation active albuterol sulfate HFA 90 mcg/actuation aerosol inhaler active ciprofloxacin 500 mg tablet active clobetasol 0.05 % topical cream APPLY TOPICALLY TO RASH TWICE DAILY FOR 1 TO 2 WEEKS active clonazepam 1 mg tablet TAKE 2 TABLETS BY MOUTH DAILY AT BEDTIME active colchicine 0.6 mg tablet TAKE 1/2 TABLET BY MOUTH DAILY active famotidine 20 mg tablet TAKE 1 TABLET BY MOUTH TWICE A DAY active Laxative (bisacodyl) 5 mg tablet,delayed release TAKE 2 TABLETS BY MOUTH AT 2 PM DAY BEFORE SURGERY DIRECTED active lisinopril 10 mg tablet TAKE 1 TABLET BY MOUTH EVERY DAY active methylprednisolone 4 mg tablets in a dose pack TAKE 6 TABLETS ON DAY 1 DIRECTED ON PACKAGE AND DECREASE BY 1 TAB EACH DAY FOR A TOTAL OF 6 DAYS active ondansetron [address] 1 TABLET TWICE A DAY BY TRANSLINGUAL ROUTE NEEDED, FOR NAUSEA. active oxycodone 5 mg tablet TAKE 1 TABLET BY MOUTH EVERY 6 HOURS NEEDED FOR PAIN active pantoprazole 20 mg tablet,delayed release TAKE 1 TABLET BY MOUTH EVERY DAY active Pepcid AC 20 mg tablet Take 1 tablet twice a day by oral route. active rosuvastatin 20 mg tablet TAKE 1 TABLET BY MOUTH EVERY DAY active rosuvastatin 20 mg tablet active sertraline 100 mg tablet active Allergies Allergen Reaction Severity Comment Documented Date Source Statu s PENICILLINS [facility] Problems Problem Status Onset Date Problem Type Date of Resoluti on Source History of repair of musculotendinous cuff of shoulder active 2025-03-11 ProblemAct [facility] Pain of left shoulder joint active 2024-10-18 ProblemAct [facility] Pain of right shoulder region active 2024-10-19 ProblemAct [facility] Prepatellar bursitis of right knee active 2023-09-15 ProblemAct [facility] 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 ProblemAct [facility] Encounters Encounter Type Encounter Reason Primary Diagnosis Location Date [facility] 04[facility]10[facility]2025 [facility] 03/10/2025 [facility] 03/05/2025 [facility] 02/27/2025 [facility] 02/25/2025 [facility] 02/14/2025 [facility] 02/11/2025 [facility] 02/11/2025 Ambulatory ROUTINE Pain in right shoulder [facility] 02/06/2025 [facility] 01/15/2025 [facility] 01/14/2025 [facility] 01/07/2025 [facility] 12/25/2024 [facility] 12[facility]24/2024 [facility] 12/23/2024 [facility] 12/21/2024 [facility] 11/27/2024 [facility] 11/06/2024 [facility] 11/03/2024 [facility] 10/31/2024 [facility] 10/31/2024 [facility] 10/19/2024 [facility] 10/18/2024 [facility] 09/29/2023 [facility] 09/29/2023 [facility] 09/29/2023 [facility] 09[facility]28/2023 [facility] 09/28/2023 [facility] 09/27/2023 [facility] 09/12/2023 [facility] 09/05/2023 [facility] 09/05/2023 [facility] 06/27/2023 [facility] 06/27/2023 [facility] 06/27/2023 [facility] 06/27/2023 [facility] 06/22/2023 Care Team Organization Name Specialty Phone Email Start Date End Da te [facility] 2024 [facility] 2024
[2025-07-05 10:12] LABS: MANUAL DIFF FLAG NO
[2025-07-05 10:16] LABS: Hematocrit 42.9 % (42.0-52.0); Hemoglobin 14.2 g/dl (14.0-18.0); Imm Gran Abs Auto 0.04 X10*3/uL (0.00-0.03); Imm Gran Pct Auto 0.7 % (0.0-0.4); Lymphocytes Absolute Auto 1.6 X10*3/uL (1.2-4.9); Mean Corpuscular HGB Conc 33.1 g/dl (31.0-36.0); Mean Corpuscular Hemoglobin 29.6 pg (27.0-33.0); Mean Corpuscular Volume 89.6 fL (80.0-98.0); NRBC Abs Auto 0.000 X10*3/uL (0.0-0.012); NRBC Pct Auto 0.0 /100WBC (0.0-0.2); Platelet Count 207 X10*3/uL (160-400); Red Blood Count 4.79 X10*6/uL (4.60-5.80); White Blood Count 5.7 X10*3/uL (4.8-10.8)
[2025-07-05 10:47] LABS: Appearance Urine Turbid; Glucose Urine UA Negative (Negative); PH 5.0 (5.0-9.0); Specific Gravity - Urine 1.020 (1.005-1.025); UMIC TRIGGER UACC YES
[2025-07-05 11:31] LABS: Alanine Aminotransferase 42 U/L (0-40); Albumin Level 4.4 g/dL (3.5-5.0); Alkaline Phosphatase 69 U/L (39-117); Anion Gap 11 (12-20); Aspartate Amino Transferase 47 U/L (5-37); Blood Urea Nitrogen 19 mg/dL (9-16); Calcium 9.4 mg/dL (8.4-10.2); Carbon Dioxide 29 mmol/L (22-29); Chloride 104 mmol/L (96-108); Cholesterol 149 mg/dL (<200); Estimated Glomerular Filt Rate > 60; Ferritin 468 ng/mL (20-250); HDL Cholesterol 46 mg/dL (>40); Potassium 3.8 mmol/L (3.3-5.1); Sodium 140 mmol/L (135-145); Total Protein 7.1 g/dL (6.5-8.0); Triglycerides 127 mg/dL (<150)
== END 2025-07-05 07:40 | disposition home or self-care (01) ==
LOC: HO.HMGCLDS 07:39
PROVIDERS: PCP Nurse Practitioner Family; Visit Provider Nurse Practitioner Family
DX: Z12.5 Encounter for screening for malignant neoplasm of prostate (principal); I10 Essential (primary) hypertension; R79.89 Other specified abnormal findings of blood chemistry
CPT/HCPCS: 36415; 80053; 80061; 81001; 82728; 84153; 84443; 85025

== ENCOUNTER 2025-07-18 13:38 | Outpatient (AMB) | payer MEDICARE, SELFPAY ==
--- OUTSIDE RECORDS SUMMARY | 2024-04-23 04:50 | XMS_ITS ---
Author Organization [facility] Address [address] [place] [phone] Care Team Providers Care Commercial Lines Account Manager Name Role Phone JENS HERNÁNDEZ Primary Care Provider Rehan Lund [phone] REASON FOR VISIT colon screening Encounters Encounter Location Date Provider Diagnosis [facility] [place] [address] [place], [place] [phone] 04/23/2024 Rehan Gaviria Plan Of Treatment No Information Progress Notes * MIKE MENG DDOB:[birth year] (65 yo M)Acc No.[id number]:04/23/2024 COLON WITH MAC Patient: Michelet PIMENTEL MIKE Sow Provider: Jonnie Gaviria MD :1960 A ge:64 Y S ex:Male Date:04/23/2024 Address:[address] [place], [place] [address] [facility] Pcp:JENS HERNÁNDEZ Subjective: * Chief Complaints: * [...] Gaviria MD Date: 04/23/2024 Generated for Linda berger/Fafrances/eTransmitting on: 07/18/2025 02:53 PM EDT
--- OUTSIDE RECORDS SUMMARY | 2024-04-25 05:30 | XMS_ITS ---
Author Organization [facility] Address [address] [place] [phone] Care Team Providers Care Slasher Tender Helper Name Role Phone JENS HERNÁNDEZ Primary Care Provider Rehan Lund [phone] REASON FOR VISIT colon screening Problems Problem Type SNOMED Code ICD Code Onset Dates Problem Status W/U Status Risk Notes Problem Diverticular disease of colon (020582524) Diverticulosis of large intestine without perforation or abscess without bleeding (K57.30) Active confirmed Encounters Encounter Location Date Provider Diagnosis [facility] [place] [address] [place] [phone] 04/25/2024 Rehan Gaviria Encounter for scre ening colonoscopy Z12.11 ; Family history of colon cancer Z80.0 ; Ulcer of intestine K63.3 ; Diverticulosis of large intestine without perforation or abscess without bleeding K57.30 and Internal hemorrhoids K64.8 Assessments Encounter Date Diagnosis (ICD Code) Assessment Notes Treatment Notes Treatment Clinical Notes Section Notes 04/25/2024 Encounter for screening colonoscopy (ICD-10 - Z12.11) 04/25/2024 Family history of colon cancer (ICD-10 - Z80.0) 04/25/2024 Ulcer of intestine (ICD-10 - K63.3) 04/25/2024 Diverticulosis of large intestine without perforation or abscess without bleeding (ICD-10 - K57.30) 04/25/2024 Internal hemorrhoids (ICD-10 - K64.8) Plan Of Treatment No Information Progress Notes * MIKE MENG DDOB:[birth year] (65 yo M)Acc No.[id number]:04/25/2024 COLON WITH MAC Patient: MIKE RKUEGER Provider: Jonnie Gaviria MD :1960 A ge:64 Y S ex:Male Date:04/25/2024 Address:[facility] [address] [place] Pcp:JENS HERNÁNDEZ Subjective: * Chief Complaints: * 1 . Colon screening. * Medical History: Objective: * Vitals: Assessment: * Assessment: 1. E ncounter for screening colonoscopy - Z12.11 (Primary) 2 . F amily history of colon cancer - Z80.0 3 . U lcer of intestine - K63.3 4 .?Diverticulosis of large intestine without perforation or abscess without bleeding - K57.30 5 . I nternal hemorrhoids - K64.8 Plan: * Treatment: * Procedure Codes: 4 5380 COLONOSCOPY AND BIOPSY, Modifiers: PT * * The named appointment provid er may or may not be the originator of this progress note, and it is not deemed complete until electronically signed by the appointment provider. Sign off status: Pending * Provider: Jonnie Gaviria MD Date: 0 04/25/2024 Generated for Linda berger/Jose/Lyndaitting on: 0 07/18/2025 02:53 PM EDT
[2025-07-18 14:17] VITALS: BP 140/80; PULSE 58; TEMP 37.1; O2SAT 96; BMI 26.9
--- NOTE | 2025-07-18 14:17 | A.OFFPC_ITS ---
Vital Signs 07/18/25 14:17 Height 5 ft 9 in Weight 182 lb BMI 26.9 BP 140/80 H Blood Pressure Location Lt brachial Position Sitting Pulse 58 Pulse Source Pulse Oximeter Temp 98.8 F Temp Source Oral Pulse Oximetry (%) 96 Oxygen Delivery Method Room Air Intake Visit Reasons: PE per JG Experimental Physicist Required: No Accompanied by: Self / Same As Patient Allergies erythromycin base (ERYTHROMYCIN BASE) Allergy (Unknown, Verified 07/18/25 14:44) Gastrointestinal Upset penicillin V Allergy (Unknown, Verified 07/18/25 14:44) Gastrointestinal Upset Penicillins (PENICILLINS) Allergy (Unknown, Verified 07/18/25 14:44) Gastrointestinal Upset Medication List - Last Reconciled 07/18/25 by HERLINDA Hicks- clonazepam 1 mg PO DAILY colchicine 0.3 mg (1/2 x 0.6 mg) PO DAILY famotidine 20 mg PO BID 30 days indomethacin 50 mg PO BID PRN 30 days lisinopril 10 mg PO DAILY 90 days pantoprazole 20 mg PO DAILY rosuvastatin 20 mg PO DAILY sertraline 200 mg (2 x 100 mg) PO DAILY Tobacco use date assessed: 07/18/25 Fall risk assessment: No Falls in past year Last assessed Fall Risk: 07/18/25 Dental Screening Dental Screen Date: 07/18/25 Did you have a dental visit in the last 12 months?: Yes Did you have a dental problem in the last 6 months where you did not have access to dental care?: No Was dental information given to patient?: Patient has dentist HPI PE per J HPI Details History of Present Illness The patient is a 65-year-old male presenting for a physical examination and ongoing management of chronic conditions. He has a history of a neuroendocrine tumor of the colon, for which he follows up with [facility]. He also has a history of microscopic hematuria, kidney stones, and prostate health issues, for which he sees a urologist. The patient denies experiencing chest pain, dyspnea, abdominal pain, hematochezia, constipation, or diarrhea. He reports doing well overall and plans to see a photo lab technician for a skin check and an ear nose and throat specialist for knee discomfort, likely related to arthritis or pseudogout. increased liver enzymes: encouraged to slow down the ETOH use (beer) Health Maintenance - Dermatology skin check scheduled - Orthopedic evaluation for knee discomf ort planned - Vaccinations documented and advised to be obtained at pharmacy Social History Review of Systems - Cardiovascular: Denies chest pain - Respiratory: Denies dyspnea - Gastrointestinal: Denies abdominal liyah n, hematochezia, constipation, diarrhea denies any si or hi Physical Exam General: Cooperative, healthy appearing, comfortable, no acute distress and well developed Orientation: Patient oriented x3 Limitations: No limitations Head: Normal to inspection Ears: Hearing grossly normal bilaterally Nose: Normal external nose present Face and sinus: Normal facial exam Eyes: Appearance normal, both eyes and all related structures Neck: Normal visual inspection and Yes full ROM Respiratory: Normal respiratory effort and able to speak in complete sentences. Clear to auscultation bilaterally Cardiovascular: Regular rate and rhythm. Normal S1 and S2 GI: Normal to inspection. Soft to palpation and nontender : Testicles without masses/lesions and no hernias appreciated Skin: Rios complexion. No rashes or lesions noted Neuro: Patient oriented x3 Extremities: Normal to inspection Results 1. Neuroendocrine Tumor Of The Colon The patient continues to follow up with [facility] for management of his neuroendocrine tumor of the colon. 2. Microscopic Hematuria The patient is under the care of a urologist for ongoing management of microscopic hematuria. 3. Kidney Stones The patient is under the care of a urologist for management of kidney stones. 4. Prostate Health Issues The patient is under the care of a urologist for prostate health issues. 5. Knee Discomfort The patient plans to see an ear nose and throat specialist for evaluation of knee discomfort, likely related to arthritis or pseudogout. 6. liver enzymes up encouraged to slow down the ETOH intake Discussion Notes Patient Instructions [facility] Medical History (Updated 07/18/25 @ 15:26 by LEN Hicks) Bladder calculus Pseudogout Primary malignant neuroendocrine tumor of cecum Trigger finger Dupuytren contracture Colon carcinoma Hiatal hernia Elevated PSA Anxiety Hyperlipidemia Obstructive sleep apnea on CPAP Asthma NICOLE (obstructive sleep apnea) Asthmatic bronchitis BPH (benign prostatic hyperplasia) Microscopic hematuria Urethral stricture Surgical History H/O right hemicolectomy Hx of arthroscopy of left knee History of esophagogastroduodenoscopy (EGD) H/O colonoscopy History of tonsillectomy History of appendectomy Family History (Reviewed 07/18/25 @ 15:24 by Kaden Boston SPINNING AND WINDING [facility]PER[facility]) Father HTN (hypertension) Mother No problems noted. Brother Colon cancer Sister No problems noted. Son No problems noted. Daughter No problems noted. Social History (Reviewed 07/18/25 @ 15:24 by HERLINDA HicksENCOM[facility]) Housing: House Alcohol intake: current Alcohol intake frequency: a few times a week Patient Tobacco Use Status: Former Tobacco user Years Smoked: 20 years e-Cigarette/Vaping Use: Never Used Second Hand Smoke Exposure: No service: No Current occupational status: employed Current occupation: [employer] Current occupational exposures/hazards: No Cognitive needs: No Hearing needs: No Vision needs: No Questionnaire PHQ-9 Over the last 2 weeks, how often have you been bothered by any of the following problems? 1. Little interest or pleasure in doing things: not at all 2. Feeling down, depressed, or hopeless: not at all 3. Trouble falling or staying asleep, or sleeping too much: not at all 4. Feeling tired or having little energy: not at all 5. Poor appetite or overeating: not at all 6. Feeling bad about yourself - or that you are a failure or have let yourself or your family down: not at all 7. Trouble concentrating on things, such as reading the newspaper or watching television: not at all 8. Moving or speaking so slowly that other people could have noticed. Or the opposite - being so fidgety or restless that you have been moving around a lot more than usual: not at all 9. Thoughts that you would be better off or of hurting yourself in some way: not at all Total score: 0 Depression Screening Interpretation: Negative Depression Screening Done: Yes 17232 - PHQ-9 Billing: Yes Source: Developed by Drs. Rehan De La Cruz, Dayana Iglesias, Mendez Leigh and colleagues, with an educational reji from [employer]. Thrive Questionnaire Date Thrive assessed: 01/03/25 I am a: Patient What is your living situation today?: I have a steady place to live Within the past 12 months, did the food you bought not last and you didn't have the money to get more?: Never true Within the past 12 months, did you worry whether your food would run out before you got money to buy more?: Never true Do you have trouble paying for medicines?: No Do you have trouble getting transportation to medical appointments?: No Do you have trouble paying your heating and electricity bill?: No Do you have trouble taking care of your child, family member or friend?: No Do you have trouble with day-to-day activities such as bathing, preparing meals, shopping, managing finances, etc.?: No Are you currently unemployed and looking for a job?: No Are you interested in more education?: No Please select the resources that you would like help with: None Currently or been in a relationship where the following occur: No concerns reported THRIVE Score: 0 JAMILAH-7 AMB Questionnaire JAMILAH-7 Date JAMILAH - 7 assessed: 01/10/25 Feeling nervous, anxious, or on edge: 0 = Not at all Not being able to stop or control worryin = Not at all Worrying too much about different things: 0 = Not at all Trouble relaxin = Not at all Being so restless that it is hard to sit still: 0 = Not at all Becoming easily annoyed or irritable: 0 = Not at all Feeling afraid as if something awful might happen: 0 = Not at all Total JAMILAH-7 score (0-4 normal; 5-9 mild; 10-14 moderate; 15-21 severe): 0 Source: Developed by Drs. Rehan De La Cruz, Dayana Iglesias, Mendez Leigh and colleagues, with an educational reji from [employer]. JAMILAH-7 Assessment Billing JAMILAH-7 Assessment Tool: JAMILAH-7 Assessment 22601 Physical exam (Primary Care) Vital Signs: Last Vital Signs Temp 98.8 F 07/18/25 14:17 Pulse 58 07/18/25 14:17 BP 140/80 H 07/18/25 14:17 Pulse Ox 96 07/18/25 14:17 Oxygen Delivery Method Room Air 07/18/25 14:17 BMI result Body Mass Index 26.9 Tobacco/Smoking Status: Tobacco use Status Tobacco use date assessed 07/18/25 07/18/25 14:18 Patient Tobacco Use Status Former Tobacco user 07/18/25 14:18 e-Cigarette/Vaping Use Never Used 07/18/25 14:18 PHQ-9: PHQ-9 Score PHQ-9: Total score 0 07/18/25 14:47 Depression Screening Interpretation: Negative Thrive Assessment: Date of Thrive Assessment Date Thrive assessed 01/03/25 07/18/25 14:18 Currently or been in a relationship where the following occur: No concerns reported Coding Level of Care Code Est Pt Level 3 (19186) Est Pt Prev Care >65y(73582) Diagnoses Encounter for routine adult physical exam with abnormal findings Z00.01 Pseudogout M11.20 Increased liver enzymes R74.8 Primary malignant neuroendocrine tumor of cecum C7A.8 Additional Codes JAMILAH-7 Assessment Billing - JAMILAH-7 Assessment Tool: JAMILAH-7 Assessment 83565 ([id number]) PHQ-9 - 76431 - PHQ-9 Billing: Yes ([id number]) Assessment & Plan Assessment & Plan (1) Encounter for routine adult physical exam with abnormal findings: Code(s): Z00.01 - Encounter for general adult medical examination with abnormal findings Category: Medical (2) Pseudogout: Code(s): M11.20 - Other chondrocalcinosis, unspecified site Category: Medical (3) Increased liver enzymes: Code(s): R74.8 - Abnormal levels of other serum enzymes Category: Medical (4) Primary malignant neuroendocrine tumor of cecum: Code(s): C7A.8 - Other malignant neuroendocrine tumors Category: Medical Plan .
--- OUTSIDE RECORDS SUMMARY | 2025-07-18 14:54 | XMS_ITS | Patient Health Record ---
Author Organization [facility] Address [address] [place] [address] Care Team Providers Care Yield Loss Inspector Name Role Phone JENS HERNÁNDEZ Primary Care Provider Rehan Lund [phone] Allergies Allergen (clinical drug ingredient) Drug/Non Drug Allergy documented on EMR Reaction Allergy Type Onset Date Status penicillamine Penicillamine Unknown Drug Allergy Active erythromycin Erythromycin Unknown Drug Allergy A ctive Reason For Referral No Information Medications Medication SIG (Take, Route, Frequency, Duration) Notes [...] 1 tablet Orally Once a day Active Immunizations Vaccine Route Administration Date Status Comme nts Influenza Unknown 11/15/2018 Refused Influenza Unknown 01/18/2024 Refused Social History Tobacco Use: Social History Observation Description Date Details (start date - stop date) Former Smoker NA - NA Tobacco Use/Smoking Question Answer Notes Patient is [...] Weekly (3 points) Points 4 Interpretation Positive Section Notes: Nonsmoker > 10 yrs; Drinks 4 beers QD Nonsmoker > 10 yrs; Drinks b eer--he loves his beer --amounts can vary Nonsmoker > 10 yrs; Drinks b eer--he loves his beer --amounts can vary Problems Problem Type SNOMED Code ICD Code Onset Dates Problem Status W/U Status Risk Notes Problem 403692520 Encounter for screening for malignant neoplasm of colon (Z12.11) Active confirmed Problem Malignant neuroendocrine tumor (583290653029629) Other malignant neuroendocrine tumors (C7A.8) Active confirmed Problem Diverticular disease of colon (843321568) Diverticulosis of large intestine without perforation or abscess without bleeding (K57.30) Active confirmed Problem 223212345 Gastroesophageal reflux disease without esophagitis (K21.9) Active confirmed Problem 385505566 Family history o f colon cancer (Z80.0) Active confirmed Problem Serum ferritin high (275955754) Elevated ferritin (R79.89) Active confirmed Problem 93755988 Esophageal dysphagia (R13.10) Active confirmed Encounters Encounter Location Date Provider Diagnosis [facility] [address] [place] [address] 09/05/2024 Rehan Gaviria Plan Of Treatment Future Test Test Name Order Date UPPER GI ENDOSCOPY BALLOOON DILATION OF ESOPH 11/15/2018 COLONOSCOPY 11/15/2018 COLONOSCOPY 01/18/2024 Insurance Providers Payer Name Payer Address Payer Phone Subscriber Number Group Number Insured Name Patient Relationship to Insured Coverage Start Date Coverage End Date [facility] [address] [place], [place] [id number] MIKE MENG Self - patient is the insured Medical (General) History Medical History History ICD Code Denies [place],DM,CVA,Lung disease,renal dise ase Negative screening colonoscopy in [...]
--- OUTSIDE RECORDS SUMMARY | 2025-07-18 14:54 | XMS_ITS | Encounter Summary ---
Author Organization [facility] Address [address] [place] [address] Phone Care Team Providers Care Order Runner Name Role Phone Kaden Boston NP Primary Care Provider + Rehan Gaivria MD Unavailable [phone] Jeffery Wells MD Unavailable [phone] Stewart Munoz MD, MPH Unavailable [phone] Encounter Details Date Type Department Care Team (Late st Contact Info) Description 05/16/2024 Procedure Pass [facility] [place] [address] [address] Social History Tobacco Use Types Packs/Day Years Used Date Smoking Tobacco: Former Cigarettes Comments:Dallin 20+ years ago Alcohol Use Standard Drinks/Week Comments Yes 0 (1 standard drink = 0.6 oz pur e alcohol) Child or Family Care Answer Date Record ed Do you have problems with on e of the following making it difficult for you to work, study, or receive health care? No 05/17/2024 Education Answer Date Recorded Are you interested in more education? Not on charles e 05/03/2024 Are you concerned about learning? Not on file 05/03/2024 No 05/03/2024 No 05/03/2024 Food Answer Date Recorded Within the past 6 months we worried whether our food would run out before we got money to buy more. Never True 05/17/2024 Within the past 6 months the food we bought just didn't last and we didn't have enough money to get more. Never True Residential Stability Answer Date Recor ded What is your housing situation today? I have alfonzo garcia 05/17/2024 How many times have you move d in the past 12 months? Zero (I did not move) 05/17/2024 Paying for Meds Answer Date Recorded Do you have trouble paying for medicines? Yes 05/17/2024 Paying Utility Bills Answer Date Record ed Do you have trouble paying your heating or elect ricity bill? No 05/17/2024 Transportation Answer Date Recorded Has the lack of transportati on kept you from medical appointments or from getting medications? No 05/17/2024 Digital Access Answer Date Recorded No 05/03/2024 No 05/03/2024 Reliable internet access at home? Not on file 05/03/2024 Device with a working camera? Not on file Sex and Gender Information Value Date Recorded Sex Assigned at Male 05/03/2024 11:42 AM EDT Legal Sex Male 11:34 AM EDT Gender Identity Male 05/03/2024 11:42 AM EDT Sexual Orientation Straight 05/03/2024 11 :42 AM EDT documented as of this encounter Plan of Treatment Upcoming Encounters Date Type Department Care Team (Late st Contact Info) Description 01/25/2025 Procedure Pass [facility] Imaging Department, [facility], [place] [address] [facility], [facility] [address] [place] [address] 01/25/2025 Procedure Pass [facility] Imaging Department, [facility], [place] [address] [facility], [place] [address] [place] [address] 08/09/2025 6:45 AM EDT Blood Draw [facility] Imaging Department, [facility], Imaging [id number] [address] [facility], [place] [address] [place] [address] Jeffery Wells MD 450 [place] [address] Meg@[email or web address] 08/09/2025 7:50 AM EDT Appointment [facility], [facility], [place] [address] [facility], [place] [address] [place] [address] Stewart Munoz MD, MPH [address] [place] [address] [email or web address] 08/09/2025 10:00 AM EDT Office [facility], [facility] [address] [facility], 10th [place] [address] Stewart Munoz MD, MPH [address] [place] [address] SARABJIT@[facility] Jeffery Wells MD [address] [place] [address] Meg@[facility] documented as of this encounter Visit Diagnoses Not on filedocumented in this encounter Care Teams Order Runner Relationship Specialty Start Date End Date Kaden Boston NP [address] [facility] [place] [address] PCP - General Nurse Practitioner 05/03/24 Rehan Gaviria MD [address] [place] [address] Drive [address] [place] [address] Gastroenterology 05/03/24 Jeffery Wells MD [address] [place] [address] [email or web address] Medical Oncology 05/03/24 Stewart Munoz MD, MPH [address] [place] [address] [email or web address] Surgical Oncology 05/03/24 documented as of this encounter Additional Source Comments The information contained in this document represents components of the legal health record. It is not the complete legal health record.[facility]
--- OUTSIDE RECORDS SUMMARY | 2025-07-18 14:54 | XMS_ITS | Encounter Summary ---
Author Organization [facility] Address [address] [place] [address] [place] [address] Phone Care Team Providers Care Armature Winder Helper Repair Name Role Phone Kaden Boston NP Primary Care Provider + Rehan Gaviria MD Unavailable [phone] Jeffery Wells MD Unavailable [phone] Stewart Munoz MD, MPH Unavailable [phone] Encounter Details Date Type Department Care Team (Late st Contact Info) Description 07/27/2024 Procedure Pass [facility], [facility] [place] [place] 450 [facility], Floor [address] [place] [address] Social History Tobacco Use Types Packs/Day Years Used Date Smoking Tobacco: Former Cigarettes Smokeless Tobacco: Never Comments:Quit 20+ years ago Alcohol Use Standard Drinks/Week Comments Yes 7 (1 standard drink = 0.6 oz pure alcohol) Was drinking more but then decreased. Child or Family Care Answer Date Record [...] with a working camera? Not on file Intimate Partner Violence Answer Date R ecorded Are you denied basic needs s uch as food, clothing, or medical care? No 06/20/2024 In the past 12 months have y ou been in a relationship with a person who hurts, threatens, or tries to control you? No 06/20/2024 Are you denied basic needs s uch as food, clothing, or medical care? No 06/20/2024 In the past 12 months have y ou been in a relationship with a person who hurts, threatens, or tries to control you? No 06/20/2024 Sex and Gender Information Value Date Recorded Sex Assigned at Male 05/03/2024 11:42 AM EDT Legal Sex Male 11:34 AM EDT Gender Identity Male 05/03/2024 11:42 AM EDT Sexual Orientation Straight 05/03/2024 11 :42 AM EDT documented as of this encounter Plan of Treatment Upcoming Encounters Date Type Department Care Team (Late st Contact Info) Description 01/25/2025 Procedure Pass [facility] Imaging Department, [facility] [place] [address] [facility], Floor [address] [place], [place] [address] 01/25/2025 Procedure Pass [facility] Department, [facility], [place] [address] [facility], [address] [place] [address] 08/09/2025 6:45 AM EDT Blood Draw [facility] Imaging Department, [facility], Imaging [id number]-Hvvp [address] [facility], [place] [address] [place] [address] Jeffery Wells MD [address] [place] [address] [email or web address] 08/09/2025 7:50 AM EDT Appointment [facility] Department, [facility], [place] [address] [facility], Floor [address] [place] [address] Stewart Munoz MD, MPH [address] [place] [phone] [email or web address]@[facility] 08/09/2025 10:00 AM EDT Office Visit [facility], [facility] 450 [facility], 10th [place] [address] Stewart Munoz MD, MPH [address] [place] [address] SARABJIT@[facility] Jeffery Wells MD [address] [place] [address] [email or web address] documented as of this encounter Visit Diagnoses Not on filedocumented in this encounter Care Teams Armature Winder Helper Repair Relationship Specialty Start Date End Date Kaden Boston NP [facility] [place] [address] PCP - General Nurse Practitioner 05/03/24 Rehan Gaviria MD [address] [place] [address] Drive [address] [place] [address] Gastroenterology 05/03/24 Jeffery Wells MD [address] [place] [address] Meg@[facility] Medical Oncology 05/03/24 Stewart Munoz MD, MPH [address] [place] [address] [email or web address] Surgical Oncology 05/03/24 documented as of this encounter Additional Source Comments The information contained in this document represents components of the legal health record. It is not the complete legal health record.[facility]
--- OUTSIDE RECORDS SUMMARY | 2025-07-18 14:54 | XMS_ITS | Clinical Summary ---
Author Organization [facility] Address [address] [place] [address] Phone Care Team Providers Care Brake Repair Supervisor Name Role Phone Kaden Boston NP Primary Care Provider [phone] Medical History Medical History Date Comments Hypertension [...] age to complete this topic Care Teams Brake Repair Supervisor Relationship Specialty Start Date End Date Kaden Boston NP [address] [facility] M[place]Y [place] PCP - General Family Medicine 12/16/20
--- OUTSIDE RECORDS SUMMARY | 2025-07-18 14:54 | XMS_ITS | Encounter Summary ---
Author Organization [facility] Address [address] [place] [address] [place] [address] Phone Care Team Providers Care Office Worker Name Role Phone Kaden Boston NP Primary Care Provider + Rehan Gaviria MD Unavailable [phone] Jeffery Wells MD Unavailable [phone] Stewart Munoz MD, MPH Unavailable [phone] Encounter Details Date Type Department Care Team (Late st Contact Info) Description 07/27/2024 Procedure Pass [facility], [facility] [place], [place] [address] [facility], [place] [address] [place] [address] Social History Tobacco Use Types Packs/Day Years [...] Contact Info) Description 01/25/2025 Procedure Pass [facility] Imaging Department, [facility] [place] [address] [facility], Floor [address]1 [place], [place] [address] 01/25/2025 Procedure Pass [facility] Imaging Department, [facility], [place] [address] [facility], [place] [address] [place] [address] 08/09/2025 6:45 AM EDT Blood Draw [facility] Imaging Department, [facility], Imaging Vihry-fl-Peuj [address] [facility], [place] [address] [place] [address] Jeffery Wells MD [address] [place] [phone] Meg@[email or web address] 08/09/2025 7:50 AM EDT Appointment [facility] Imaging Department, [facility], [place] [address] [facility], [place] [address] [place] [address] Stewart Munoz MD, MPH [address] [place] [address] SARABJIT@[facility] 08/09/2025 10:00 AM EDT Office Visit [facility], [facility] 450 [facility], 10th [place] [address] Stewart Munoz MD, MPH [address] [place] [address] [email or web address]@[facility] Jeffery Wells MD [address] [place] [address] Meg@[facility] documented as of this encounter Visit Diagnoses Not on filedocumented in this encounter Care Teams Office Worker Relationship Specialty Start Date End Date Kaden Boston NP [facility] [place] [address] PCP - General Nurse Practitioner 05/03/24 Rehan Gaviria MD [address] [place] [address] Drive [address] [place] [address] Gastroenterology 05/03/24 Jeffery Wells MD [address] [place] [address] Meg@[email or web address] Medical Oncology 05/03/24 Stewart Munoz MD, MPH [address] [place] [address] [email or web address] Surgical Oncology 05/03/24 documented as of this encounter Additional Source Comments The information contained in this document represents components of the legal health record. It is not the complete legal health record.[facility]
--- OUTSIDE RECORDS SUMMARY | 2025-07-18 14:54 | XMS_ITS | Encounter Summary ---
Author Organization [facility] Address [address] [place] [address] [place] [address] Phone Care Team Providers Care Critical Care Rn Name Role Phone Kaden Boston NP Primary Care Provider + Rehan Gaviria MD Unavailable [phone] Jeffery Wells MD Unavailable [phone] Stewart Munoz MD, MPH Unavailable [phone] Encounter Details Date Type Department Care Team (Late st Contact Info) Description 06/20/2024 Procedure Pass [facility] Periop [address] [place] [address] Social History Tobacco Use Types Packs/Day Years [...] AM EDT documented as of this encounter Functional Status * Calculated C-SSRS Risk Score (Lifetime/Recent) Answer Date of Assessment Author No Risk Indicated 06/20/2024 5:00 PM EDT Марина Ernandez RN * [place] Suicide Severity Rating Scale (Screener/Recent Self-Report) Question Answer Date of Assessment Author 1. Wish to be (Past 1 Month) No 06/20/2024 5:00 PM EDT Марина Ernandez RN 2. Non-Specific Active Suicidal Thoughts (Past 1 Month) No 06/20/2024 5:00 PM EDT Марина Ernandez, YOHANNES 6. Suicidal Behavior (Lifetime) No 06/20/2024 5:00 PM EDT Марина Ernandez, RN documented as of this encounter Plan of Treatment Upcoming Encounters Date Type Department Care Team (Late st Contact Info) Description 01/25/2025 Procedure Pass [facility] Imaging Department, [facility] [place] [address] [facility], Floor [address]1 [place] [address] 01/25/2025 Procedure Pass [facility] Imaging Department, [facility] [place] [address] [facility], [facility] [address]1 [place] [address] 08/09/2025 6:45 AM EDT Blood Draw [facility] Imaging Department, [facility], Imaging Steyi-pu-Gfsr [address] [facility], Floor [address] [place] [address] Jeffery Wells MD [address] [place] [address] [email or web address] 08/09/2025 7:50 AM EDT Appointment [facility] [place] Imaging Department, [facility], [place] [address] [facility], [facility] [address] [place] [address] Stewart Munoz MD, MPH [address] [place] [phone] SARABJIT@[email or web address] 08/09/2025 10:00 AM EDT Office Visit [facility], [facility] [address] [facility], [address] [place] [address] Stewart Munoz MD, MPH [address] [place] [address] [email or web address] Jeffery Wells MD [address] [place] [address] Meg@[facility] documented as of this encounter Visit Diagnoses Not on filedocumented in this encounter Care Teams Critical Care Rn Relationship Specialty Start Date End Date Kaden Boston NP [address] [facility] [place] [address] PCP - General Nurse Practitioner 05/03/24 Rehan aGviria MD [address] [place] [address] [place] [address] Gastroenterology 05/03/24 Jeffery Wells MD [address] [place] [address] Meg@[facility] Medical Oncology 05/03/24 Stewart Munoz MD, MPH [address] [place] [address] [email or web address] Surgical Oncology 05/03/24 documented as of this encounter Additional Source Comments The information contained in this document represents components of the legal health record. It is not the complete legal health record.[facility]
--- OUTSIDE RECORDS SUMMARY | 2025-07-18 14:54 | XMS_ITS | Encounter Summary ---
Author Organization [facility] Address [address] [place] [address] Phone Care Team Providers Care Automatic Line Set Up Mechanic Name Role Phone Kaden Boston NP Primary Care Provider + Rehan Gaviria MD Unavailable [phone] Jeffery Wells MD Unavailable [phone] Stewart Munoz MD, MPH Unavailable [phone] Encounter Details Date Type Department Care Team (Late st Contact Info) Description 05/16/2024 Procedure Pass [facility] [place] [address] [address] Social History Tobacco Use Types [...] st Contact Info) Description 01/25/2025 Procedure Pass [facility] Imaging Department, [facility], [place] [address] [facility], [facility] L1 [place] [address] 01/25/2025 Procedure Pass [facility] Imaging Department, [facility], [place] [address] [facility], Floor [address]1 [place] [address] 08/09/2025 6:45 AM EDT Blood Draw [facility] Imaging Department, [facility], Imaging Eimzg-hw-Rpvn [address] [facility], Floor [address]1 [place] [address] Jeffery Wells MD [address] [place] [address] Meg@[email or web address] 08/09/2025 7:50 AM EDT Appointment [facility], [facility], [place] [address] [facility], Floor [address] [place] [address] Stewart Munoz MD, MPH [address] [place] [address] [email or web address]@[email or web address] 08/09/2025 10:00 AM EDT Office Visit [facility], [facility] [address] [facility], 10th [place] [address] Stewart Munoz MD, MPH [address] [place] [address] [email or web address] Jeffery Wells MD [address] [place] [address] Meg@[facility] documented as of this encounter Visit Diagnoses Not on filedocumented in this encounter Care Teams Automatic Line Set Up Mechanic Relationship Specialty Start Date End Date Kaden Boston NP [address] [facility] [place] [address] PCP - General Nurse Practitioner 05/03/24 Rehan Gaviria MD [address] [place] [address] Drive [address] [place] [address] Gastroenterology 05/03/24 Jeffery Wells MD [address] [place] [address] [email or web address] Medical Oncology 05/03/24 Stewart Munoz MD, MPH [address] [place] [address] [email or web address] Surgical Oncology 05/03/24 documented as of this encounter Additional Source Comments The information contained in this document represents components of the legal health record. It is not the complete legal health record.[facility]
--- OUTSIDE RECORDS SUMMARY | 2025-07-18 14:54 | XMS_ITS | Clinical Summary ---
Author Organization [facility] Address [address] [place] [address] Care Team Providers Care Mixer Crane Operator Name Role Phone Kaden Boston Primary Care Provider [phone] Allergies Active Allergy Reactions Criticality Noted Date [...] age to complete this topic Care Teams Mixer Crane Operator Relationship Specialty Start Date End Date Kaden Boston [address] [facility] [place] [address] PCP - General Family Medicine 12/16/20
--- OUTSIDE RECORDS SUMMARY | 2025-07-18 14:54 | XMS_ITS | Clinical Summary ---
Author Organization [facility] Address [address] [place] [address] Phone Care Team Providers Care Loan Operations Manager Name Role Phone Kaden Boston NP Primary Care Provider + Rehan Gaviria MD Unavailable [phone] Jeffery Wells MD Unavailable [phone] Stewart Munoz MD, MPH Unavailable [phone] Allergies Active Allergy Reactions Criticality Noted Date Comments Erythromycin GI Upset,Other (See Comments) High 11/12/2019 Penicillins Itching,Other (See Comments) High 11/12/2019 Other Reaction(s): Erythromycin allergy Medications sertraline (ZOLOFT) 100 MG tablet Take 200 mg by mouth daily. Active rosuvastatin (CRESTOR) 20 MG tablet Take 20 mg by mouth daily. Active pantoprazole (PROTONIX) 40 MG tablet Take 40 mg by mouth daily. Active lisinopril (PRINIVIL,ZESTR IL) 10 MG tablet Take 10 mg by mouth daily. Active clonazePAM (KLONOPIN) 1 MG tablet Take 1 tablet by mouth nightly at bedtime. 04/11/2024 Active colchicine (COLCRYS) 0.6 mg tablet Take 0.5 tablets by mouth every morning. 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 I have alfonzo sing 05/17/2024 How many times have you move [...] Orientation Straight 05/03/2024 11 :42 AM EDT Last Filed Vital Signs Vital Sign Reading Time Taken Comments Blood Pressure 179/83 01/25/2025 8:46 AM EDT Pulse 54 01/25/2025 8:46 AM EDT Temperature 36.4 C (97.5 F) 01/25/2025 8:46 AM EDT Respiratory Rate 16 01/25/2025 8:46 AM EDT Oxygen Saturation 98% 01/25/2025 8:46 AM EDT Inhaled Oxygen Concentration - - Weight 83.2 kg (183 lb 6.8 oz) 01/25/2025 8:46 A M EDT Height 174.4 cm (5' 8.66 ) 01/25/2025 8:46 AM ED T Body Mass Index 27.35 01/25/2025 8:46 AM EDT Plan of Treatment Upcoming Encounters Date Type Department Care Team (Late st Contact Info) Description 01/25/2025 Procedure Pass [facility] Imaging Department, [facility] [place], [place] [address] [facility], [facility] [address] [place] [address] 01/25/2025 Procedure Pass [facility] Imaging Department, [facility] [place] [address] [facility] [employer], [address] [place] [address] 08/09/2025 6:45 AM EDT Blood Draw [facility] Imaging Department, [facility] [place], Imaging [id number] [address] [facility], [place] [address] [place] [address] Jeffery Wells MD 450 [place] [address] [email or web address] 08/09/2025 7:50 AM EDT Appointment [facility], [facility] [place] [address] [facility] [employer], [address] [place] [address] Stewart Munoz MD, MPH [address] [address] [email or web address] 08/09/2025 10:00 AM EDT Office Visit [facility], [facility] [place] 450 [facility], 10th [place] [address] Stewart Munoz MD, MPH [address] [place] [address] [email or web address] Jeffery Wells MD 450 [place] [address] Meg@[email or web address] Health Maintenance Due Date Last Done Comments LIPID PANEL 1958 DEPRESSION SCREENING 1970 SMOKING Hx and SMOKELESS TOBACCO SCREENING 1971 HEPATITIS C SCREENING 1976 COLOGUARD 2003 COLONOSCOPY 2003 COLORECTAL CANCER SCREENING 2003 FIT TEST 2003 FOBT 2003 SIGMOIDOSCOPY 2003 VIRTUAL COLONOSCOPY 2003 ZOSTER VACCINES (1 of 2) 2008 COVID-19 VACCINE ( season) 2024 INFLUENZA VACCINE (#1) 2025 CREATININE LEVEL 01/25/2026 01/25/2025, 08/2024, 06/21/2024, Additional history exists POTASSIUM LEVEL 01/25/2026 01/25/2025, 06/14, 06/21/2024, Additional history exists SCREENING FOR DIABETES 01/26/2028 01/25/2025 Adult Td,Tdap Booster 08/15/2031 08/15/2021, 014 RSV VACCINE (1 - 1-dose 75+ series) 2033 PNEUMOCOCCAL VACCINES (50+ years) Completed 03/24/2023 ABDOMINAL AORTIC ANEURYSM (AAA) SCREENING Completed 01/25/2025, 05/16/2024 HEPATITIS A VACCINES Aged Out No long er eligible based on patient's age to complete this topic HIB VACCINES Aged Out No longer eligi ble based on patient's age to complete this topic MENINGOCOCCAL VACCINES (ACWY) Aged Out No longer eligible based on patient's age to complete this topic MENINGOCOCCAL VACCINES (B) Aged Out N o longer eligible based on patient's age to complete this topic Medical Devices Not on file Procedures Procedure Name Priority Date/Time Associated Diagnosis Comments CT ABDOMEN/PELVIS WITH CONTRAST Routine 01/25/2025 8:35 AM EDT Neuroendocrine neoplasm of small intestine COMPREHENSIVE METABOLIC PANEL Routine 01/25/2025 7:04 AM EDT Neuroendocrine neoplasm of small intestine from Last 3 Months or Most Recently Relevant to Health Maintenance Results * CT ABDOMEN/PELVIS WITH CONTRAST (01/25/2025 8:35 AM EDT) Anatomical Region Laterality Modality Abdomen, Pelvis Computed Tomogra phy Other 01/25/2025 8:56 AM EDT Impressions 01/25/2025 11:35 AM EDT 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 1. No metastatic disease in the abdomen/pelvis. 2. Right-sided peritoneal thickening/fat stranding which is most likely postsurgical. ATTESTATION: Aidan Savage, as teaching physician have reviewed the images, if any, for this patient's exam, and if necessary, have edited the report originally created by John Figueroa. 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 Surgical margins were negative. There was evidence of small vessel lymphovascular and perineural invasion. Five of the 28 regional lymph nodes resected were positive for involvement. The tumor was staged pT2N1. Laparoscopic assisted right hemicolectomy on 06/20/2024. TECHNIQUE: Multidetector-row CT of the abdomen and pelvis was performed after administration of intravenous contrast using tailored dose modulation techniques. Images were reconstructed in the axial, coronal, and sagittal planes. COMPARISON: TN PET CT NEUROENDOCRINE TUMOR LOCALIZATION FINDINGS: Lower Chest: CT chest from the same day is reported separately. Liver: No focal lesions. Biliary: No calcified gallstones or biliary ductal dilatation. Spleen: No splenomegaly or focal lesions. Pancreas: No masses or ductal dilatation. Adrenal Glands: No nodules. Kidneys/Ureters: No solid masses, stones, or hydronephrosis. Bowel: Status post right hemicolectomy with ileocolic anastomosis and surrounding postsurgical changes in the right hemiabdomen. Peritoneum/Retroperitoneum: Fat stranding. Thickening and nodularity along the right paracolic gutter, most likely postsurgical. Lymph Nodes: No enlarged abdominopelvic lymph nodes. Few subcentimeter nancy hepatic lymph nodes, likely reactive. Pelvic Organs/Bladder: No pelvic mass. TURP defect in the prostate. Bilateral vasectomy clips. 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 Aortobiiliac atherosclerosis. No abdominal aortic aneurysm. Bones/Soft Tissues: Surgical changes in the anterior abdominal wall. Multilevel discovertebral degenerative changes of the lumbar spine with grade 1 retrolisthesis of L2 on L3 and L3 on L4. No destructive bone lesion. Procedure Note Aidan Drummond MD - 01/25/2025 CT ABDOMEN/PELVIS WITH CONTRAST Referring clinician's provided indication for this examination in Epic: *Neuroendocrine tumor (NET), gastrointestinal, monitor; SB NET,surveillance Review of the Electronic Medical Record reveals an additional history of:1.7 cm well-differential neuroendocrine tumor, WHO grade 1 of 3, arisingfrom the ileocecal valve. Surgical margins were negative. There wasevidence of small vessel lymphovascular and perineural invasion. Five ofthe 28 regional lymph nodes resected were positive for involvement. Thetumor was staged pT2N1. Laparoscopic assisted right hemicolectomy on06/20/2024. TECHNIQUE: Multidetector-row CT of the abdomen and pelvis was performedafter administration of intravenous contrast using tailored dosemodulation techniques. Images were reconstructed in the axial, coronal,and sagittal planes. COMPARISON: TN PET CT NEUROENDOCRINE TUMOR LOCALIZATION FINDINGS: Lower Chest: CT chest from the same day is reported separately. Liver: No focal lesions. Biliary: No calcified gallstones or biliary ductal dilatation. Spleen: No splenomegaly or focal lesions. Pancreas: No masses or ductal dilatation. Adrenal Glands: No nodules. Kidneys/Ureters: No solid masses, stones, or hydronephrosis. Bowel: Status post right hemicolectomy with ileocolic anastomosis andsurrounding postsurgical changes in the right hemiabdomen. Peritoneum/Retroperitoneum: Fat stranding. Thickening and nodularity alongthe right paracolic gutter, most likely postsurgical. Lymph Nodes: No enlarged abdominopelvic lymph nodes. Few subcentimeterporta hepatic lymph nodes, likely reactive. Pelvic Organs/Bladder: No pelvic mass. TURP defect in the prostate.Bilateral vasectomy clips. Vessels: Anatomic variant of a replaced common hepatic artery from thesuperior mesenteric artery. Aortobiiliac atherosclerosis. No abdominalaortic aneurysm. Bones/Soft Tissues: Surgical changes in the anterior abdominal wall.Multilevel discovertebral degenerative changes of the lumbar spine withgrade 1 retrolisthesis of L2 on L3 and L3 on L4. No destructive bonelesion. IMPRESSION: Baseline study status post right hemicolectomy for grade 1 cecalneuroendocrine tumor. 1. No metastatic disease in the abdomen/pelvis. 2. Right-sided peritoneal thickening/fat stranding which is most likelypostsurgical. ATTESTATION: Aidan Savage, as teaching physician have reviewed theimages, if any, for this patient's exam, and if necessary, have edited thereport originally created by John Figueroa. us Jeffery Wells MD IMG CT ABD/PELVIS Final Res ult * (ABNORMAL) Comprehensive metabolic panel (01/25/2025 7:04 AM EDT) SODIUM 141 136 - 145 mmol/L [facility] LIC# [id number] POTASSIUM 4.3 3.4 - 5.1 mmol/L [facility] LIC# [id number] CHLORIDE 104 98 - 107 mmol/L [facility] LIC# [id number] CO2 26 22 - 31 mmol/L [facility] LIC# [id number] BUN 23 6 - 23 mg/dL [facility] LIC# [id number] CREATININE 0.98 0.50 - 1.20 mg/dL [facility] LIC# [id number] GLUCOSE 108(H) 70 - 100 mg/dL [facility] LIC# [id number] ALBUMIN 4.5 3.5 - 5.2 g/dL [facility] LIC# [id number] TOTAL PROTEIN 7.2 6.4 - 8.3 g/dL [facility] LIC# [id number] CALCIUM 9.5 8.8 - 10.7 mg/dL [facility] LIC# [id number] ALKALINE PHOSPHATASE 83 40 - 129 U/L [facility] LIC# [id number] TOTAL BILIRUBIN 0.5 0.2 - 1.2 mg/dL [facility] LIC# [id number] AST 48(H) <41 U/L [facility] LIC# [id number] ALT 40 <42 U/L [facility] LIC# [id number] GLOBULIN 2.7 2.3 - 4.2 g/dL [facility] LIC# [id number] EGFR 85 >59 mL/min/1.7 3m2 [facility] LIC# [id number] Comment:Estimated glomerular filtration rate calculated using the CKD-EPI refit equation. ANION GAP 11 7 - 17 mmol/L [facility] LIC# [id number] Blood 01/25/2025 7:04 AM EDT 01/25/2025 7:11 AM EDT us Jeffery Wells MD LAB BLOOD ORDERABLES Final Result [facility] LIC# [id number] [place] [address] from Last 3 Months or Most Recently Relevant to Health Maintenance Insurance MEDICARE PPO BLUE REPLACEMENT MEDICARE PART A & B MEDICARE PPO BLUE REPLACEMENT MEDICARE PART A & B MEDICARE PPO BLUE REPLACEMENT MEDICARE PART A & [place] [address] [place] [address] MEDICARE PPO BLUE REPLACEMENT MEDICARE PART A & B MEDICARE PPO BLUE REPLACEMENT MEDICARE PART A & B MEDICARE PPO BLUE REPLACEMENT MEDICARE PART A & B Care Teams Loan Operations Manager Relationship Specialty Start Date End Date Kaden Boston NP [facility] [place] [address] PCP - General Nurse Practitioner 05/03/24 Rehan Gaviria MD [address] [place] [address] [place] [address] Gastroenterology 05/03/24 Jeffery Wells MD [address] [place] [address] [email or web address] Medical Oncology 05/03/24 Stewart Munoz MD, MPH [address] [place] [address] [email or web address] Surgical Oncology 05/03/24 Additional Source Comments The information contained in this document represents components of the legal health record. It is not the complete legal health record.[facility]
== END 2025-07-18 15:24 | disposition home or self-care (01) ==
LOC: HO.HMCC 13:39
PROVIDERS: PCP Nurse Practitioner Family; Visit Provider Nurse Practitioner Family
DX: Z00.01 Encounter for general adult medical examination with abnormal findings (principal); M11.20 Other chondrocalcinosis, unspecified site; R74.8 Abnormal levels of other serum enzymes; C7A.8 Other malignant neuroendocrine tumors

== ENCOUNTER → 2025-07-18 13:38 | Outpatient (BNVA) | payer MEDICARE, SELFPAY | PROVIDERS: PCP Nurse Practitioner Family; Visit Provider Nurse Practitioner Family | DX: Z00.01 Encounter for general adult medical examination with abnormal findings (principal); M11.20 Other chondrocalcinosis, unspecified site; R31.29 Other microscopic hematuria; R74.8 Abnormal levels of other serum enzymes; C7A.8 Other malignant neuroendocrine tumors; N20.0 Calculus of kidney | CPT/HCPCS: 96127; 99397 ==

== ENCOUNTER → 2025-11-01 07:11 | Outpatient (BNV) | payer MEDICARE, SELFPAY | PROVIDERS: PCP Nurse Practitioner Family; Visit Provider Radiology Diagnostic Radiology | DX: M47.813 Spondylosis without myelopathy or radiculopathy, cervicothoracic region (principal) | CPT/HCPCS: 72141 ==

== ENCOUNTER 2025-11-01 07:12 | Outpatient (REF) | payer MEDICARE, SELFPAY ==
--- NOTE | ~2025-11-01 | MR_ITS ---
EXAMINATION: MR CERVICAL SPINE WITHOUT CONTRAST CLINICAL INFORMATION: R20.0. Anesthesia of skin. COMPARISON: December 21, 2010 is not available on PACS. TECHNIQUE: MRI of the cervical spine was obtained using routine sequences without contrast. FINDINGS: Craniocervical junction is intact. Normal position of the cerebellar tonsils. Bone marrow STIR signal at the vertebral bodies of C6, C7 and to a lesser extent inferior endplate of C5. Bone marrow STIR signal in the left facet of C7. Volume loss of the vertebral bodies, likely 40% at C6 and to a lesser extent C5 and C7. Multilevel marginal osteophyte formation and decreased intervertebral disc height and signal from C5 to C7 and to a lesser extent C7-T1 and C4-5. Reverse curvature apex at C6. Grade 1 anterolisthesis C7-T1. Grade 1 retrolisthesis C6-7. Buckling deformity of the dorsal aspect of the thecal sac likely related to ligamentum flavum hypertrophy at C6-7. Cervical spinal cord signal is normal. C2-3: No disc herniation. No neuroforamina stenosis. C3-4: Right-sided broad-based disc osteophyte complex formation. No cord compression. Bilateral neuroforamina narrowing on a degenerative basis. C4-5: Broad-based disc osteophyte complex formation. No cord compression. Bilateral neuroforamina narrowing on a degenerative basis. C5-6: Broad-based disc osteophyte compresses formation resulting in ventral deformity of the spinal cord. Bilateral neuroforamina stenosis on a degenerative basis. C6-7: Broad-based disc osteophyte consummation hypertrophy of ligamentum flavum resulting in CSF effacement of the thecal sac. Bilateral neuroforamina stenosis. C7-T1: Broad-based disc osteophyte compresses formation. Facet joint hypertrophy. Reduced AP diameter of thecal sac. Bilateral neuroforamina narrowing on a degenerative basis. No prevertebral compartment hematoma, mass or fluid collection. Flow-void signal within the main vessels is normal. . MR/MR cervical spine wo con IMPRESSION: Multilevel cervical spondylosis C4-5 to C7-T1 resulting in cord compression without cord edema and or myelopathy at C6-7. Electronically signed by: Андрей Weller MD 11/01/2025 08:26 AM [facility]
--- OUTSIDE RECORDS SUMMARY | 2025-11-01 07:18 | XMS_ITS | Encounter Summary ---
Author Organization [facility] Address [address] [place] [address] [place] [address] Phone Care Team Providers Care Manager Traffic Name Role Phone Kaden Boston NP Primary Care Provider + Rehan Gaviria MD Unavailable [phone] Jeffery Wells MD Unavailable [phone] Stewart Munoz MD, MPH Unavailable [phone] Encounter Details Date Type Department Care Team (Late st Contact Info) Description 07/27/2024 Procedure Pass [facility], [facility] [place] 450 [facility], Floor [address] [place] [address] Social History Tobacco Use Types Packs/Day Years [...] Care Team (Late st Contact Info) Description 08/09/2025 Procedure Pass [facility] Imaging Department, [facility] [place] [address] [facility], Floor [address]1 [place], [place] [address] 08/09/2025 Procedure Pass [facility] Imaging Department, [facility], [place] 450 [facility], Floor [address] [place] [address] 02/07/2026 6:30 AM EDT Blood Draw [facility] Imaging Department, [facility], Imaging [id number] [address] [facility], Floor [address] [place] [address] Jeffery Wells MD [address] [address] Meg@[email or web address] 02/07/2026 7:30 AM EDT Appointment [facility] Imaging Department, [facility], [place] 450 [facility], Floor [address] [place] [address] Stewart Munoz MD, MPH [address] [place] [address] 3rd [place] [address] [email or web address] 02/07/2026 10:30 AM EDT Office Visit [facility], [facility] 450 [facility], 10th [place] [address] Jeffeyr Wells MD [address] [address] Meg@[facility] documented as of this encounter Visit Diagnoses Not on filedocumented in this encounter Care Teams Manager Traffic Relationship Specialty Start Date End Date Kaden Boston NP [address] [facility] [place] [address] PCP - General Nurse Practitioner 05/03/24 Rehan Gaviria MD [address] [place] [address] [address] [place] [address] Gastroenterology 05/03/24 Jeffery Wells MD [address] [place], [place] [address]cheryl Messina [address] [place] [address] Meg@[email or web address] Medical Oncology 05/03/24 Stewart Munoz MD, MPH [address] [place] [address] [email or web address] Surgical Oncology 05/03/24 documented as of this encounter Additional Source Comments The information contained in this document represents components of the legal health record. It is not the complete legal health record.[facility]
--- OUTSIDE RECORDS SUMMARY | 2025-11-01 07:18 | XMS_ITS | Encounter Summary ---
Author Organization [facility] Address [address] [place] [address] Phone Care Team Providers Care Expanded Function Dental Assistant Name Role Phone Kaden Boston NP Primary Care Provider + Rehan Gaviria MD Unavailable [phone] Jeffery Wells MD Unavailable [phone] Stewart Munoz MD, MPH Unavailable [phone] Encounter Details Date Type Department Care Team (Late st Contact Info) Description 05/16/2024 Procedure Pass [facility] [place] [facility] [place] [address] [address] Social History Tobacco Use Types [...] st Contact Info) Description 08/09/2025 Procedure Pass [facility] Imaging Department, [facility], [place] 450 [facility], Floor [address]1 [place] [address] 08/09/2025 Procedure Pass [facility] Imaging Department, [facility] [place] 450 [facility], Floor [address]1 [place] [address] 02/07/2026 6:30 AM EDT Blood Draw [facility] Imaging Department, [facility], Imaging Qkcxz-ek-Anto 450 [facility], Floor [address]1 [place] [address] Jeffery Wells MD 450 [facility] [address] [place] [address] Meg@[email or web address] 02/07/2026 7:30 AM EDT Appointment [facility] Department, [facility], [place] 450 [facility], Floor [address]1 [place] [address] Stewart Munoz MD, MPH [address] [place] [address] [email or web address]@[facility] 02/07/2026 10:30 AM EDT Office Visit [facility], [facility] 450 [facility], 10th [place] [address] Jeffery Wells MD 450 [facility] [address] [place], [place] Meg@[email or web address] documented as of this encounter Visit Diagnoses Not on filedocumented in this encounter Care Teams Expanded Function Dental Assistant Relationship Specialty Start Date End Date Kaden Boston NP [address] [facility] [place] [address] PCP - General Nurse Practitioner 05/03/24 Rehan Gaviria MD [address] [place] [address] [place] [address] Gastroenterology 05/03/24 Jeffery Wells MD 450 [facility] [address] [place] [address] Meg@[email or web address] Medical Oncology 05/03/24 Stewart Munoz MD, MPH [address] [place] [address] [email or web address] Surgical Oncology 05/03/24 documented as of this encounter Additional Source Comments The information contained in this document represents components of the legal health record. It is not the complete legal health record.[facility]
--- OUTSIDE RECORDS SUMMARY | 2025-11-01 07:18 | XMS_ITS | Encounter Summary ---
Author Organization [facility] Address [address] [place] [address] [place] [address] Phone Care Team Providers Care Public Defender Name Role Phone Kaden Boston NP Primary Care Provider + Rehan Gaviria MD Unavailable [phone] Jeffery Wells MD Unavailable [phone] Stewart Munoz MD, MPH Unavailable [phone] Encounter Details Date Type Department Care Team (Late st Contact Info) Description 06/20/2024 Procedure Pass [facility] Periop [address] [place] [address] Social History Tobacco Use Types Packs/Day Years [...] st Contact Info) Description 08/09/2025 Procedure Pass [facility] Imaging Department, [facility], [place] 450 [facility], Floor L1 [place] [address] 08/09/2025 Procedure Pass [facility] Imaging Department, [facility], [place] [address] [facility], Floor [address]1 [place] [address] 02/07/2026 6:30 AM EDT Blood Draw [facility] Imaging Department, [facility], Imaging [id number]-[id number] [address] [facility], Floor [address] [place] [address] Jeffery Wells MD 450 [facility] [address] [place] [address] Meg@[email or web address] 02/07/2026 7:30 AM EDT Appointment [facility] Imaging Department, [facility], [place] 450 [facility], Floor [address] [place] [address] Stewart Munoz MD, MPH [address] [place] [address] 3rd [place] [address] [email or web address] 02/07/2026 10:30 AM EDT Office Visit [facility], [facility] 450 [facility], 10th [place] [address] Jeffery Wells MD [address] [address] Meg@[facility] documented as of this encounter Visit Diagnoses Not on filedocumented in this encounter Care Teams Public Defender Relationship Specialty Start Date End Date Kaden Boston NP [address] [facility] [place] [address] PCP - General Nurse Practitioner 05/03/24 Rehan Gaviria MD [address] [place] [address] [address] [place] [address] Gastroenterology 05/03/24 Jeffery Wells MD [address] [place] [address] Jimena Messina [address] [place] [address] Meg@[email or web address] Medical Oncology 05/03/24 Stewart Munoz MD, MPH [address] [place] [address] [email or web address] Surgical Oncology 05/03/24 documented as of this encounter Additional Source Comments The information contained in this document represents components of the legal health record. It is not the complete legal health record.[facility]
--- OUTSIDE RECORDS SUMMARY | 2025-11-01 07:18 | XMS_ITS | Encounter Summary ---
Author Organization [facility] Address [address] [place] [address] [place] [address] Phone Care Team Providers Care Conference Translator Name Role Phone Kaden Boston NP Primary Care Provider + Rehan Gaviria MD Unavailable [phone] Jeffery Wells MD Unavailable [phone] Stewart Munoz MD, MPH Unavailable [phone] Encounter Details Date Type Department Care Team (Late st Contact Info) Description 01/25/2025 Procedure Pass [facility], [facility] [place], [place] 450 [facility], Floor L1 [place] [address] Social History Tobacco Use Types Packs/Day Years [...] st Contact Info) Description 08/09/2025 Procedure Pass [facility] Imaging Department, [facility] [place], [place] [address] [facility], Floor [address]1 [place], [place] [address] 08/09/2025 Procedure Pass [facility] Imaging Department, [facility], [place] 450 [facility], Floor [address]1 [place] [address] 02/07/2026 6:30 AM EDT Blood Draw [facility] Imaging Department, [facility], Imaging Jj[facility]ji-Mf[facility] [address] [facility], Floor [address]1 [place] [address] Jeffery Wells MD [address] [address] [email or web address] 02/07/2026 7:30 AM EDT Appointment [facility] Imaging Department, [facility], [place] 450 [facility], Floor L1 [place] [address] Stewart Munoz MD, MPH [address] [place] [address] 3rd [place] [address] [email or web address] 02/07/2026 10:30 AM EDT Office Visit [facility], [facility] [address] [facility], 10th [place] [address] Jeffery Wells MD [address] [address] [email or web address] documented as of this encounter Visit Diagnoses Not on filedocumented in this encounter Care Teams Conference Translator Relationship Specialty Start Date End Date Kaden Boston NP [address] [facility] [place] [address] PCP - General Nurse Practitioner 05/03/24 Rehan Gaviria MD [address] [place] [address] Drive [address] [place] [address] Gastroenterology 05/03/24 Jeffery Wells MD [address] [place], [place] [address]cheryl [place] [address] [place] [address] [email or web address] Medical Oncology 05/03/24 Stewart Munoz MD, MPH [address] [place] [address] [email or web address] Surgical Oncology 05/03/24 documented as of this encounter Additional Source Comments The information contained in this document represents components of the legal health record. It is not the complete legal health record.[facility]
--- OUTSIDE RECORDS SUMMARY | 2025-11-01 07:18 | XMS_ITS | Encounter Summary ---
Author Organization [facility] Address [address] [place] [address] Phone Care Team Providers Care Parking Meter Mechanic Name Role Phone Kaden Boston NP Primary Care Provider + Rehan Gaviria MD Unavailable [phone] Jeffery Wells MD Unavailable [phone] Stewart Munoz MD, MPH Unavailable [phone] Encounter Details Date Type Department Care Team (Late st Contact Info) Description 05/16/2024 Procedure Pass [facility] [place] [address] [address] Social History Tobacco Use Types [...] st Contact Info) Description 08/09/2025 Procedure Pass [facility] Imaging Department, [facility], [place] 450 [facility], Floor [address]1 [place] [address] 08/09/2025 Procedure Pass [facility] Imaging Department, [facility] [place] [address] [facility], Floor [address]1 [place] [address] 02/07/2026 6:30 AM EDT Blood Draw [facility] Imaging Department, [facility], Imaging [id number]-Bgrn [address] [facility], Floor [address]1 [place] [address] Jeffery Wells MD 450 [facility] [address] [place] [address] [email or web address] 02/07/2026 7:30 AM EDT Appointment [facility], [facility] [place] 450 [facility], Floor [address]1 [place] [address] Stewart Munoz MD, MPH [address] [place] [address] [email or web address] 02/07/2026 10:30 AM EDT Office Visit [facility], [facility] 450 [facility], 10th [place] [address] Jeffery Wells MD 450 [facility] 1220 [place], [place] [email or web address] documented as of this encounter Visit Diagnoses Not on filedocumented in this encounter Care Teams Parking Meter Mechanic Relationship Specialty Start Date End Date Kaden Boston NP [address] [facility] [place] [address] PCP - General Nurse Practitioner 05/03/24 Rehan Gaviria MD [address] [place] [address] [place] [address] Gastroenterology 05/03/24 Jeffery Wells MD 450 [facility] [address] [place] [address] [email or web address] Medical Oncology 05/03/24 Stewart Munoz MD, MPH [address] [place] [address] [email or web address] Surgical Oncology 05/03/24 documented as of this encounter Additional Source Comments The information contained in this document represents components of the legal health record. It is not the complete legal health record.[facility]
--- OUTSIDE RECORDS SUMMARY | 2025-11-01 07:18 | XMS_ITS | Continuity of Care Document ---
Author Organization [place] [facility] [place] Address [address] [facility] [address] [place] [address] Care Team Providers Care Pharmaceutical Sales Representative Name Role Phone JENS HERNÁNDEZ Primary Care Provider [phone] JENS HERNÁNDEZ Referring Provider [phone] Assessment Encounter Date Assessment Date Assessment LastModified by Organization Details LastModified Time 09/24/2025 09/24/2025 1. Stable medially based right knee pain. He does have a medial meniscus tear as well as some fluid-filled cystic changes deep to the pes anserine tendons medially. He had several questions regarding a cortisone injection today. After thoughtful discussion he finds that his symptoms are currently manageable and do not rise to the level that he wants to consider an injection. Certainly something we can consider in the future. Might also consider PRP. He will continue home exercise program and modify activities according to tolerance. 2. He had some follow-up questions regarding his right shoulder. DOS 02/06/25 Right shoulder arthroscopy, rotator cuff repair, subacromial decompression/ac romioplasty, open biceps tenodesis He has some intermittent activity related discomfort. He admits that he is not currently performing home exercise program. He understands that it could be up to an over a year from the time of surgery to realize full results from a surgery. I have encouraged him to restart his home exercise program. He is going to cancel his upcoming appointment for the shoulder and we will follow him up on an as-needed basis if his symptoms rise to the level where he wants to consider additional formal intervention. Greater than 20 minutes was spent with the encounter today, including face to face time with the patient, documentation, review of records/imaging if applicable, and coordination of care. PRIOR: I went over the MRI with him. We looked at the images together. He does have an area of bursitis and fluid-filled cystic change deep to the pes anserine tendons medially. He also has a medial meniscus tear which may be responsible for his current medially based knee symptoms. We discussed treatment options. Given his short duration of pain potentially related to the meniscus tear we decided on observation. We did briefly discussed a cortisone injection but have decided to hold off. He is heading on a trip to [facility] tomorrow for 10 days, we will make a follow-up in 3 to 4 weeks and if his symptoms persist at that point can give consideration to a cortisone injection or potentially an arthroscopy. With regards to the bursitis along the pes anserine tendons I recommend observation. Certainly if he were come to need a knee arthroscopy these could be addressed with an open decompression/ex cision. At present we will observe. He is comfortable with the plan as outlined. PRIOR: He has a history of a right knee effusion and carries the presumed diagnosis of pseudogout. He has no intra-articular effusion today. The main reason for his visit is a soft tissue lump/mass over the posterior medial knee. This feels firm, cannot exclude a parameniscal cyst or ganglion. He believes it is at least stable in size or potentially is slowly getting bigger. It does bother him. This warrants further investigation with an MRI with and without IV contrast to better define the mass. This is not something that is going to improve or change with physical therapy. It is extra-articular. He is in agreement with the plan. I will see him back to go over the MRI with further decision making to follow-up. Questions invited and answered. Not available 09/24/2025 08:41:30 Plan of Treatment Reminders Order Date Submit Date Provider Last Modified By Organization Details Last Modified Time Details Appointments None record ed. Lab None record ed. Referral None record ed. Procedures None record ed. Surgeries None record ed. Imaging None record ed. Medication Orders None record ed. Patient TargetsNo targets recorded. Patient Instructions Encounter Date Encounter Id Patient Instructions Last Modified By Organization Details Last Modified Time 09/24/2025 [id number] views of the right knee were obtained on 07/23/2025 in the [place] office. There is moderate medial joint space narrowing. Prominent enthensophyte from the superior patella at the quadriceps insertion. No acute fracture appreciated. Patella tracks centrally. Incidental notation of mild to moderate left knee medial compartment narrowing with area of chondrocalcinosis. Findings: Degenerative changes as described right knee. Interpreted by: Eulogio Chavez MD Not available 09/24/2025 06:26:52 Reason for Referral None Reported. Problems Name Problem SNOMED Code Status Onset Date Resolution Date Notes Provider Name and Address Organization Details Recorded Time Impingeme nt syndrome of right shoulder region 81886652430 9102 Active 2017 Impingeme nt syndrome of right shoulder Not Available [facility] 5 00:39:15 Impingeme nt syndrome of left shoulder region 49151406764 9104 Active 2020 Impingeme nt syndrome of left shoulder Not Available [facility] 5 00:39:14 Subacromi al bursitis of left shoulder 56710850859 89636 Active 2020 Subacromi al bursitis of left shoulder joint Not Available [facility] 5 00:39:15 Prepatell ar bursitis of right knee 13758316775 9100 Active 2022 LIOR VELASCO PA-C [address], [place], [address] , [place] [facility] 3 08:17:24 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 433192235 Active 2022 LIOR VELASCO PA-C [address], [place], [address] , [place] [facility] 3 13:08:25 Pain of right shoulder joint 86006134534 516934 Active 2023 SWETA DUTTON PA-C [address], [place], [address] , [place] [facility] 4 09:40:11 Pain of left shoulder joint 21078489088 923290 Active 2023 Eulogio Chavez MD [address], [place], [address] , [place] [facility] 5 09:49:50 Pain of right shoulder region Active 2023 Eulogio Chavez MD [address], [place], [address] , [place] [facility] 5 07:58:30 History of repair of musculote ndinous cuff of shoulder 593641794 Active 2024 Eulogio Chavez MD [address], [place], [address] , [place] [facility] 5 07:59:23 Pain of right knee joint 72341209804 4100 Active 2024 Eulogio Chavez MD [address], [place], [address] , [place] [facility] 5 06:47:24 Mass of knee 937533608 Active [address], [place], [address] , [place] [facility] 5 13:52:22 Acute meniscal tear, medial 118611820 Active 2024 Eulogio Chavez MD [address], [place], [address] , [place] [facility] 5 09:49:40 Problem Notes None recorded. Procedures Surgical History Date Name Laterality Status Provider Name and Address Organization Details Recorded Time 025 SHOULDER ARTHROSCOPY (SURG) completed Ayla Lan [facility] 02/07/2025 09:26:53 023 Knee Joint/Bursa Asp & Inj completed LIOR VELASCO PA-C [address] [place] [address], [address], [place] [facility] 09/15/2023 08:15:22 repair of musculotendinous cuff of shoulder completed Nadya Ramon [place] [facility] 06/27/2023 14:15:30 Imaging Results None recorded. Procedure Notes None recorded. Medical Equipment None Reported. Allergies Allergen ID Allergen Name Allergen Category Reaction Reaction Severity Criticality Documentation Date Start Date Code Code System Note Provider Name and Address Organization Details Recorded Time 39551 Product containin g penicilli n (product) medicatio n Not available Not available Not available 04/11/2025 56340 8001 SNOMED Madeline Shah null, [place] [facility] 10:26:48 19199 levofloxa mariela medicatio n Not available Not available Not available 08/06/20252020 95959 RxNorm Not Available [facility] 01:28:16 79978 erythromy mariela medicatio n Not available Not available Not available 08/06/20252018 4053 RxNorm React ion: Other (See Comme nts), sever ity: Unkno wn Not Available [facility] 01:28:16 Medications Name Sig Start Date Stop Date [...] BY MOUTH EVERY DAY FOR 4 DAYS 04/10 completed Not Available Not Available Not Available clindamycin HCl 300 mg capsule Take 1 capsule (300 mg total) by mouth 3 (three) times a day for 1 day. Start after surgery 12/11 completed Not Available Not Available Not Available prazosin 1 mg capsule Take 1 mg by mouth every night at bedtime. 08/26 completed Not Available Not Available Not Available meloxicam 15 mg tablet TAKE 1 TABLET EVERY DAY IN THE MORNING FOR 7 DAYS, START THE DAY AFTER SURGERY 02/14 completed Not Available Not Available Not Available promethazin e 12.5 mg tablet Take 1 tablet (12.5 mg total) by mouth every 8 (eight) hours as needed for nausea. Use after surgery as needed 08/26 completed Not Available Not Available Not Available bupivacaine HCl 0.5 % (5 mg/mL) injection solution Take 5 mL by injection route. 09/28 completed Not Available Not Available Not Available prednisone 20 mg tablet 08/26 completed Not Available Not Available Not Available [...] TABLET AT 10 PM DAY BEFORE SURGERY 04/10 completed Not Available Not Available Not Available ciprofloxac in 500 mg tablet 02/14 completed Not Available Not Available Not Available pantoprazol e 20 mg tablet,dom yed release TAKE 1 TABLET BY MOUTH DAILY active Not Available Not Available No t Available famotidine 20 mg tablet TAKE 1 TABLET BY MOUTH TWICE A DAY 08/26 completed Not Available Not Available Not Available triamcinolo ne acetonide 40 mg/mL suspension for injection 12/10 completed Not Available Not Available Not Available cephalexin 500 mg capsule TAKE 1 CAPSULE BY MOUTH EVERY 6 HOURS START EVENING OF SURGERY 02/14 completed Not Available Not Available Not Available pantoprazol e 40 mg tablet,dom yed release TAKE 1 TABLET BY MOUTH EVERY DAY 02/14 completed Not Available Not Available Not Available simvastatin 20 mg tablet TAKE 1 T BY MOUTH IN THE EVENING ONCE A DAY 08/26 completed Not Available Not Available Not Available methylpredn isolone acetate 40 mg/mL suspension for injection 01/07 completed Not Available Not Available Not Available lisinopril 10 mg tablet TAKE 1 TABLET BY MOUTH DAILY active Not Available Not Available No t Available Advair Diskus 500 mcg-50 mcg/dose powder for inhalation 08/26 completed Not Available Not Available Not Available gabapentin 300 mg capsule Take 300mg for 3 days at bedtime. Please start 1 night prior to surgery 08/26 completed Not Available Not Available Not Available lisinopril 5 mg tablet Daily 08/26 completed Not Available Not Available Not Available ibuprofen 600 mg tablet TAKE 1 TABLET BY MOUTH EVERY 6 HOURS FOR 14 DAYS ALTERNATE EVERY 6 HOURS WITH TYLENOL 09/28 completed Not Available Not Available Not Available methylpredn isolone 4 mg tablets in a dose pack TAKE 6 TABLETS ON DAY 1 DIRECTED ON PACKAGE AND DECREASE BY 1 TAB EACH DAY FOR A TOTAL OF 6 DAYS 04/10 completed Not Available Not Available Not Available neomycin 500 mg tablet TAKE 2 TABLETS AT 5PM AND 2 TABLETS AT 10 PM THE DAY BEFORE SURGERY. 04/10 completed Not Available Not Available Not Available albuterol sulfate HFA 90 mcg/actuati on aerosol inhaler INHALE 2 PUFFS EVERY 4 HOURS NEEDED FOR WHEEZE OR FOR SHORTNESS OF BREATH 09/28 completed Not Available Not Available Not Available colchicine 0.6 mg tablet TAKE 1/2 OF A TABLET BY MOUTH ONCE DAILY active Not Available Not Available No t Available ondansetron 4 mg disintegrat ing tablet PLACE 1 TABLET TWICE A DAY BY TRANSLING UAL ROUTE NEEDED, FOR NAUSEA. 04/10 completed Not Available Not Available Not Available doxycycline hyclate 100 mg tablet Take 100 mg by mouth 2 (two) times a day. 08/26 completed Not Available Not Available Not Available oxycodone 5 mg tablet TAKE 1 TABLET BY MOUTH EVERY 6-8 HOURS NEEDED. DO NOT START UNTIL AFTER SURGERY 04/10 completed Not Available Not Available Not Available Laxative (bisacodyl) 5 mg tablet,dom yed release TAKE 2 TABLETS BY MOUTH AT 2 PM DAY BEFORE SURGERY DIRECTED 04/10 completed Not Available Not Available Not Available enoxaparin 40 mg/0.4 mL subcutaneou s syringe 04/10 completed Not Available Not Available Not Available clonazepam 0.25 mg disintegrat ing tablet [...] and Address Organization Details Last Updated DateTime 09/24/2025 177.8 cm 26 kg/m2 28983.[address] [place] [facility] 09/24/2025 08:26:04 Social History None recorded. Functional Status Question Answer Note LastModified by Organizat ion Details LastModified Time Do you use any illicit or recreational drugs? No Information not available 06/27/2023 Do you or have you ever used any other forms of tobacco or nicotine? No Information not available 06/27/2023 What is your level of alcohol consumption? None Information not available 06/27/2023 Mental Status None recorded. Family History Relationship Description Onset Age of this Age Resolved Age Notes LastModified by Organization Details LastModified Time Mother Hypertensive disorder Not available 2022 14:14:57 Medical History Condition Response Anxiety Disorder Y Reflux/GERD Y Hypertension Y Past Encounters Encounter ID Performer Location Encounter Start Date Encounter Closed Date Diagnosis/Indication Diagnosis SNOMED-CT Code Diagnosis ICD10 Code Diagnosis IMO Codes Diagnosis Note [id number] [place] [id number] 08/26/2025 09:31:27 08/26/2025 10:06:16 Pain of left shoulder joint 8482668017 2488107 M25.512 Pain of ri ght knee joint 7219130168 95229 M25.561 552132 Mass of knee 932543314 R 22.41 36687523 Acute meni scal tear, medial 488750502 S83.231A [id number] MD [place] [id number] 09/24/2025 08:21:08 09/24/2025 08:42:13 Pain of right knee joint 9934194377 28467 M25.561 742993 Mass of knee 639311287 R 22.41 65145270 Acute meni scal tear, medial 789293783 S83.231D [id number] Health Concerns Section Related Observation LastModified by Organization Detai ls LastModified Time None Recorded Concern Status LastModified by Organization Details LastModified Time None Recorded Payers Encounter Date Sequence Insurance Name Policy Number Policy Melton Covered Member ID Melton Member ID Guarantor Name 09/24/2025 1 [employer]/ [place]VANTAGE - PPO) [id number] Faraz Bailey [id number] Faraz Bailey Notes Date Note Type Note Provider Name and Address Organization Details Recorded Time 09/24/2025 text/html ROS as noted in the HPI Patient returns for follow-up of his right knee. His symptoms have continued to improve. He had a great vacation to [facility]. He has occasional medially based discomfort with walking up a hill or with certain twisting movements. No real swelling in the knee. He has no pain at rest. He tells me his left shoulder is doing well. He tells me the right shoulder I do not think is going to get any better . He admits he has stopped his home exercise program. He is not currently in formal therapy for the shoulder. He notes that activities such as wearing a backpack blower can be bothersome. PRIOR:Patient returns for reevaluation of his right knee. He brings his MRI in for review. In general he has not had much pain in the knee, but for about a week he has had medially based knee pain which is definitely different than what he is had in the past. This started after he had the MRI done. PRIOR:65-year-old male well-known to me presents for an evaluation of his right knee. He is reporting some persistent right knee pain. He has a history of some swelling in the knee drained twice-he thinks over a year ago- and was diagnosed with pseudogout. More recently he has noted some swelling and a lump over the medial knee around the hamstring region. He states the lump was not originally there. He is not sure if it is growing in size. It can be uncomfortable particular at night if he is on his side. He tells me he is on some maintenance medication to help prevent pseudogout. He denies any fevers or chills. He denies radiating pain to the hip or ankle. He denies mechanical locking. At times the lump can be tender. Eulogio Chavez MD [address], [place], [address], [place] [facility] 09/24/2025 12:41:19
--- OUTSIDE RECORDS SUMMARY | 2025-11-01 07:18 | XMS_ITS | Continuity of Care Document ---
Author Organization [place] [facility] Address [address] [place] [address] Care Team Providers Care Atomizer Assembler Name Role Phone JENS HERNÁNDEZ Primary Care Provider JENS HERNÁNDEZ Referring Provider Assessment Encounter Date Assessment Date Assessment LastModified by Organization Details LastModified Time 08/26/2025 08/26/2025 I went over the MRI with him. [...] He is heading on a trip to [facility] tomorrow for 10 days, we will [...] is comfortable with the plan as outlined. Questions invited and answered. Greater than 30 minutes was spent with the encounter today, including face to face time with the patient, documentation, review of records/imaging if applicable, and coordination of care. PRIOR: He has a history of a [...] follow-up. Questions invited and answered. Not available 08/26/2025 10:42:08 Plan of Treatment Reminders Order Date Submit [...] Modified By Organization Details Last Modified Time 08/26/2025 [id number] 3 views of the right knee were obtained on 07/23/2025 in the [facility] office. There is moderate medial joint space narrowing. Prominent enthensophyte from the superior patella at the quadriceps insertion. No acute fracture appreciated. Patella tracks centrally. Incidental notation of mild to moderate left knee medial compartment narrowing with area of chondrocalcinosis. Findings: Degenerative changes as described right knee. Interpreted by: Eulogio Chavez MD Not available 08/25/2025 07:20:56 Reason for Referral None Reported. Results Created Date Observation Date Name Description Value Unit Range Abnormal Flag Note LastModifiedBy Organization Detail LastModifiedTime 08/13/20 25 08/13/2025 MRI, knee, w/wo contr ast No observ ation record ed. [facility] [address], [place], [address], 08/26/2025 10:44:05 Result Notes None recorded. Problems Name Problem SNOMED Code Status Onset Date Resolution Date Notes Provider Name and Address Organization Details Recorded Time Impingeme nt syndrome of right shoulder region 36920994395 9102 Active 2017 Impingeme nt syndrome of right shoulder Not Available [facility] 5 00:39:15 Impingeme nt syndrome of left shoulder region 60628589927 9104 Active 2020 Impingeme nt syndrome of left shoulder Not Available [facility] 5 00:39:14 Subacromi al bursitis of left shoulder 30406993868 10277 Active 2020 Subacromi al bursitis of left shoulder joint Not Available [facility] 5 00:39:15 Prepatell ar bursitis of right knee 31781934340 9100 Active 2022 LIOR VELASCO PA-C [address], [place], [address] , [place] [facility] 3 08:17:24 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 453344020 Active 2022 LIOR VELASCO PA-C [address], [place], [address] , [place] [facility] 3 13:08:25 Pain of right shoulder joint 03825588392 880897 Active 2023 SWETA DUTTON PA-C [address], [place], [address] , [place] [facility] 4 09:40:11 Pain of left shoulder joint 72139476784 962639 Active [address], [place], [address] , [place] [facility] 5 09:49:50 Pain of right shoulder region Active [address], [place], [address] , [place] [facility] 5 07:58:30 History of repair of musculote ndinous cuff of shoulder 541128394 Active 2024 Eulogio Chavez MD [address], [place], [address] , [place] [facility] 5 07:59:23 Pain of right knee joint 58509085302 4100 Active 2024 Eulogio Chavez MD [address], [place], [address] , [place] [facility] 5 06:47:24 Mass of knee 590884468 Active 2024 Eulogio Chavez MD [address], [place], [address] , [place] [facility] 5 13:52:22 Acute meniscal tear, medial 651668445 Active 2024 Eulogio Chavez MD [address], [place], [address] , [place] [facility] 5 09:49:40 Problem Notes None recorded. Procedures Surgical History Date Name Laterality Status Provider Name and Address Organization Details Recorded Time 025 SHOULDER ARTHROSCOPY (SURG) completed Ayla Lan [place] [facility] 02/07/2025 09:26:53 023 Knee Joint/Bursa Asp & Inj completed LIOR VELASCO PA-C [address] [place] [address], [address], [place] [facility] 09/15/2023 08:15:22 repair of musculotendinous cuff of shoulder completed Nadya Ramon [place] [facility] 06/27/2023 14:15:30 Imaging Results None recorded. Procedure Notes None recorded. Medical Equipment None Reported. Allergies Allergen ID Allergen Name Allergen Category Reaction Reaction Severity Criticality Documentation Date Start Date Code Code System Note Provider Name and Address Organization Details Recorded Time 82863 Product containin g penicilli n (product) medicatio n Not available Not available Not available 04/11/2025 94150 8001 SNOMED Madeline kaminski, [place] [facility] 5 10:26:48 74165 levofloxa amriela medicatio n Not available Not available Not available 08/06/20252020 95397 RxNorm Not Available [facility] 5 01:28:16 29017 erythromy mariela medicatio n Not available Not available Not available 08/06/20252018 4053 RxNorm React ion: Other (See Comme nts), sever ity: Unkno wn Not Available [facility] 01:28:16 Medications Name Sig Start Date [...] and Address Organization Details Last Updated DateTime 08/26/2025 177.8 cm 25.8 kg/m2 26428.[address] Мария [address] [place] [facility] 08/26/2025 09:40:01 Social History None recorded. Functional Status Question [...] ICD10 Code Diagnosis IMO Codes Diagnosis Note [id number] Eulogio Chavez MD [address] [place] [address] 08/26/2025 09:31:27 08/26/2025 10:06:16 Pain of left shoulder joint 3378922286 7221659 M25.512 Pain of ri ght knee joint 8796324364 43742 M25.561 150604 Mass of knee 942013570 R 22.41 20127083 Acute meni scal tear, medial 462585367 S83.231A 2221624 Health Concerns Section Related Observation LastModified by Organization Detai ls LastModified Time None Recorded Concern Status LastModified by Organization Details LastModified Time None Recorded Payers Encounter Date Sequence Insurance Name Policy Number Policy Melton Covered Member ID Melton Member ID Guarantor Name 08/26/2025 1 [id number]/ [place]ANTAGE - [place]PO) [id number] Faraz Bailey [id number] Faraz Bailey Notes Date Note Type Note Provider Name and Address Organization Details Recorded Time 08/26/2025 text/html ROS as noted in the HPI Patient returns for reevaluation of his right knee. [...] Eulogio Chavez MD [address], [place], [address], [place] [facility] 08/26/2025 10:44:36
--- OUTSIDE RECORDS SUMMARY | 2025-11-01 07:18 | XMS_ITS | Patient Health Record ---
Author Organization [facility] Address [address] [place] [address] Care Team Providers Care Auto Transmission Specialist Name Role Phone JENS HERNÁNDEZ Primary Care Provider Rehan Lund [phone] Allergies Allergen (clinical drug ingredient) Drug/Non Drug Allergy documented on EMR Reaction Allergy Type Onset Date Status erythromycin Erythromycin Unknown Drug Allergy A ctive penicillamine Penicillamine Unknown Drug Allergy Active Reason For Referral No Information Medications Medication SIG (Take, Route, Frequency, Duration) Notes Start Date End Date Status Protonix 40 MG Tablet Delayed Release 1 tablet Orally Once a day Active Rosuvastatin Calcium 20 MG Tablet 1 tablet Orally Once a day; Duration: 30 day(s) Active clonazePAM 1 MG Tablet 1 tablet Orally O nce a day Active Zoloft 100 MG Tablet 2 tablet Orally Onc e a day Active Lisinopril 10 MG Tablet 1 tablet Orally Once a day Active Immunizations Vaccine Route Administration Date Status Comme nts Influenza Unknown 11/15/2018 Refused Influenza Unknown 01/18/2024 Refused Social History Tobacco Use: Social History Observation Description Date Details (start date - stop date) Former Smoker NA - NA Social History Drugs/Alcohol: Social Info Question Answer Notes Alcohol Screen Did you have a drink containing alcohol in the past year? Yes How many drinks did you have on a typical day when you were drinking in the past year? 3 or 4 drinks (1 point) How often did you have 6 or more drinks on one occasion in the past year? Weekly (3 points) Points 4 Interpretation Positive Tobacco Use: Social Info Question Answer Notes Tobacco Use/Smoking Patient is a former smoker How long has it been since you last smoked? 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 Section Notes: Nonsmoker > 10 yrs; Drinks 4 beers QD Nonsmoker > 10 yrs; Drinks b eer--he loves his beer --amounts can vary Nonsmoker > 10 yrs; Drinks b eer--he loves his beer --amounts can vary Problems Problem Type SNOMED Code ICD Code Onset Dates Problem Status W/U Status Risk Notes Problem Screening for malignant neoplasm of colon (104530249) Encounter for screening for malignant neoplasm of colon (Z12.11) Active confirmed Problem Neuroendocrine neoplasm, malignant (disorder) (6666932597) Other malignant neuroendocrine tumors (C7A.8) Active confirmed Problem Diverticular disease of colon (790327244) Diverticulosis of large intestine without perforation or abscess without bleeding (K57.30) Active confirmed Problem Gastroesophageal reflux disease without esophagitis (857486825) Gastroesophageal reflux disease without esophagitis (K21.9) Active confirmed Problem Family History of Cancer of Colon (Situation) (477944737) Family history of colon cancer (Z80.0) Active confirmed Problem Serum ferritin high (401236479) Elevated ferritin (R79.89) Active confirmed Problem Esophageal dysphagia (21036964) Esophageal dysphagia (R13.10) Active confirmed Plan Of Treatment Future Test Test Name Order Date UPPER GI ENDOSCOPY BALLOOON DILATION OF ESOPH 11/15/2018 COLONOSCOPY 11/15/2018 COLONOSCOPY 01/18/2024 Insurance Providers Payer Name Payer Address Payer Phone Subscriber Number Group Number Insured Name Patient Relationship to Insured Coverage Start Date Coverage End Date [facility] [address] [place], [place] [id number] [phone] [id number] MIKE MENG Self - patient is the insured Medical (General) History Medical History History ICD Code Denies [place],DM,CVA,Lung disease,renal dise ase Negative screening colonoscopy in [...]
--- OUTSIDE RECORDS SUMMARY | 2025-11-01 07:18 | XMS_ITS | Clinical Summary ---
Author Organization [facility] Prior to 04/13/[address] [place] [address] Care Team Providers Care Risk And Insurance Consultant Name Role Phone Kaden Boston Primary Care Provider [phone] Allergies Active Allergy Reactions Criticality Noted Date [...] age to complete this topic Care Teams Risk And Insurance Consultant Relationship Specialty Start Date End Date Kaden Boston [address] [address] PCP - General Family Medicine 12/16/20
--- OUTSIDE RECORDS SUMMARY | 2025-11-01 07:18 | XMS_ITS | Encounter Summary ---
Author Organization [facility] Address [address] [place] [address] Care Team Providers Care Workforce Services Representative Name Role Phone Kaden Boston NP Primary Care Provider [phone] Encounter Details Date Type Department Care Team (Late st Contact Info) Description 07/24/2025 Lab Requisition [facility] - Main Lab [address] [facility] [place] [address] Serjio Forrester, JENNIFER [address] [place] [address] Other microscopic hematuria Social History Tobacco Use Types Packs/Day Years [...] on file documented as of this encounter Plan of Treatment Not on file documented as of this encounter Procedures Procedure Name Priority Date/Time Associated Diagnosis Comments NON-GYNECOLOGIC CYTOLOGY Routine 07/12/2025 12:00 AM EDT Other microscopic hematuria documented in this encounter Results * Non-gynecologic cytology (07/12/2025 12:00 AM EDT) Final Diagnosis A. Urine, Voided, ([id number]): Negative for high grade urothelial carcinoma. 08/12/2025 4:10 PM EDT [facility] at 1610 EDT Specimen A Adequacy Satisfactory for evaluation 08/12/2025 4:10 PM EDT [facility] Clinical Information Other microscopic hematuria R31.29 Urine cytology with reflex UroVysion (AUC/SHGUC) 08/12/2025 4:10 PM EDT [facility] Gross Description A. Urine, Voided, ([id number]): Received is one ThinPrep slide for cytology. 08/12/2025 4:10 PM EDT [facility] Disclaimer Unless otherwise specified, all tissue is 10% NB formalin fixed and paraffin embedded. Technical pathology services provided by [facility] at [address], [place] [address] (CLIA #[id number]/Kamari Clements MD, Hand Suture Winder) 08/12/2025 4:10 PM EDT [facility] Urine Urine specimen from urethra / Unknown 07/12/2025 07/24/2025 4:04 PM EDT [facility] CYTOLOGY ORDERABLES Final R esult [facility] [address] [place] [address], documented in this encounter Visit Diagnoses Diagnosis Other microscopic hematuria documented in this encounter Care Teams Workforce Services Representative Relationship Specialty Start Date End Date Kaden Boston NP [address] [place], [place] PCP - General Family Medicine 12/16/20 documented as of this encounter
--- OUTSIDE RECORDS SUMMARY | 2025-11-01 07:18 | XMS_ITS | Clinical Summary ---
Author Organization [facility] Address [address] [place] [address] Phone Care Team Providers Care Water Treatment Plant Supervisor Name Role Phone Kaden Boston NP [...] on file Sexual Orientation Not on file Last Filed Vital Signs [...] Health Maintenance Due Date Last Done Comments Colorectal Cancer Screening: Colonoscopy 1960 Zoster Vaccines (1 of 2) 2008 Abdominal Aortic Aneurysm (AAA) Screen 10/16/2022 Cholesterol Screening (Lipid Panel) 10/16/2022 Hepatitis C Screening 10/16/2022 Medicare Annual Wellness Visit 10/16/2022 Social Influencers of Health Screening 10/16/2022 Falls Risk Assessment 2023 Depression Screening 11/14/2024 COVID-19 Vaccine (1 - 2024-2 6 season) 2025 Influenza Vaccine (#1) 2025 Hypertension/CHF/CAD Annual BMP [...] on patient's age to complete this topic Insurance [employer]UE [place] - [place] MEDICARE ADVANTAGE Care Teams Water Treatment Plant Supervisor Relationship Specialty Start Date End Date Kaden Boston NP [address] [place], [place] PCP - General Family Medicine 12/16/20
--- OUTSIDE RECORDS SUMMARY | 2025-11-01 07:18 | XMS_ITS | Encounter Summary ---
Author Organization [facility] Address [address] [place] [address] [place] [address] Phone Care Team Providers Care Box Closing Machine Operator Name Role Phone Kaden Boston NP Primary Care Provider + Rehan Gaviria MD Unavailable [phone] Jeffery Wells MD Unavailable [phone] Stewart Munoz MD, MPH Unavailable [phone] Encounter Details Date Type Department Care Team (Late st Contact Info) Description 07/27/2024 Procedure Pass [facility], [facility] [place], [place] [address] [facility] [place] [address] Social History Tobacco Use Types Packs/Day Years [...] st Contact Info) Description 08/09/2025 Procedure Pass [facility] Imaging Department, [facility] [place], [place] [address], [address] [place], [place] [address] 08/09/2025 Procedure Pass [facility] Imaging Department, [facility], [place] [address], [address] [place] [address] 02/07/2026 6:30 AM EDT Blood Draw [facility] Imaging Department, [facility], Imaging [place] [address] [place] [address] Jeffery Wells MD [address] [id number] [email or web address] [email or web address] 02/07/2026 7:30 AM EDT Appointment [facility] Imaging Department, [facility], [place] [address] [facility] [place] [address] Stewart Munoz MD, MPH [address] [place] [address] 3rd [place] [address] [email or web address] 02/07/2026 10:30 AM EDT Office [facility], [facility] [address] [facility], 10[address] [place] [address] Jeffery Wells MD [address] [email or web address] [facility] documented as of this encounter Visit Diagnoses Not on filedocumented in this encounter Care Teams Box Closing Machine Operator Relationship Specialty Start Date End Date Kaden Boston NP [address] [facility] [place] [address] PCP - General Nurse Practitioner 05/03/24 Rehan Gaviria MD [address] [place] [address] [address] [place] [address] Gastroenterology 05/03/24 Jeffery Wells MD [address] [place], [place] [address]cheryl Messina [address] [place] [address] [email or web address] Medical Oncology 05/03/24 Stewart Munoz MD, MPH [address] [place] [address] [email or web address] Surgical Oncology 05/03/24 documented as of this encounter Additional Source Comments The information contained in this document represents components of the legal health record. It is not the complete legal health record.[facility]
--- OUTSIDE RECORDS SUMMARY | 2025-11-01 07:18 | XMS_ITS | Data Portability ---
Author Organization [place] [facility] [place] Address [address] [place] [address] Care Team Providers Care Hand Therapist Name Role Phone JENS HERNÁNDEZ Primary Care Provider JENS HERNÁNDEZ Referring Provider [phone] Assessment Encounter Date Assessment Date Assessment LastModified by Organization Details LastModified Time 05/06/2025 05/06/2025 He is now over 12 weeks following his right shoulder surgery. He is doing well. He will continue therapy on the outlined protocol. I reviewed the natural history of rotator cuff healing, he understands he still needs to be cautious with any medium to higher demand activities and he expressed his understanding. Recheck in 6 weeks, sooner if concerns arise. He knows he can start to wean down on this frequency of therapy to once a week as long as he continues his home program. PRIOR THEODORA: He continues to make steady progress. Ongoing precautions reviewed. He understands this still healing not healed. He will continue with physical therapy per the outlined protocol. He will follow-up with us in 4 weeks PRIOR : I went over my findings with him and his . We will need to monitor him over the next few weeks to see how he progresses with physical therapy and if he potentially did any damage due to the slip and fall. Certainly if he seems like he is not progressing over the next couple of months on the appropriate treatment plan an MRI may be indicated. He can start to wean out of the waist piece of the sling next week. Recheck in 4 weeks, sooner if concerns arise. PRIOR THEODORA: Patient is now 8 days status post right shoulder surgery and is doing very well. He has essentially no pain. I reviewed my findings with the patient today. We reviewed the operative findings. I gave him a prescription to begin physical therapy in 2 to 3 weeks. Questions were invited and answered. Rotator cuff repair recovery outline: Keep incisions dry until sutures removed. No swimming or submerging incisions for three weeks after surgery. Sling for 8 weeks. May remove waist attachment after 4 weeks unless otherwise instructed. Start PT around week 3-4. Most patients participate in therapy for 8-12 weeks, but additional rehab is often necessary to realize full functional goals. No active ROM shoulder for 8 weeks unless otherwise specified. Remove arm from sling to move elbow, wrist, and fingers several times a day. If a biceps tenodesis was performed as part of the surgery flexion at the elbow should be assisted by the other arm. Return to full activity is generally not expected before 5-6 months, but may take up to a year depending on the nature of the repair and other factors such as tissue quality, chronicity of the tear, patient age, and number of tendons involved. Full strength and endurance gains may not be realized until one year or later following surgery. Not available 05/06/2025 11:53:17 07/22/2025 07/22/2025 He is about 6 months following his right shoulder surgery. In general he is doing okay and I reassured him that full results from shoulder surgery may not be seen until up to an over a year from the time of surgery. I have encouraged him to remain compliant with a home exercise program. He will let symptoms be his guide with regards to activity. Recheck in 3 months for the right shoulder, sooner if concerns arise. Questions invited and answered. Greater than 20 minutes was spent with the encounter today, including face to face time with the patient, documentation, review of records/imaging if applicable, and coordination of care. PRIOR: He is now over 12 weeks following his right shoulder surgery. He is doing well. He will continue therapy on the outlined protocol. I reviewed the natural history of rotator cuff healing, he understands he still needs to be cautious with any medium to higher demand activities and he expressed his understanding. Recheck in 6 weeks, sooner if concerns arise. He knows he can start to wean down on this frequency of therapy to once a week as long as he continues his home program. PRIOR THEODORA: He continues to make steady progress. Ongoing precautions reviewed. He understands this still healing not healed. He will continue with physical therapy per the outlined protocol. He will follow-up with us in 4 weeks PRIOR : I went over my findings with him and his . We will need to monitor him over the next few weeks to see how he progresses with physical therapy and if he potentially did any damage due to the slip and fall. Certainly if he seems like he is not progressing over the next couple of months on the appropriate treatment plan an MRI may be indicated. He can start to wean out of the waist piece of the sling next week. Recheck in 4 weeks, sooner if concerns arise. PRIOR THEODORA: Patient is now 8 days status post right shoulder surgery and is doing very well. He has essentially no pain. I reviewed my findings with the patient today. We reviewed the operative findings. I gave him a prescription to begin physical therapy in 2 to 3 weeks. Questions were invited and answered. Rotator cuff repair recovery outline: Keep incisions dry until sutures removed. No swimming or submerging incisions for three weeks after surgery. Sling for 8 weeks. May remove waist attachment after 4 weeks unless otherwise instructed. Start PT around week 3-4. Most patients participate in therapy for 8-12 weeks, but additional rehab is often necessary to realize full functional goals. No active ROM shoulder for 8 weeks unless otherwise specified. Remove arm from sling to move elbow, wrist, and fingers several times a day. If a biceps tenodesis was performed as part of the surgery flexion at the elbow should be assisted by the other arm. Return to full activity is generally not expected before 5-6 months, but may take up to a year depending on the nature of the repair and other factors such as tissue quality, chronicity of the tear, patient age, and number of tendons involved. Full strength and endurance gains may not be realized until one year or later following surgery. Not available 07/22/2025 11:58:34 07/23/2025 07/23/2025 He has a history of a right [...] follow-up. Questions invited and answered. Not available 07/23/2025 17:42:37 08/26/2025 08/26/2025 I went over the MRI [...] He is heading on a trip to [facility] tomorrow for 10 days, we will make [...] invited and answered. Not available 08/26/2025 10:42:08 09/24/2025 09/24/2025 1. Stable medially based right [...] He is heading on a trip to [facility] tomorrow for 10 days, we will make [...] Details Last Modified Time Details Appointments None recorded. Lab None recorded. Referral None recorded. Procedures None recorded. Surgeries None recorded. Imaging XR, knee, 3 view 2024 025 [facility], [address], [place] [address], [place], [address], 14:18:42 MRI, knee, w/wo contrast 2024 025 [facility] ([facility]), [address], [place], [address], 23:45:58 Medication Orders None recorded. Patient TargetsNo targets recorded. Patient InstructionsNo instructions recorded. Reason for Referral None Reported. Results Created Date Observation Date Name Description Value Unit Range Abnormal Flag Note LastModifiedBy Organization Detail LastModifiedTime 08/13/20 25 08/13/2025 MRI, knee, w/wo contr ast No observ ation record ed. [facility] [address] [facility] [place], [address], 08/26/2025 10:44:05 Result Notes None recorded. Problems Name Problem SNOMED Code Status Onset Date Resolution Date Notes Provider Name and Address Organization Details Recorded Time Impingeme nt syndrome of right shoulder region 06258873319 9102 Active 2017 Impingeme nt syndrome of right shoulder Not Available [facility] 5 00:39:15 Impingeme nt syndrome of left shoulder region 84340780975 9104 Active 2020 Impingeme nt syndrome of left shoulder Not Available [facility] 5 00:39:14 Subacromi al bursitis of left shoulder 77956150585 46478 Active 2020 Subacromi al bursitis of left shoulder joint Not Available [facility] 5 00:39:15 Prepatell ar bursitis of right knee 86543404545 9100 Active 2022 LIOR VELASCO PA-C [address], [place], [address] , [place] [facility] 3 08:17:24 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 Active 2022 LIOR VELASCO PA-C [address], [place], [address] , [place] [facility] 3 13:08:25 Pain of right shoulder joint 66041926782 402099 Active [address], [place], [address] , [place] [facility] 4 09:40:11 Pain of left shoulder joint 23538379454 279387 Active [address], [place], [address] , [place] [facility] 5 09:49:50 Pain of right shoulder region Active [address], [place], [address] , [place] [facility] 5 07:58:30 History of repair of musculote ndinous cuff of shoulder 682523329 Active 2024 Eulogio Chavez MD [address], [place], [address] , [place] [facility] 5 07:59:23 Pain of right knee joint 18094882768 4100 Active 2024 Eulogio Chavez MD [address], [place], [address] , [place] [facility] 5 06:47:24 Mass of knee 205457352 Active 2024 Eulogio Chavez MD [address], [place], [address] , [place] [facility] 5 13:52:22 Acute meniscal tear, medial 365270726 Active 2024 Eulogio Chavez MD [address], [place], [address] , [place] [facility] 5 09:49:40 Problem Notes None recorded. Procedures Surgical History Date Name Laterality Status Provider Name and Address Organization Details Recorded Time 025 SHOULDER ARTHROSCOPY (SURG) completed Ayla Lan [facility] 02/07/2025 09:26:53 023 Knee Joint/Bursa Asp & Inj completed LIOR VELASCO PA-C [address] [place] [address], [address], [place] [facility] 09/15/2023 08:15:22 repair of musculotendinous cuff of shoulder completed Nadya Ramon [place] [facility] 06/27/2023 14:15:30 Imaging Results None recorded. Procedure Notes None recorded. Medical Equipment None Reported. Allergies Allergen ID Allergen Name Allergen Category Reaction Reaction Severity Criticality Documentation Date Start Date Code Code System Note Provider Name and Address Organization Details Recorded Time 87969 Product containin g penicilli n (product) medicatio n Not available Not available Not available 04/11/2025 52345 5345 SNOMED Madeline kaminski, [place] [facility] 10:26:48 05857 levofloxa mariela medicatio n Not available Not available Not available 08/06/20252020 91458 RxNorm Not Available [facility] 01:28:16 58166 erythromy mariela medicatio n Not available Not available Not available 08/06/20252018 4053 RxNorm React ion: Other (See Comme nts), sever ity: Unkno wn Not Available [facility] 01:28:16 Medications Name Sig Start Date Stop [...] and Address Organization Details Last Updated DateTime 05/06/2025 177.8 cm 25.7 kg/m2 07278.03 g Мария [address] [place] [facility], 05/06/2025 11:16:35 Date Recorded Body height Body mass index (BMI) Body weight Provider Name and Address Organization Details Last Updated DateTime 07/22/2025 177.8 cm 25.8 kg/m2 91080.[address] [place] [facility] 07/22/2025 10:50:50 Date Recorded Body height Body mass index (BMI) Body weight Provider Name and Address Organization Details Last Updated DateTime 07/23/2025 177.8 cm 26 kg/m2 96248.[address] [place] [facility] 07/23/2025 13:37:31 Date Recorded Body height Body mass index (BMI) Body weight Provider Name and Address Organization Details Last Updated DateTime 08/26/2025 177.8 cm 25.8 kg/m2 48818.[address] [place] [facility] 08/26/2025 09:40:01 Date Recorded Body height Body mass index (BMI) Body weight Provider Name and Address Organization Details Last Updated DateTime 09/24/2025 177.8 cm 26 kg/m2 93496.[address] [place] [facility] 09/24/2025 08:26:04 Social History None recorded. [...] ICD10 Code Diagnosis IMO Codes Diagnosis Note [id number] [address] [place] [address] [address] [place] [address] 06/27/2023 13:34:51 06/27/2023 14:12:40 Pain of right shoulder joint 8492784954 9166687 M25.511 Pain of le ft shoulder joint 7244958590 2681021 M25.512 [id number] [facility] [address] [address] 09/13/2023 14:29:31 09/13/2023 15:30:29 Pain of right knee joint 0141001059 24615 M25.561 Effusion o f joint of right knee 6882012039 02136 M25.461 Prepatella r bursitis of right knee 7819813048 64771 M70.41 53738 [facility] [address] [address] 09/29/2023 15:20:13 09/29/2023 15:55:52 Prepatellar bursitis of right knee 1930924834 15474 M70.41 15527 [facility] [address] [place] [address] 10/18/2024 08:32:20 10/18/2024 09:19:33 Pain of right shoulder region 0224165539 M25.511 87343786 Pain of ri ght shoulder joint 0354128167 2328761 M25.511 History of fall 34080699 9 Z91.81 1303591 04878 MD MAIDA [address] [address] 11/06/2024 09:18:20 11/06/2024 10:00:54 Pain of right shoulder joint 1625076996 5928696 M25.511 History of fall 53763615 9 Z91.81 8921768 [id number] Eulogio Chavez MD [address] [address] 12/24/2024 09:47:09 12/24/2024 10:45:38 Pain of right shoulder joint 9423924800 0169869 M25.511 History of fall 98424877 9 Z91.81 5269019 [id number] Eulogio Chavez MD [facility] [address] [address] 01/14/2025 09:02:46 01/14/2025 09:33:13 Pain of right shoulder region 8962690415 M25.511 62216895 Pain of ri t shoulder joint 8341435738 9543862 M25.511 History of fall 36861808 9 Z91.81 2890389 368351 ZURI [address] [address] 02/14/2025 14:04:03 02/14/2025 14:44:04 Pain of right shoulder region 5968295874 M25.511 82972716 History of operative procedure on shoulder 542635592 Z98.755 4948905 DOS 02/06/25 Right shoulder arthroscop y, rotator cuff repair, subacromia l decompress ion/acromi oplasty, open biceps tenodesis Postoperative visit 1836 02226 Z48.89 89405087 [id number] MD VANDA Abebe [address] [address] 03/11/2025 08:35:51 03/11/2025 09:17:09 Postoperative visit 127736266 Z48.89 66454773 History of repair of musculotendinous cuff of shoulder 068001667 Z98.890 6292913185 DOS 02/06/25 Right shoulder arthroscop y, rotator cuff repair, subacromia l decompress ion/acromi oplasty, open biceps tenodesis [id number] ZURI MOSES [address] [address] 04/11/2025 10:12:44 04/11/2025 10:33:38 Postoperative visit 986899738 Z48.89 09469951 History of repair of musculotendinous cuff of shoulder 318884900 Z98.890 9404485088 DOS 02/06/25 Right shoulder arthroscop y, rotator cuff repair, subacromia l decompress ion/acromi oplasty, open biceps tenodesis [id number] MD VANDA Abebe [address] [address] 05/06/2025 11:00:45 05/06/2025 11:24:45 Postoperative visit 734479573 Z48.89 83158890 History of repair of musculotendinous cuff of shoulder 358584867 Z98.890 2463487394 DOS 02/06/25 Right shoulder arthroscop y, rotator cuff repair, subacromia l decompress ion/acromi oplasty, open biceps tenodesis [id number] MD VANDA Abebe [address] [address] 07/22/2025 10:46:26 07/22/2025 11:06:30 History of repair of musculotendinous cuff of shoulder 899151964 Z98.890 8395527624 DOS 02/06/25 Right shoulder arthroscop y, rotator cuff repair, subacromia l decompress ion/acromi oplasty, open biceps tenodesis Postoperative visit 1836 25087 Z48.89 76251042 [id number] MD VANDA Abebe [address] [address] 07/23/2025 13:18:41 07/23/2025 13:59:58 Pain of right knee joint 1788437878 09005 M25.561 278386 Mass of knee 004640625 R 22.41 [id number] [id number] MD VANDA Abebe [address] [address] 08/26/2025 09:31:27 08/26/2025 10:06:16 Pain of left shoulder joint 3127938868 2774470 M25.512 Pain of ri ght knee joint 2784016800 61765 M25.561 983105 Mass of knee 808270069 R 22.41 82626135 Acute meni scal tear, medial 349050970 S83.231A 1607232 [id number] MD VANDA Abebe [address] [address] 09/24/2025 08:21:08 09/24/2025 08:42:13 Pain of right knee joint 4669759421 66814 M25.561 285789 Mass of knee 445154014 R 22.41 64431832 Acute meni scal tear, medial 105489784 S83.231D 9252292 Health Concerns Section Related Observation LastModified by Organization Detai ls LastModified Time None Recorded Concern Status LastModified by Organization Details LastModified Time None Recorded Advance Directives Directive None Recorded Payers Insurance Date Sequence Insurance Name Policy Number Policy Melton Covered Member ID Melton Member ID Guarantor Name 10/23/2024 1 [place] [id number] Faraz Bailey [id number] Faraz Bailey 09/12/2023 2 [place] [id number] Faraz Bailey [id number] Faraz Bailey Notes Date Note Type Note Provider Name and Address Organization Details Recorded Time 05/06/2025 text/html ROS as noted in the HPI DOS 02/06/25 Right shoulder arthroscopy, rotator cuff repair, subacromial decompression/acrom ioplasty, open biceps tenodesisHe is now 12-1/2 weeks following his right shoulder surgery. He feels he is making steady progress. He continues in therapy twice a week. They are working on some light strengthening with bands. They are working on range of motion. He rates his worst pain between a 1 to a 3 on a 10 point scale. He denies any new injuries. PRIOR THEODORA:Patient returns the office today now 9 weeks status post right shoulder surgery. He discontinued use of his sling last week. He notes he is still sleeping in it. Overall he reports he is feeling good. His pain continues to improve every day. Varies between 1 and a 3 on a 10 point scale. He offers no new complaints today.PRIOR:He is now about a month following his right shoulder surgery. He was doing well up until last Tuesday when he slipped in his garage on a piece of upside down [place]. He fell predominantly onto his left side. He was wearing his sling on the right. He noted a bit of increased discomfort but nothing severe. He has had 1 visit of physical therapy so far, he has a couple visits scheduled this week. He rates his pain today as a 1 to a 3 on a 10 point scale. He denies any issues with the incisions.PRIOR THEODORA:Patient presents for their first post op visit with his . Patient is now 8 days status post right shoulder surgery and reports he is doing great. He has no pain. He is not requiring anything for medication. He has been compliant with his sling. His reports that after we spoke to her about the possible rash on his arm it was in fact just discoloration from the prep and came off when she cleaned it.Patient denies fevers or chills. Denies problems with the incisions. Denies chest pain, calf pain, or shortness of breath. Eulogio Chavez MD [address], [place], [address], [place] [facility] 05/06/2025 11:53:27 07/22/2025 text/html ROS as noted in the HPI DOS 02/06/25 Right shoulder arthroscopy, rotator cuff repair, subacromial decompression/acrom ioplasty, open biceps tenodesisHe is now about 6 months following his right shoulder surgery. He feels he is overall doing well but still has some soreness with certain movements and in certain positions. He comments that about 6 months after his left shoulder surgery he was doing just fine. He completed physical therapy couple weeks ago. He does have a home exercise program. He feels his range of motion overall is pretty good. He denies any new injuries. He rates his pain today at rest as a 0/10. He is also reporting some persistent right knee pain and is going to schedule an appointment for that. Briefly he has a history of some swelling in the knee drained twice and was diagnosed with pseudogout. More recently he has noted some swelling and a lump over the medial knee around the hamstring region. PRIOR:He is now 12-1/2 weeks following his right shoulder surgery. He feels he is making steady progress. He continues in therapy twice a week. They are working on some light strengthening with bands. They are working on range of motion. He rates his worst pain between a 1 to a 3 on a 10 point scale. He denies any new injuries.PRIOR THEODORA:Patient returns the office today now 9 weeks status post right shoulder surgery. He discontinued use of his sling last week. He notes he is still sleeping in it. Overall he reports he is feeling good. His pain continues to improve every day. Varies between 1 and a 3 on a 10 point scale. He offers no new complaints today.PRIOR:He is now about a month following his right shoulder surgery. He was doing well up until last Tuesday when he slipped in his garage on a piece of upside down [employer]. He fell predominantly onto his left side. He was wearing his sling on the right. He noted a bit of increased discomfort but nothing severe. He has had 1 visit of physical therapy so far, he has a couple visits scheduled this week. He rates his pain today as a 1 to a 3 on a 10 point scale. He denies any issues with the incisions.PRIOR THEODORA:Patient presents for their first post op visit with his . Patient is now 8 days status post right shoulder surgery and reports he is doing great. He has no pain. He is not requiring anything for medication. He has been compliant with his sling. His reports that after we spoke to her about the possible rash on his arm it was in fact just discoloration from the prep and came off when she cleaned it.Patient denies fevers or chills. Denies problems with the incisions. Denies chest pain, calf pain, or shortness of breath. Eulogio Chavez MD [address], [place], [address], [place] [facility] 07/22/2025 11:58:46 07/23/2025 text/html ROS as noted in the HPI 65-year-old male well-known to me presents for an [...] times the lump can be tender. Eulogio Chavze MD [address], [place], [address], [place] [facility] 07/23/2025 17:44:22 08/26/2025 text/html ROS as noted in the [...] Eulogio Chavez MD [address], [place], [address], [place] [facility] 08/26/2025 10:44:36 09/24/2025 text/html ROS as noted in the HPI Patient returns for follow-up of his right knee. His symptoms have continued to improve. He had a great vacation to [facility]. He has occasional medially based discomfort with [...] Eulogio Chavez MD [address], [place], [address], [place] [facility] 09/24/2025 12:41:19
--- OUTSIDE RECORDS SUMMARY | 2025-11-01 07:18 | XMS_ITS | Clinical Summary ---
Author Organization [facility] Address [address] [place] [phone] Phone Care Team Providers Care Compliance Intern Name Role Phone Kaden Boston NP Primary Care Provider + Rehan Gaviria MD Unavailable [phone] Jeffery Wells MD Unavailable [phone] Stewart Munoz MD, MPH Unavailable [phone] Allergies Active Allergy Reactions Criticality Noted Date [...] of small intestine 07/27 S/P colectomy 06/20/2024 Encounters Date Type Department Care Team Description 08/09/2025 10:00 AM EDT Office Visit [facility], [facility] [address] [facility], 10th [place] [address] Stewart Munoz MD, MPH Jeffery Wells MD Neuroendocrine neoplasm of small intestine (Primary Dx) 08/09/2025 6:51 AM EDT - 08/09/2025 11:59 PM EDT Hospital Encounter [facility] Imaging Department, [facility], [place] [address] [facility], Floor [address]1 [place] [address] Stewart Munoz MD, MPH Discharge Disposition: Home or Self Care 01/25/2025 Procedure Pass [facility] Imaging Department, [facility], [place] [address] [facility], [address] [place] [address] 01/25/2025 Procedure Pass [facility] Imaging Department, [facility], [place] [address] [facility], [address] [place] [address] from Last 3 Months Family History Medical History Relation Comments Colon [...] Sign Reading Time Taken Comments Blood Pressure 167/79 08/09/2025 8:26 AM EDT Pulse 57 08/09/2025 8:26 AM EDT Temperature 36.2 C (97.1 F) 08/09/2025 8:26 AM EDT Respiratory Rate 16 08/09/2025 8:26 AM EDT Oxygen Saturation 98% 08/09/2025 8:26 AM EDT Inhaled Oxygen Concentration - - Weight 80.8 kg (178 lb 2.1 oz) 08/09/2025 8:26 A M EDT Height 174.7 cm (5' 8.78 ) 08/09/2025 8:26 AM ED T Body Mass Index 26.47 08/09/2025 8:26 AM EDT Plan of Treatment Upcoming Encounters Date Type Department Care Team (Late st Contact Info) Description 08/09/2025 Procedure Pass [facility] Imaging Department, [facility], [place] [address] [facility], [address]1 [place] [address] 08/09/2025 Procedure Pass [facility] Imaging Department, [facility], [place] [address] [facility], [address] [place] [address] 02/07/2026 6:30 AM EDT Blood Draw [facility] Imaging Department, [facility], Imaging [id number] [address] [facility], [address] [place] [address] Jeffery Wells MD [address] [place] [id number] [email or web address] 02/07/2026 7:30 AM EDT Appointment [facility] Imaging Department, [facility], [place] [address] [facility], Floor [address]1 [place] [address] Stewart Munoz MD, MPH [address] [place] [address] [address] [place] [address] [email or web address] 02/07/2026 10:30 AM EDT Office Visit [facility], [facility] [address] [facility], 10th [place] [address] Jeffery Wells MD [address] [place] [email or web address] Health Maintenance Due Date Last Done Comments LIPID PANEL 1958 DEPRESSION SCREENING 1970 SMOKING Hx and SMOKELESS TOBACCO SCREENING 1971 HEPATITIS C SCREENING 1976 COLOGUARD 2003 COLONOSCOPY 2003 COLORECTAL CANCER SCREENING 2003 FIT TEST 2003 FOBT 2003 SIGMOIDOSCOPY 2003 VIRTUAL COLONOSCOPY 2003 ZOSTER VACCINES (1 of 2) 2008 INFLUENZA VACCINE (#1) 2025 COVID-19 VACCINE ( - season) 2025 CREATININE LEVEL 08/09/2026 08/09/2025, , 06/23/2024, Additional history exists POTASSIUM LEVEL 08/09/2026 08/09/2025, 01/12, 06/23/2024, Additional history exists SCREENING FOR DIABETES 08/09/2028 08/09/2025 Adult Td,Tdap Booster 08/15/2031 08/15/2021, 014 RSV VACCINE (1 - 1-dose 75+ series) 2033 PNEUMOCOCCAL VACCINES (50+ years) Completed 03/24/2023 ABDOMINAL AORTIC ANEURYSM (AAA) SCREENING Completed 08/09/2025, 01/25/2025, 05/16/2024 HEPATITIS A VACCINES Aged Out [...] Diagnosis Comments CT ABDOMEN/PELVIS WITH CONTRAST Routine 08/09/2025 8:04 AM EDT Neuroendocrine neoplasm of small intestine CT CHEST WITH CONTRAST Routine 8:04 AM EDT Neuroendocrine neoplasm of small intestine MAGNESIUM Routine 08/09/2025 6:59 AM EDT Neuroendocrine neoplasm of small intestine CHROMOGRANIN A Routine 08/09/2025 6:59 AM EDT Neuroendocrine neoplasm of small intestine CBC Routine 08/09/2025 6:59 AM EDT Neuroendocrine neoplasm of small intestine COMPREHENSIVE METABOLIC PANEL (CMP) Routine 08/09/2025 6:59 AM EDT Neuroendocrine neoplasm of small intestine from Last 3 Months Results * CT CHEST WITH CONTRAST (08/09/2025 8:04 AM EDT) Anatomical Region Laterality Modality Chest Computed Tomogra phy Other 08/09/2025 8:34 AM EDT Impressions 08/09/2025 9:02 AM EDT No convincing evidence of metastatic disease in the chest. Narrative 08/09/2025 9:[address] CHEST WITH CONTRAST Referring clinician's provided indication for this examination in [facility]: * Neuroendocrine tumor (NET), gastrointestinal, monitor TECHNIQUE: Multidetector CT of the chest was performed with intravenous contrast using tailored dose modulation techniques. COMPARISON: CT CHEST WITH CONTRAST FINDINGS: Devices/Tubes/Lines: None. Lungs: Similar biapical scarring. Unchanged scattered sub-4 mm lung nodules including left upper lobe (12:101, 102, 115) and right upper lobe (12:119). Mild diffuse bronchial wall thickening. Minimal dependent atelectasis. Pleura: No pleural effusion or pneumothorax. Mediastinum: Normal heart size. No pericardial effusion. Minimal coronary artery calcification. Lymph Nodes: No enlarged supraclavicular, axillary, mediastinal, or hilar lymph nodes. Upper Abdomen: Please see concurrent abdominal CT for abdominal findings. Chest Wall: No chest wall mass. Bones: Degenerative change thoracic spine. No suspicious osseous lesion. Procedure Note Susy Choi MD - 08/09/2025 CT CHEST WITH CONTRAST Referring clinician's provided indication for this examination in [facility]: *Neuroendocrine tumor (NET), gastrointestinal, monitor TECHNIQUE: Multidetector CT of the chest was performed with intravenouscontrast using tailored dose modulation techniques. COMPARISON: CT CHEST WITH CONTRAST FINDINGS: Devices/Tubes/Lines: None. Lungs: Similar biapical scarring. Unchanged scattered sub-4 mm lungnodules including left upper lobe (12:101, 102, 115) and right upper lobe(12:119). Mild diffuse bronchial wall thickening. Minimal dependentatelectasis. Pleura: No pleural effusion or pneumothorax. Mediastinum: Normal heart size. No pericardial effusion. Minimal coronaryartery calcification. Lymph Nodes: No enlarged supraclavicular, axillary, mediastinal, or hilarlymph nodes. Upper Abdomen: Please see concurrent abdominal CT for abdominalfindings. Chest Wall: No chest wall mass. Bones: Degenerative change thoracic spine. No suspicious osseous lesion. IMPRESSION: No convincing evidence of metastatic disease in the chest. us Stewart Munoz MD, MPH IMG CT CHEST Final Resu lt * CT ABDOMEN/PELVIS WITH CONTRAST (08/09/2025 8:04 AM EDT) Anatomical Region Laterality Modality Abdomen, Pelvis Computed Tomogra phy Other 08/09/2025 8:44 AM EDT Impressions 08/09/2025 10:39 AM EDT No evidence of recurrent or metastatic disease in abdomen or pelvis. ATTESTATION: Lyndsey Savage, as teaching physician have reviewed the images, if any, for this patient's exam, and if necessary, have edited the report originally created by Sly Olea. 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 Regional lymph node involvement from surgical path from oncology note dated 01/25/2025. Follow-up scan. TECHNIQUE: Multidetector-row CT of the abdomen and pelvis was performed after administration of intravenous contrast using tailored dose modulation techniques. Images were reconstructed in the axial, coronal, and sagittal planes. COMPARISON: CT ABDOMEN/PELVIS WITH CONTRAST ; NM PET CT NEUROENDOCRINE TUMOR LOCALIZATION FINDINGS: Lower Chest: CT chest from the same day is reported separately. Liver: Normal. No focal lesions. Biliary: Normal. No biliary ductal dilatation. Spleen: Normal. No splenomegaly or focal lesions. Pancreas: Normal. No masses or ductal dilatation. Adrenal Glands: Normal. No nodules. Kidneys/Ureters: Normal. No solid masses, stones, or hydronephrosis. Bowel: Status post right hemicolectomy. No abnormal enhancement along ileocolic anastomosis. No distention or wall thickening. Peritoneum/Retroperitoneum: Similar nodularity of right paracolic gutter, most likely postsurgical. No pneumoperitoneum or fluid. Lymph Nodes: Similar few subcentimeter nancy hepatis lymph nodes. Pelvic Organs/Bladder: Status post TURP and bilateral vasectomy. No mass. Vessels: Atherosclerosis. Replaced right hepatic artery from superior mesenteric artery. No abdominal aortic aneurysm. Bones/Soft Tissues: Anterior abdominal wall postsurgical changes. Similar mild discovertebral degenerative changes of lumbar spine. No destructive bone lesion. Procedure Note Lyndsey Spann MD - 08/09/2025 CT ABDOMEN/PELVIS WITH CONTRAST Referring clinician's provided indication for this examination in Epic: *Neuroendocrine tumor (NET), gastrointestinal, monitor Review of the Electronic Medical Record reveals an additional history of:65-year-old male status post laparoscopic right hemicolectomy forwell-differentiated neuroendocrine tumor of the terminal ileum (06/20/2024).Regional lymph node involvement from surgical path from oncology notedated 01/25/2025. Follow-up scan. TECHNIQUE: Multidetector-row CT of the abdomen and pelvis was performedafter administration of intravenous contrast using tailored dosemodulation techniques. Images were reconstructed in the axial, coronal,and sagittal planes. COMPARISON: CT ABDOMEN/PELVIS WITH CONTRAST ; NM PET CTNEUROENDOCRINE TUMOR LOCALIZATION FINDINGS: Lower Chest: CT chest from the same day is reported separately. Liver: Normal. No focal lesions. Biliary: Normal. No biliary ductal dilatation. Spleen: Normal. No splenomegaly or focal lesions. Pancreas: Normal. No masses or ductal dilatation. Adrenal Glands: Normal. No nodules. Kidneys/Ureters: Normal. No solid masses, stones, or hydronephrosis. Bowel: Status post right hemicolectomy. No abnormal enhancement alongileocolic anastomosis. No distention or wall thickening. Peritoneum/Retroperitoneum: Similar nodularity of right paracolic gutter,most likely postsurgical. No pneumoperitoneum or fluid. Lymph Nodes: Similar few subcentimeter nancy hepatis lymph nodes. Pelvic Organs/Bladder: Status post TURP and bilateral vasectomy. Nomass. Vessels: Atherosclerosis. Replaced right hepatic artery from superiormesenteric artery. No abdominal aortic aneurysm. Bones/Soft Tissues: Anterior abdominal wall postsurgical changes. Similarmild discovertebral degenerative changes of lumbar spine. No destructivebone lesion. IMPRESSION: No evidence of recurrent or metastatic disease in abdomen or pelvis. ATTESTATION: Lyndsey Savage, as teaching physician have reviewed theimages, if any, for this patient's exam, and if necessary, have edited thereport originally created by Sly Olea. us Stewart Munoz MD, MPH IMG CT ABD/PELVIS Final Re sult * (ABNORMAL) Comprehensive metabolic panel (08/09/2025 6:59 AM EDT) SODIUM 137 136 - 145 mmol/L [facility] POTASSIUM 4.6 3.4 - 5.1 mmol/L [facility] CHLORIDE 103 98 - 107 mmol/L [facility] CO2 24 22 - 31 mmol/L [facility] BUN 20 6 - 23 mg/dL [facility] CREATININE 0.97 0.50 - 1.20 mg/dL [facility] GLUCOSE 112(H) 70 - 100 mg/dL [facility] ALBUMIN 4.7 3.5 - 5.2 g/dL [facility] TOTAL PROTEIN 7.7 6.4 - 8.3 g/dL [facility] CALCIUM 9.9 8.8 - 10.7 mg/dL [facility] ALKALINE PHOSPHATASE 99 40 - 129 U/L [facility] TOTAL BILIRUBIN 0.7 0.2 - 1.2 mg/dL [facility] AST 28 <41 U/L [facility] ALT 31 <42 U/L [facility] GLOBULIN 3.0 2.3 - 4.2 g/dL [facility] EGFR 86 >59 mL/min/1.7 3m2 [facility] Comment:Estimated glomerular filtration rate calculated using the CKD-EPI refit equation. ANION GAP 10 7 - 17 mmol/L [facility] Blood 08/09/2025 6:59 AM EDT 08/09/2025 7:03 AM EDT Stewart Munoz MD, MPH LAB BLOOD BKR ORDERABLES F inal Result [facility] [address] [place] [address] * (ABNORMAL) Chromogranin A (08/09/2025 6:59 AM EDT) CHROMOGRANIN A 469(H) <93 ng/mL [facility] [address] Comment: (NOTE) Impaired renal or hepatic function or treatment with proton pump inhibitors may result in artifactual elevations of Chromogranin A. ADDITIONAL INFORMATION The testing method is a homogeneous time-resolved immunofluorescent assay manufactured by [employer] and performed on the [employer] Kryptor Compact Plus. Values obtained with different assay methods or kits may be different and cannot be used interchangeably. Test results cannot be interpreted as absolute evidence for the presence or absence of malignant disease. In some immunoassays, the presence of unusually high concentrations of analyte may result in a high-dose hook effect. This may result in a lower or even normal measured analyte concentration. If the reported result is inconsistent with the clinical presentation, the laboratory should be alerted for troubleshooting. For diagnostic purposes, these immunoassay results should always be assessed in conjunction with the patients medical history, clinical examination and other findings. Blood 08/09/2025 6:59 AM EDT 08/09/2025 7:03 AM EDT Jeffery Wells MD LAB BLOOD ORDERABLES Final Result [facility] [address] [place] [address] * CBC (08/09/2025 6:59 AM EDT) WBC 6.75 4.00 - 10.00 K/uL [facility] RBC 4.93 4.50 - 6.40 M/uL [facility] HGB 14.6 13.5 - 18.0 g/dL [facility] HCT 43.5 40.0 - 54.0 % [facility] PLT 204 150 - 450 K/uL [facility] MCV 88.2 80.0 - 100.0 fL [facility] MCH 29.6 27.0 - 32.0 pg [facility] MCHC 33.6 32.0 - 36.0 g/dL [facility] RDW 12.6 11.5 - 14.5 % [facility] MPV 8.8 8.4 - 12.0 fL [facility] NRBC 0.00 0 /100 WBCs [facility] ABSOLUTE NRBC 0.00 0 K/uL [facility] Blood 08/09/2025 6:59 AM EDT 08/09/2025 7:03 AM EDT us Stewart Munoz MD, MPH LAB BLOOD BKR ORDERABLES F inal Result [facility] [address] [place] [address] * Magnesium (08/09/2025 6:59 AM EDT) MAGNESIUM 2.1 1.7 - 2.6 mg/dL [facility] Blood 08/09/2025 6:59 AM EDT 08/09/2025 7:03 AM EDT us Jeffery Noé Wells MD LAB BLOOD BKR ORDERABLES Fi nal Result [facility] [address] [place] [address] from Last 3 Months Insurance MEDICARE PPO BLUE REPLACEMENT MEDICARE PART A & [place] [address] [address] MEDICARE PPO BLUE REPLACEMENT MEDICARE PART A & B MEDICARE PPO BLUE REPLACEMENT MEDICARE PART A & B MEDICARE PPO BLUE REPLACEMENT MEDICARE PART A & B MEDICARE PPO BLUE REPLACEMENT MEDICARE PART A & B [place] P[place] BLUE REPLACEMENT MEDICARE PART A & B Care Teams Compliance Intern Relationship Specialty Start Date End Date Kaden Boston NP [address] [address] PCP - General Nurse Practitioner 05/03/24 Rehan Gaviria MD [address] [place] [address] [address] [place] [address] Gastroenterology 05/03/24 Jeffery Wells MD [address] [place] [address] [place] [email or web address] Medical Oncology 05/03/24 Stewart Munoz MD, MPH [address] [place] [phone] [email or web address] Surgical Oncology 05/03/24 Additional Source Comments The information contained in this document represents components of the legal health record. It is not the complete legal health record.[facility]
--- OUTSIDE RECORDS SUMMARY | 2025-11-01 07:18 | XMS_ITS | Encounter Summary ---
Author Organization [facility] Address [address] [place] [address] [place] [address] Phone Care Team Providers Care Supervisor Of Operations Name Role Phone Kaden Boston NP Primary Care Provider + Rehan Gaviria MD Unavailable [phone] Jeffery Wells MD Unavailable [phone] Stewart Munoz MD, MPH Unavailable [phone] Encounter Details Date Type Department Care Team (Late st Contact Info) Description 01/25/2025 Procedure Pass [facility], [facility] [place] [address] [facility], [address] [place] [address] Social History Tobacco Use Types Packs/Day Years [...] st Contact Info) Description 08/09/2025 Procedure Pass [facility] Imaging Department, [facility] [place], [place] [address] [facility], [address] [place], [place] [address] 08/09/2025 Procedure Pass [facility] Imaging Department, [facility], [place] [address] [facility], [address] [place] [address] 02/07/2026 6:30 AM EDT Blood Draw [facility] Imaging Department, [facility], Imaging [id number] [address] [facility], [address] [place] [address] Jeffery Wells MD [address] [phone] [email or web address] 02/07/2026 7:30 AM EDT Appointment [facility] Imaging Department, [facility], [place] [address] [facility], [address] [place] [address] Stewart Munoz MD, MPH [address] [place] [address] 3rd [place] [address] [email or web address] 02/07/2026 10:30 AM EDT Office Visit [facility], [facility] [address] [facility], 10th [place] [address] Jeffery Wells MD [address] [phone] [email or web address] documented as of this encounter Visit Diagnoses Not on filedocumented in this encounter Care Teams Supervisor Of Operations Relationship Specialty Start Date End Date Kaden Boston NP [address] [place] [address] PCP - General Nurse Practitioner 05/03/24 Rehan Gaviria MD [address] [place] [address] [address] [place] [address] Gastroenterology 05/03/24 Jeffery Wells MD [address] [place], [place] [address]cheryl [place] [address] [place] [phone] [email or web address] 05/03/24 Stewart Munoz MD, MPH [address] [place] [id number] [email or web address] Surgical Oncology 05/03/24 documented as of this encounter Additional Source Comments The information contained in this document represents components of the legal health record. It is not the complete legal health record.[facility]
== END 2025-11-01 07:13 | disposition home or self-care (01) ==
LOC: HO.MRI 07:12
PROVIDERS: PCP Nurse Practitioner Family; Visit Provider Nurse Practitioner Family
DX: R20.0 Anesthesia of skin (principal); M50.90 Cervical disc disorder, unspecified, unspecified cervical region
CPT/HCPCS: 72141